=== PATIENT | female | born 1935 | race Caucasian/White ===

== ENCOUNTER 2023-06-30 08:06 | Emergency (ER) | payer MEDICARE, SELFPAY ==
[2023-06-30 08:12] VITALS: BP 112/80; PULSE 80; RESP 16; TEMP 37.3; O2SAT 96; BMI 31.2
--- NOTE | 2023-06-30 08:35 | PC.NURSE ---
pt c/o diarrhea since yesterday. took 1 immodium yesterday which seemed to help, but has not taken any today. Daughter at bedside answering all of the questions, despite pt being able to talk. Pt denies any associated abd pain, nausea/vomiting or feeling dizzy. Pt denies fevers as well.
[2023-06-30] MEDS: LOPERAMIDE HCL 1 MG/7.5 ML LIQUID PO (09:05)
--- NOTE | 2023-06-30 09:16 | PC.NURSE ---
another RN in attempting to get IV via Ultrasound. an IV was established this way but pt states take it out, it hurts too much . IV removed. Informed Dr. Daniels. Dr in to discuss with patient importance of IV and IVF. Pt agreeable. Attempting another one.
[2023-06-30 09:23] LABS: Basophils Percent Auto 0.3 % (0.2-2.0); Eosinophils Absolute Auto 0.1 10^3/uL (0.0-0.7); Eosinophils Percent Auto 1.7 % (0.9-7.0); Hemoglobin 12.9 g/dL (12.0-16.0); Immature Granulocytes Abs Auto 0.02 10^3/uL (0.00-0.03); Immature Granulocytes Pct Auto 0.3 % (0.0-0.5); Lymphocytes Absolute Auto 1.3 10^3/uL (1.2-3.8); Lymphocytes Percent Auto 18.9 % (20.5-60.0); Mean Corpuscular HGB Conc 32.3 g/dL (29.9-35.2); Mean Corpuscular Hemoglobin 30.6 pg (26.7-34.0); Mean Platelet Volume 11.4 fL (9.5-13.5); Monocytes Absolute Auto 0.5 10^3/uL (0.3-0.8); Monocytes Percent Auto 6.9 % (1.7-12.0); Neutrophils Absolute Auto 4.8 10^3/uL (1.4-6.5); Neutrophils Percent Auto 71.9 % (43.0-75.0); Platelet Count 88 10^3/uL (150-450); Red Blood Count 4.21 10^6/uL (4.20-5.40); Red Cell Distribution Width 12.7 % (11.0-15.0); White Blood Count 6.6 10^3/uL (4.0-11.0)
[2023-06-30 09:32] LABS: Anion Gap 12.3; BUN Creatinine Ratio 21.1; Calcium 9.2 mg/dL (8.5-10.1); Carbon Dioxide 28.9 mmol/L (21.0-32.0); Chloride 105 mmol/L (98-107); Estimated GFR (African America >60 (>=60); Estimated GFR (Non-African Ame 59 (>=60); Glucose 102 mg/dL (74-106); Potassium 4.2 mmol/L (3.5-5.1); Sodium 142 mmol/L (136-145)
[2023-06-30] MEDS: 0.9 % SODIUM CHLORIDE 1,000 ML 999 ML IV (10:02)
--- NOTE | 2023-06-30 11:28 | ED_ITS ---
HPI - General Adult General Chief complaint: Nausea/Vomiting/Diarrhea Stated complaint: DIARRHEA Time Seen by Provider: 06/30/23 08:34 Source: patient and family Mode of arrival: Wheelchair Limitations: no limitations History of Present Illness HPI narrative: this patient's here from home with numerous episodes of diarrhea. It's copious and watery. She's not been on any antibiotics. She's not had a fever. She's not seen blood. She's not had any vomiting. She has not taken any by mouth fluids despite not being nauseated. She was took one dose of an antidiarrheal. She has no complaints today and has minimal abdominal discomfort. He has no chest pain or shortness of breath. Related Data Home Medications Medication Instructions Recorded Confirmed aspirin 81 mg tablet,delayed 81 mg PO DAILY 06/30/23 06/30/23 release (Adult Aspirin Regimen) linaclotide 72 mcg capsule 72 mcg PO DAILY 06/30/23 06/30/23 (Linzess) lisinopril 10 mg tablet 10 mg PO DAILY 06/30/23 06/30/23 omeprazole 40 mg capsule,delayed 40 mg PO DAILY 06/30/23 06/30/23 release ropinirole 1 mg tablet 1 mg PO DAILY 06/30/23 06/30/23 simvastatin 20 mg tablet 20 mg PO DAILY 06/30/23 06/30/23 Allergies Allergy/AdvReac Type Severity Reaction Status Date / Time No Known Drug Allergies Allergy Verified 06/30/23 08:18 [facility] Social History Smoking status: Never smoker Exam Narrative Exam Narrative: awake alert no apparent distress vital signs are stable she's not tachycardic. Examination abdomen discloses good bowel sounds with no guarding rebound rigidity or peritoneal findings. Respiratory her lungs are clear is no respiratory distress. Heart sounds are regular. Extremities show no edema or evidence of phlebitis or cellulitis. Constitutional Vital Signs, click to edit/add: Last Vital Signs Temp 99.2 F 06/30/23 08:12 Pulse 80 06/30/23 08:12 Resp 16 06/30/23 08:12 BP 112/80 06/30/23 08:12 Pulse Ox 96 06/30/23 08:12 O2 Del Method Room Air 06/30/23 08:12 Course Vital Signs Vital signs: Vital Signs Temperature 99.2 F 06/30/23 08:12 Pulse Rate 80 06/30/23 08:12 Respiratory Rate 16 06/30/23 08:12 Blood Pressure 112/80 06/30/23 08:12 Pulse Oximetry 96 06/30/23 08:12 Oxygen Delivery Method Room Air 06/30/23 08:12 Temperature 99.2 F 06/30/23 08:12 Pulse Rate 80 06/30/23 08:12 Respiratory Rate 16 06/30/23 08:12 Blood Pressure 112/80 06/30/23 08:12 Pulse Oximetry 96 06/30/23 08:12 Oxygen Delivery Method Room Air 06/30/23 08:12 Medical Decision Making MDM Narrative Medical decision making narrative: based on her history patient will be given some IV fluids and one dose of Imodium. Her white blood cell count is normal as is her hemoglobin and hematocrit. Her been running creatinines are normal eyes are her electrolytes. despite numerous attempts for stool analysis here she was unable to provide a substantial amount despite being here for over several hours. We'll send her home with still basin cup. I do not believe she needs empiric anabiotic therapy at this time. Lab Data Labs: Lab Results 06/30/23 Range/Units 09:16 WBC 6.6 (4.0-11.0) 10^3/uL RBC 4.21 (4.20-5.40) 10^6/uL Hgb 12.9 (12.0-16.0) g/dL Hct 40.0 (36.0-48.0) % MCV 95.0 (81.0-99.0) fL MCH 30.6 (26.7-34.0) pg MCHC 32.3 (29.9-35.2) g/dL RDW 12.7 (11.0-15.0) % Plt Count 88 L (150-450) 10^3/uL MPV 11.4 (9.5-13.5) fL Neut % (Auto) 71.9 (43.0-75.0) % Lymph % (Auto) 18.9 L (20.5-60.0) % Piute % (Auto) 6.9 (1.7-12.0) % Eos % (Auto) 1.7 (0.9-7.0) % Baso % (Auto) 0.3 (0.2-2.0) % Neut # (Auto) 4.8 (1.4-6.5) 10^3/uL Lymph # (Auto) 1.3 (1.2-3.8) 10^3/uL Piute # (Auto) 0.5 (0.3-0.8) 10^3/uL Eos # (Auto) 0.1 (0.0-0.7) 10^3/uL Baso # (Auto) 0.0 (0.0-0.1) 10^3/uL Abs Immat Gran (auto) 0.02 (0.00-0.03) 10^3/uL Imm/Tot Granulo (auto) 0.3 (0.0-0.5) % Sodium 142 (136-145) mmol/L Potassium 4.2 (3.5-5.1) mmol/L Chloride 105 (98-107) mmol/L Carbon Dioxide 28.9 (21.0-32.0) mmol/L Anion Gap 12.3 BUN 19.0 H (7.0-18.0) mg/dL Creatinine 0.90 (0.55-1.02) mg/dL Est GFR ( Amer) >60 (>=60) Est GFR (Non-Af Amer) 59 L (>=60) BUN/Creatinine Ratio 21.1 Glucose 102 (74-106) mg/dL Calcium 9.2 (8.5-10.1) mg/dL Discharge Plan Discharge Chief Complaint: Nausea/Vomiting/Diarrhea Clinical Impression: Diarrhea Patient Disposition: Home, Self-Care Time of Disposition Decision: 11:30 Prescriptions / Home Meds: No Action Linzess 72 mcg capsule 72 mcg PO DAILY lisinopril 10 mg tablet 10 mg PO DAILY omeprazole 40 mg capsule,delayed release(DR/EC) 40 mg PO DAILY ropinirole 1 mg tablet 1 mg PO DAILY simvastatin 20 mg tablet 20 mg PO DAILY aspirin [Adult Aspirin Regimen] 81 mg tablet,delayed release (DR/EC) 81 mg PO DAILY Additional Instructions: drink additional fluids. Return stool specimen here for analysis may use Imodium [id number] Stand Alone Forms: Portal Instructions Referrals: Krunal Alberto MD [Primary Care Provider] - 1 week
== END 2023-06-30 11:56 | disposition home or self-care (01) ==
PROVIDERS: Emergency Provider Emergency Medicine Emergency Medical Services; PCP Family Medicine
DX: R19.7 Diarrhea, unspecified (principal); Z79.82 Long term (current) use of aspirin; Z79.899 Other long term (current) drug therapy
CPT/HCPCS: 36415; 80048; 85025; 87507; 99284

== ENCOUNTER 2023-07-08 08:53 | Outpatient (REF) | payer MEDICARE, SELFPAY ==
[2023-07-08 09:09] LABS: Adenovirus F 40/41 NOT DETECTED (NOT DETECTE); Astrovirus NOT DETECTED (NOT DETECTE); Campylobacter NOT DETECTED (NOT DETECTE); Cryptosporidium NOT DETECTED (NOT DETECTE); Cyclospora cayetanensis NOT DETECTED (NOT DETECTE); Entamoeba histolytica NOT DETECTED (NOT DETECTE); Enteroaggregative E.coli NOT DETECTED (NOT DETECTE); Enteropathogenic E.coli NOT DETECTED (NOT DETECTE); Enterotoxigenic E. coli NOT DETECTED (NOT DETECTE); Giardia lamblia NOT DETECTED (NOT DETECTE); Norovirus GI/GII NOT DETECTED (NOT DETECTE); Plesiomonas shigelloides NOT DETECTED (NOT DETECTE); Rotavirus A NOT DETECTED (NOT DETECTE); Salmonella NOT DETECTED (NOT DETECTE); Sapovirus NOT DETECTED (NOT DETECTE); Shiga-like toxin-producing E.C NOT DETECTED (NOT DETECTE); Shigella/Enteroinvasive E.coli NOT DETECTED (NOT DETECTE); Vibrio NOT DETECTED (NOT DETECTE); Vibrio cholerae NOT DETECTED (NOT DETECTE); Yersinia enterocolitica NOT DETECTED (NOT DETECTE)
== END 2023-07-08 08:54 | disposition home or self-care (01) ==
LOC: LAB 08:53
PROVIDERS: PCP Family Medicine; Visit Provider Emergency Medicine Emergency Medical Services
DX: R19.7 Diarrhea, unspecified (principal)
CPT/HCPCS: 87507

== ENCOUNTER 2023-08-10 01:20 | Observation (INO) | payer MEDICARE, SELFPAY ==
[2023-08-10 01:22] VITALS: BP 170/88; PULSE 82; RESP 20; TEMP 36.7; O2SAT 99; BMI 28.4
--- NOTE | 2023-08-10 01:32 | PC.NURSE ---
pt brought in by ems because patient states that yesterday she was quilting and when she stood up she had a dull aching pain starting from left hip down to left calf. patient states that she thinks left leg is more swollen than right. patients left leg doesn't appear red or swollen on time of arrival. patient denies hx of blood clots. pt denies fall or injury. not on blood thinners. pulses palpable. patient states leg is painful to touch at times.
--- NOTE | 2023-08-10 01:35 | XR_ITS ---
The [address] [address] Patient Name: NORY BERG MRN: [id number] date: 1935 Sex: F Assigned Patient Location: ER Current Patient Location: ER Accession/Order Number: [id number] Exam Date: 08/10/2023 01:55 Report Date: 08/10/2023 03:02 At the request of: MAXIM GONZALEZ Procedure: XR lumbar spine 2-3V EXAM: XR lumbar spine 2-3V HISTORY: atraumatic pain COMPARISON: CT abdomen pelvis 08/16/2020 TECHNIQUE: 3 views lumbar spine x-rays frontal and lateral FINDINGS: No vertebral body height loss, discrete acute fracture line, or traumatic subluxation. Multilevel intervertebral disc degeneration height loss greatest at L4-L5 and and L3-L4. Multilevel lower lumbar facet arthropathy. XR/XR lumbar spine 2-3V IMPRESSION: Multilevel intervertebral disc degeneration height loss greatest at L4-L5 and L3-L4. Multilevel lower lumbar facet arthropathy. Correlate clinically. If there is lumbar radiculopathy, then MRI can better evaluate for any nerve impingement as indicated. Electronically authenticated by: EDU JOSHI Date: 08/10/2023 03:02
--- NOTE | 2023-08-10 01:35 | XR_ITS ---
The [place] [id number] Patient Name: NORY BERG MRN: [id number] date: 1935 Sex: F Assigned Patient Location: ER Current Patient Location: ER Accession/Order Number: [id number] Exam Date: 08/10/2023 01:55 Report Date: 08/10/2023 03:16 At the request of: MAXIM GONZALEZ Procedure: XR hip LT min 2V EXAM: XR hip LT min 2V HISTORY: atraumatic pain COMPARISON: CT abdomen pelvis 08/16/2020, left hip pelvic x-ray 09/19/2019 TECHNIQUE: 3 views left hip x-rays FINDINGS: Apparent foreshortening of the left femoral neck. 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 Enthesophyte at the left femoral greater trochanter. XR/XR hip LT min 2V IMPRESSION: Apparent foreshortening of the left femoral neck probably secondary to positioning artifact. Electronically authenticated by: EDU JOSHI Date: 08/10/2023 03:16
--- NOTE | 2023-08-10 01:36 | ED.EXTPRO1 ---
HPI - Extremity Problem General Chief complaint: Extremity Problem, Nontraumatic Stated complaint: L SIDE PAIN Time Seen by Provider: 08/10/23 01:30 Source: patient Mode of arrival: ambulance Limitations: no limitations History of Present Illness HPI Narrative: 88-year-old female presents for left leg pain. It started on August 08. She was seated and she went to stand up and had sudden onset of her left leg with pain. She did not fall or twist. Her back hurts as well. She has no history of deep vein thrombosis. No chest pain or shortness of breath. It's better when she lays still. Related Data Home Medications Medication Instructions Recorded Confirmed aspirin 81 mg tablet,delayed 81 mg PO DAILY 06/30/23 06/30/23 release (Adult Aspirin Regimen) linaclotide 72 mcg capsule 72 mcg PO DAILY 06/30/23 06/30/23 (Linzess) lisinopril 10 mg tablet 10 mg PO DAILY 06/30/23 06/30/23 omeprazole 40 mg capsule,delayed 40 mg PO DAILY 06/30/23 06/30/23 release ropinirole 1 mg tablet 1 mg PO DAILY 06/30/23 06/30/23 simvastatin 20 mg tablet 20 mg PO DAILY 06/30/23 06/30/23 Allergies Allergy/AdvReac Type Severity Reaction Status Date / Time No Known Drug Allergies Allergy Verified 06/30/23 08:18 Review of Systems ROS Narrative A ten point review of systems is negative except as noted above. PFSH PFSH Social History Smoking status: Never smoker Exam Narrative Exam Narrative: Nurses note and vital signs reviewed and patient is not hypoxic. General: The patient appears well and in no apparent distress. Patient is resting comfortably on cart. Skin: Warm, dry, no pallor noted. There is no rash noted. Head: Normocephalic, atraumatic Eye: Normal conjunctiva, no drainage Ears, Nose, Mouth, and Throat: oral mucosa is moist. Nares patent. Cardiovascular: Regular Rate and Rhythm Respiratory: Patient is in no distress, no accessory muscle use, lungs are clear to auscultation, no wheezing, rales or rhonchi Back: non-tender GI: soft and nontender Musculoskeletal: the left leg is not swollen. There is no erythema or bruising. No calf swelling or masses. No ankle edema. Neurological: A&O, normal speech Psychiatric: Cooperative Constitutional Vital Signs, click to edit/add: Last Vital Signs Temp 98.1 F 08/10/23 01:22 Pulse 82 08/10/23 01:22 Resp 20 08/10/23 01:22 BP 170/88 H 08/10/23 01:22 Pulse Ox 99 08/10/23 01:22 O2 Del Method Room Air 08/10/23 01:22 Course Vital Signs Vital signs: Vital Signs Temperature 98.1 F 08/10/23 01:22 Pulse Rate 82 08/10/23 01:22 Respiratory Rate 20 08/10/23 01:22 Blood Pressure 170/88 H 08/10/23 01:22 Pulse Oximetry 99 08/10/23 01:22 Oxygen Delivery Method Room Air 08/10/23 01:22 Temperature 98.1 F 08/10/23 01:22 Pulse Rate 82 08/10/23 01:22 Respiratory Rate 20 08/10/23 01:22 Blood Pressure 170/88 H 08/10/23 01:22 Pulse Oximetry 99 08/10/23 01:22 Oxygen Delivery Method Room Air 08/10/23 01:22 MDM - Extremity (Nontraumatic) MDM Narrative Medical decision making narrative: X-rays of her lumbar spine and hip and the CAT scan of her hip per radiologist showed no acute findings. Left knee and left ankle x-rays are ordered and pending. She is unable to ambulate and will be admitted for possible physical therapy evaluation and further care. Treatment diagnosis and follow-up were discussed with the patient. Lab Data Labs: Lab Results 08/10/23 Range/Units 01:48 D-Dimer <0.19 (<=0.59) mg/L FEU Discharge Plan Discharge Chief Complaint: Extremity Problem, Nontraumatic Clinical Impression: 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, Left leg pain Patient Disposition: Admitted as Observation Time of Disposition Decision: 03:28 Condition: Good
--- NOTE | 2023-08-10 02:19 | CT_ITS ---
The [address] [address] Patient Name: NORY BERG MRN: [id number] date: 1935 Sex: F Assigned Patient Location: ER Current Patient Location: ER Accession/Order Number: [id number] Exam Date: 08/10/2023 02:40 Report Date: 08/10/2023 03:13 At the request of: MAXIM GONZALEZ Procedure: CT hip LT wo con EXAM: CT hip LT wo con HISTORY: atraumatic pain COMPARISON: CT abdomen pelvis 08/16/2020 TECHNIQUE: Multiple axial views CT left hip without IV contrast. Coronal sagittal reformats. FINDINGS: No discrete acute fracture line, dislocation, or focal osseous erosion. No aggressive cortical destruction. No large hip joint effusion or hematoma. Moderate arthritic changes of the left hip joint with joint space loss and subchondral geodes. Enthesophyte at the left femoral greater trochanter. CT/CT hip LT wo con IMPRESSION: No CT evidence for acute left hip bony injury. 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 Correlate clinically. If there is persistent clinical concern for any left hip internal derangement or soft tissue abnormality, then MRI left hip without contrast can better evaluate as indicated. Electronically authenticated by: EDU JOSHI Date: 08/10/2023 03:13
[2023-08-10 02:21] LABS: D Dimer <0.19 mg/L FEU (<=0.59)
--- NOTE | 2023-08-10 03:30 | PC.NURSE ---
This nurse took over pt care for Heydi CARRASCO Pt is currently resting in bed with daughter at bedside This nurse enters with Dr. Pena to discuss admission or discharge Pt states she wants to stay because she cannot get around at home in this condition Pt denies needs or questions at this time
--- NOTE | 2023-08-10 03:33 | XR_ITS ---
The [place] [id number] Patient Name: NORY BERG MRN: [id number] date: 1935 Sex: F Assigned Patient Location: ER Current Patient Location: ER Accession/Order Number: [id number] Exam Date: 08/10/2023 03:40 Report Date: 08/10/2023 04:09 At the request of: MAXIM GONZALEZ Procedure: XR ankle LT min 3V EXAM: XR ankle LT min 3V, XR knee LT 3V HISTORY: atraumatic pain COMPARISON: None. TECHNIQUE: 3 views of the left knee and 3 views of the left ankle were obtained. FINDINGS: Left knee: No acute fracture or dislocation is seen. There are mild degenerative changes of the left knee. There is a small quadriceps patellar enthesophyte. There is no significant left knee joint effusion. Left ankle: No acute fracture or dislocation is seen. The ankle mortise is congruent. There is no significant left ankle joint effusion. There are tiny Achilles and small plantar calcaneal enthesophytes. XR/XR ankle LT min 3V IMPRESSION: 1. 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 2. No acute osseous abnormality of the left ankle is seen. Electronically authenticated by: Afsaneh MOORE Date: 08/10/2023 04:09
--- NOTE | 2023-08-10 03:33 | XR_ITS ---
The [place] [id number] Patient Name: NORY BERG MRN: [id number] date: 1935 Sex: F Assigned Patient Location: ER Current Patient Location: ER Accession/Order Number: [id number] Exam Date: 08/10/2023 03:40 Report Date: 08/10/2023 04:09 At the request of: MAXIM GONZALEZ Procedure: XR knee LT 3V EXAM: XR ankle LT min 3V, XR knee LT 3V HISTORY: atraumatic pain COMPARISON: None. TECHNIQUE: 3 views of the left knee and 3 views of the left ankle were obtained. FINDINGS: Left knee: No acute fracture or dislocation is seen. There are mild degenerative changes of the left knee. There is a small quadriceps patellar enthesophyte. There is no significant left knee joint effusion. Left ankle: No acute fracture or dislocation is seen. The ankle mortise is congruent. There is no significant left ankle joint effusion. There are tiny Achilles and small plantar calcaneal enthesophytes. XR/XR knee LT 3V IMPRESSION: 1. 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 2. No acute osseous abnormality of the left ankle is seen. Electronically authenticated by: Afsaneh MOORE Date: 08/10/2023 04:09
[2023-08-10 03:45] VITALS: BP 156/88; PULSE 61; RESP 18; O2SAT 97
[2023-08-10 04:32] VITALS: BP 132/78; PULSE 82; RESP 18; TEMP 36.8; O2SAT 95; BMI 30.3
[2023-08-10 05:05] VITALS: BP 120/62; PULSE 62; RESP 20; TEMP 36.9; O2SAT 97
--- NOTE | 2023-08-10 05:40 | W.PM.TELEPN ---
Progress Note: Subjective Subjective Interval history: Chief Complaint: Severe pain in the left lower extremity (hip area) History of Present Illness: This is a very pleasant 88 years old female, independent prior to coming to the hospital who presented to emergency room for evaluation of above complaints. Patient stating that she has been in his usual state of health when suddenly developed pain in his left hip area. She denies any falls. No trauma. No fevers or chills. Evaluation in the emergency room including detailed imaging studies with CT of the area did not reveal any significant pathology. Patient unable to ambulate. Going to be staying in the hospital for evaluation by physical therapy and optimization of the pain control Exam Narrative Exam Narrative: ROS: 1.General: no fever, chills, not in distress 2.HEENT: no CHANG, no blurry vision, no swallow problems, no nasal congestion, no sore throat 3.Pulmonary: no cough, SOB, wheezes 4.CVS: no CP, no palpitations, no QUINONES, no SOB, no intermittent claudication 5.GI: no nausea, vomiting or diarrhea, no abdominal pain, no constipation, no hematemesis or hematochezia 6.: no renal colic, no hematuria, urinary frequency or urgency 7.Extremities: no edema 8.Neurological: no dizziness, vertigo, double or blurry vision, no no focal weakness, no paresthesia, no swallow or speech problems 9.Musculosceletal: See above 10.Dermatological: no skin rashes, no lesions, no pruritus 11.Hematological: no bleeding, no hx/o clots 12.Endocrinological: no heat/cold intolerance, no hx/o diabetes 13.Psychiatric: no suicidal or homicidal thoughts Physical Exam: Not in distress, pleasant, lucid, cooperative, Head - atraumatic, eyes - pupils equal, round, reactive to light, extra ocular movement intact, MMM Neck - supple, thyroid not enlarged, LN not palpated Lungs - clear to auscultation, no dullness on percussion CVS - heart sounds S1, S2, no additional murmurs gallop, regular rate and rhythm Gastrointestinal?abdomen is soft, non-tender, non-distended, no organomegaly, positive bowel sounds Extremities no clubbing, cyanosis or edema Neurological?cranial nerve II?XII grossly intact, no meningeal signs, no cerebellar signs, no sensory deficit Musculoskeletal - 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 The reason unclear. Imaging studies failed to reveal any significant abnormalities. No fractures. No pain at rest Continue with pain medications as needed Follow-up with physical therapist for further recommendations Patient might need placement at longterm facility if unable to ambulate on her own Verify home medications Plan As the provider for the telehealth service, I attest that I introduced myself to the patient, provided my credentials, disclosed by location and determined that based on a review of the patient's chart and discussion with members of the patient's treatment team, telemedicine via real-time, 2 way, and interactive audio and video platform is an appropriate and effective means of providing the service. ?The patient and I mutually agree this visit is appropriate for telemedicine. ?[place] ?The encounter took approximately 35 minutes. ?The nurse was present during the entire time and I was able to move the stethoscope in appropriate directions. ?The patient was evaluated at the Hospital ? Portions of this note may be dictated using [employer] voice recognition software. Variances in spelling and vocabulary are possible and unintentional. Not all errors may be caught and/or corrected. Please notify the author if any discrepancies are noted and/or if the meaning of any statement is unclear.? ? Patient verbally consented for treatment via video visit with patient currently located at the [facility] and provider located in [place]. Telemedicine Attestation Telemedicine Attestation I conducted this encounter from [[place]] via secure live, [id number] video conference with the patient, located at [facility] with [intractable left lower extremity pain]. Prior to the interview, the risks and benefits of telemedicine were discussed with the patient and verbal consent was obtained.
[2023-08-10 05:49] LABS: Anion Gap 16.8; BUN Creatinine Ratio 23.8; Basophils Percent Auto 0.3 % (0.2-2.0); Calcium 9.2 mg/dL (8.5-10.1); Carbon Dioxide 25.1 mmol/L (21.0-32.0); Chloride 104 mmol/L (98-107); Eosinophils Absolute Auto 0.1 10^3/uL (0.0-0.7); Eosinophils Percent Auto 1.2 % (0.9-7.0); Estimated GFR (African America >60 (>=60); Estimated GFR (Non-African Ame >60 (>=60); Glucose 103 mg/dL (74-106); Hematocrit 42.7 % (36.0-48.0); Hemoglobin 13.6 g/dL (12.0-16.0); Immature Granulocytes Abs Auto 0.01 10^3/uL (0.00-0.03); Immature Granulocytes Pct Auto 0.1 % (0.0-0.5); Lymphocytes Absolute Auto 3.2 10^3/uL (1.2-3.8); Mean Corpuscular HGB Conc 31.9 g/dL (29.9-35.2); Mean Corpuscular Hemoglobin 30.4 pg (26.7-34.0); Mean Corpuscular Volume 95.5 fL (81.0-99.0); Mean Platelet Volume 11.4 fL (9.5-13.5); Monocytes Absolute Auto 0.8 10^3/uL (0.3-0.8); Monocytes Percent Auto 10.6 % (1.7-12.0); Neutrophils Absolute Auto 3.6 10^3/uL (1.4-6.5); Neutrophils Percent Auto 46.8 % (43.0-75.0); Platelet Count 192 10^3/uL (150-450); Potassium 3.9 mmol/L (3.5-5.1); Red Blood Count 4.47 10^6/uL (4.20-5.40); Red Cell Distribution Width 12.6 % (11.0-15.0); Sodium 142 mmol/L (136-145); White Blood Count 7.7 10^3/uL (4.0-11.0)
[2023-08-10 07:49] LABS: Bilirubin Urine NEGATIVE (NEGATIVE); Blood Urine NEGATIVE (NEGATIVE); Clarity Urine CLEAR (CLEAR); Color Urine LT. YELLOW (YELLOW); Glucose Urine UA NEGATIVE (NEGATIVE); Ketones Urine NEGATIVE (NEGATIVE); Leukocyte Esterase Urine NEGATIVE (NEGATIVE); Nitrite Urine NEGATIVE (NEGATIVE); Protein Urine NEGATIVE (NEG/TRACE); Urobilinogen Urine 0.2 EU/dL (0.2-1.0)
[2023-08-10 07:58] LABS: Bacteria Urine TRACE #/HPF (NONE SEEN); Mucus Urine NONE SEEN (NONE SEEN); RBC Urine 0-2 #/HPF (0-2); WBC Urine NONE SEEN #/HPF (NONE SEEN)
[2023-08-10 07:59] LABS: Cast Seen? NONE SEEN #/LPF (NONE SEEN); Crystals Seen? None Seen #/HPF (None Seen); Squamous Epithelial Cell Urine RARE #/LPF (NONE/RARE)
--- NOTE | 2023-08-10 08:13 | P.HP_ITS ---
H&P: HPI History of Present Illness Chief complaint: L SIDE PAIN LT LEG PAIN Narrative: Patient presented to the emergency room intractable left hip pain. Unable to ambulate secondary to the pain. Evaluation in the ER with x-rays of hip knee ankle and hip x-ray CT scan showed no fracture. Patient mated for pain control. She does feel improved this morning with less been given so far. 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, unspecified (ICD-10) Heel spur ?M77.30 - Calcaneal spur, unspecified foot (ICD-10) Surgical History (Updated 08/10/23 @ 04:38 by Warren Banegas) H/O: hysterectomy ?Z90.710 - Acquired absence of both cervix and uterus (ICD-10) Family History (Updated 08/10/23 @ 04:41 by Warren Banegas) Sister Family history of CHF (congestive heart failure) Family history of diabetes mellitus Mother Family history of cancer Daughter Family history of stroke Social History (Updated 08/10/23 @ 04:47 by Warren Banegas) Within the past year, how often did you have a drink containing alcohol: never Within the past year, how often did you have six or more drinks on one occasion: never Score interpretation: A score less than 3 is consistent with normal alcohol consumption. 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 Little interest or pleasure in doing things: not at all Feeling down, depressed, or hopeless: not at all Feel stressed/tense/nervous/anxious/difficulty sleeping: not at all Life stressors: recent of family or friend Life stressor details: sister just Due to disability, difficulty making decisions: No Do you think of yourself as: straight/heterosexual Gender Identity: female Meds Home Medications and Allergies Home Medications Medication Instructions Recorded Confirmed Type aspirin 81 mg tablet,delayed 81 mg PO DAILY 06/30/23 06/30/23 History release (Adult Aspirin Regimen) linaclotide 72 mcg capsule 72 mcg PO DAILY 06/30/23 06/30/23 History (Linzess) lisinopril 10 mg tablet 10 mg PO DAILY 06/30/23 06/30/23 History omeprazole 40 mg capsule,delayed 40 mg PO DAILY 06/30/23 06/30/23 History release ropinirole 1 mg tablet 1 mg PO DAILY 06/30/23 06/30/23 History simvastatin 20 mg tablet 20 mg PO DAILY 06/30/23 06/30/23 History prednisone 20 mg tablet 20 mg PO TID #15 tabs 08/10/23 Rx Allergies Allergy/AdvReac Type Severity Reaction Status Date / Time No Known Drug Allergies Allergy Verified 08/10/23 04:58 Exam Constitutional Vital Signs, click to edit/add: Last Vital Signs Temp 98.4 F 08/10/23 05:05 Pulse 62 08/10/23 05:05 Resp 20 08/10/23 05:05 BP 120/62 08/10/23 05:05 Pulse Ox 97 08/10/23 05:05 O2 Del Method Room Air 08/10/23 05:05 Documenting provider has reviewed patient's vital signs: yes Common normals: no apparent distress Chest Common normals: inspection of chest normal Respiratory Common normals: normal respiratory effort and no retractions Cardio Common normals: regular rate, regular rhythm and no murmurs GI Common normals: Normal to inspection, nondistended, normoactive bowel sounds present Results Labs Labs: Short CBC 08/10/23 Range/Units 01:48 WBC 7.7 (4.0-11.0) 10^3/uL Hgb 13.6 (12.0-16.0) g/dL Hct 42.7 (36.0-48.0) % Plt Count 192 (150-450) 10^3/uL BMP 08/10/23 01:48 Sodium 142 Potassium 3.9 Chloride 104 Carbon Dioxide 25.1 BUN 20.0 H Creatinine 0.84 Glucose 103 Calcium 9.2 Urine 08/10/23 Range/Units 06:23 Urine Color Lt. yellow (YELLOW) Urine Clarity Clear (CLEAR) Urine pH 8.0 (5.0-9.0) Ur Specific [place] 1.010 (1.005-1.025) Urine Protein Negative (NEG/TRACE) mg/dL Urine Glucose (UA) Negative (NEGATIVE) mg/dL Assessment and Plan Assessment and Plan (1) Left leg pain: Plan Intractable left hip pain-improved this morning so far, have physical therapy work with patient. Add Solu-Medrol 1 dose of Toradol, if improved later this morning after PT evaluation possible discharge to home. Medications see list, follow-up with me in the office within the next week. Hypertension by history-stable currently. Continue with home medications GERD-continue with home medications Restless leg syndrome-continue with home medications Hypercholesterolemia-continue home medications Pain is overall improved we will maintain observation status, depending on outcome of physical therapy evaluation
[2023-08-10 08:39] VITALS: BP 124/82
[2023-08-10] MEDS: ROPINIROLE HCL 1 MG TABLET PO (08:39)
[2023-08-10] MEDS: LISINOPRIL 10 MG TABLET PO (08:39)
[2023-08-10] MEDS: OMEPRAZOLE 40 MG CAPSULE.DR PO (08:39)
[2023-08-10] MEDS: METHYLPREDNISOLONE SOD SUCC PF 125 MG/2 ML VIAL IVP (08:42)
[2023-08-10] MEDS: ASPIRIN 81 MG TABLET.DR PO (08:43)
[2023-08-10] MEDS: KETOROLAC TROMETHAMINE 30 MG/ML VIAL 15 MG IVP (08:43)
--- NOTE | 2023-08-10 12:05 | SWNOTE1 ---
SW met with pt to discuss dc needs. Pt's daughter was in room as well. Pt worked with physical therapy and they did recommend potentially home health or outpt. Pt would like to do home health and have therapy come in the home versus outpt, as long as insurance covers it. Pt does live at home in an apartment that is connected to her daughter's home. Pt is likely going to be discharged home today. ARTURO provided pt and daughter with list from medicare.gov with star ratings for home health companies. Pt's daughter suggested [facility] . SW called [facility] , there admissions person is not going to be in until 2:00. ARTURO sent referral to [facility].
--- NOTE | 2023-08-10 12:12 | SWNOTE1 ---
SW also reviewed the [facility] form with pt and daughter, they voiced understanding. No questions at this time. Pt signed form, original given to pt and copy placed in chart.
--- NOTE | 2023-08-10 12:26 | SWNOTE1 ---
[facility] does not have the staffing. SW sent referral to [address]
--- NOTE | 2023-08-10 12:28 | SWNOTE1 ---
SW received call from nursing and pt's daughter is on way back to pick her up. SW will call pt/daughter with the company that is able to accept. Pt does have 2 walkers at home that she can use.
--- NOTE | 2023-08-10 14:41 | SWNOTE1 ---
[facility] was able to accept. ARTURO sent over final orders. ARTURO called and left message for pt and her daughter with the name of the company that has accepted.
--- NOTE | 2023-08-11 15:43 | CM.DCFOLLOWU ---
1st attempt No answer
--- NOTE | 2023-08-12 14:42 | CM.DCFOLLOWU ---
Person spoke with: Patient How are you feeling? Much better How is your pain? No pain Did you understand your discharge instructions? Yes Do you have any questions about your discharge instructions? No Were you given any prescriptions at discharge? Yes Were you able to get your prescriptions filled? Yes Do you understand how to take your medications as ordered? Yes Do you have any questions about your follow up appointment and do you plan to keep your follow up appointment? No and yes I will be there. Is there anything else that you would like to discuss? No Questions/Comments/Concerns/Other:
== END 2023-08-10 12:45 | disposition home health service (06) ==
LOC: ER 04:10 → MS 04:26
PROVIDERS: Internal Medicine; Admitting Provider Family Medicine; Emergency Provider Emergency Medicine; PCP Family Medicine; Visit Provider Family Medicine
DX: M25.552 Pain in left hip (principal); I10 Essential (primary) hypertension; K21.9 Gastro-esophageal reflux disease without esophagitis; G25.81 Restless legs syndrome; E78.00 Pure hypercholesterolemia, unspecified; Z90.710 Acquired absence of both cervix and uterus; Z79.82 Long term (current) use of aspirin; Z79.899 Other long term (current) drug therapy; R26.2 Difficulty in walking, not elsewhere classified
CPT/HCPCS: 36415; 72100; 73502; 73562; 73610; 73700; 80048; 81001; 85025; 85378; 87086; 96374; 96375; 97161; 97530; 99285; G0378; J2930; Q3014

== ENCOUNTER 2023-11-25 11:00 | Outpatient (OUT) | payer MEDICARE, SELFPAY ==
[2023-11-25 12:55] LABS: INR 1.03; Partial Thromboplastin Time 29.1 sec (22.3-36.2); Prothrombin Time 10.9 sec (9.0-11.6)
[2023-11-25 14:13] LABS: Basophils Percent Auto 0.3 % (0.2-2.0); Eosinophils Absolute Auto 0.2 10^3/uL (0.0-0.7); Hemoglobin 13.3 g/dL (12.0-16.0); Immature Granulocytes Abs Auto 0.01 10^3/uL (0.00-0.03); Immature Granulocytes Pct Auto 0.1 % (0.0-0.5); Lymphocytes Absolute Auto 3.7 10^3/uL (1.2-3.8); Lymphocytes Percent Auto 42.7 % (20.5-60.0); Mean Corpuscular HGB Conc 32.4 g/dL (29.9-35.2); Mean Corpuscular Hemoglobin 31.1 pg (26.7-34.0); Mean Platelet Volume 11.3 fL (9.5-13.5); Monocytes Absolute Auto 0.9 10^3/uL (0.3-0.8); Monocytes Percent Auto 10.3 % (1.7-12.0); Neutrophils Absolute Auto 3.9 10^3/uL (1.4-6.5); Neutrophils Percent Auto 44.6 % (43.0-75.0); Platelet Count 198 10^3/uL (150-450); Red Blood Count 4.27 10^6/uL (4.20-5.40); Red Cell Distribution Width 12.3 % (11.0-15.0); White Blood Count 8.7 10^3/uL (4.0-11.0)
== END 2023-11-25 11:01 | disposition home or self-care (01) ==
LOC: LAB 11:01
PROVIDERS: PCP Family Medicine; Visit Provider Family Medicine
DX: K92.1 Melena (principal); I10 Essential (primary) hypertension
CPT/HCPCS: 36415; 85025; 85610; 85730

== ENCOUNTER 2024-04-06 10:12 | Outpatient (OUT) | payer MEDICARE, SELFPAY ==
--- NOTE | 2024-04-06 10:22 | US_ITS ---
[place] [id number] Patient Name: NORY BERG MRN: [id number] date: 1935 Sex: F Assigned Patient Location: US Current Patient Location: US Accession/Order Number: [id number] Exam Date: 04/06/2024 10:23 Report Date: 04/06/2024 12:15 At the request of: ANGÉLICA SIMMS Procedure: US venous doppler LE LT EXAM: US venous doppler LE LT HISTORY: Left Leg Pain M79.605, Bilateral Peripheral Artery Disease COMPARISON: None. TECHNIQUE: Grayscale, color and Doppler FINDINGS: Region: Left leg Thrombus: None Flow: Normal Augmentation: Normal Compressibility: Normal US/US venous doppler LE LT IMPRESSION: No deep or superficial vein thrombus in the left leg Electronically authenticated by: ABRAHAM LAI Date: 04/06/2024 12:15
--- NOTE | 2024-04-06 10:22 | US_ITS ---
[place] [id number] Patient Name: NORY BERG MRN: [id number] date: 1935 Sex: F Assigned Patient Location: Current Patient Location: US Accession/Order Number: [id number] Exam Date: 04/06/2024 10:23 Report Date: 04/06/2024 12:16 At the request of: ANGÉLICA SIMMS Procedure: US arterial duplex LE BI EXAMINATION: US arterial duplex LE BI HISTORY: Left Leg Pain, Bilateral Peripheral Artery Disease COMPARISON: No relevant comparison available. TECHNIQUE: Color duplex Doppler ultrasound evaluation analysis was performed in the usual manner. FINDINGS: RIGHT LOWER EXTREMITY ARTERIAL Minimal atherosclerotic plaque. Triphasic waveforms External Iliac PSV: 123.2 cm/s External Iliac EDV: 0.0 cm/s Common Femoral PSV: 116.7 cm/s Common Femoral EDV: 0.0 cm/s Superficial Femoral Proximal PSV: 95.7 cm/s Proximal EDV: 0.0 cm/s Mid PSV: 68.2 cm/s Mid EDV: 0.0 cm/s Distal PSV: 58.5 cm/s Distal EDV: 0.0 cm/s Popliteal Proximal PSV: 51.9 cm/s Popliteal Proximal EDV: 0.0 cm/s Posterior Tibial Proximal PSV: 81.9 cm/s Proximal EDV: 0.0 cm/s Mid PSV: 58.5 cm/s Mid EDV: 0.0 cm/s Distal PSV: 73.9 cm/s Distal EDV: 1.9 cm/s Anterior Tibial Proximal PSV: 41.7 cm/s Proximal EDV: 0.0 cm/s Mid PSV: 58.6 cm/s Mid EDV: 0.0 cm/s Distal PSV: 52.1 cm/s Distal EDV: 0.0 cm/s LEFT LOWER EXTREMITY ARTERIAL Minimal atherosclerotic plaque. Triphasic waveforms External Iliac PSV: 119.9 cm/s External Iliac EDV: 0.0 cm/s Common Femoral PSV: 118.8 cm/s Common Femoral EDV: 0.0 cm/s Superficial Femoral Proximal PSV: 87.1 cm/s Proximal EDV: 0.0 cm/s Mid PSV: 77.3 cm/s Mid EDV: 0.0 cm/s Distal PSV: 45.8 cm/s Distal EDV: 0.0 cm/s Popliteal Proximal PSV: Popliteal Proximal EDV: Posterior Tibial Proximal PSV: 92.5 cm/s Proximal EDV: 0.0 cm/s Mid PSV: 80.5 cm/s Mid EDV: 3.6 cm/s Distal PSV: 57.3 cm/s Distal EDV: Anterior Tibial Proximal PSV: 60.1 cm/s Proximal EDV: 0.0 cm/s Mid PSV: 52.1 cm/s Mid EDV: 0.0 cm/s Distal PSV: 53.7 cm/s Distal EDV: 0.0 cm/s US/US arterial duplex LE BI IMPRESSION: No flow significant stenosis, aneurysm or occlusion Electronically authenticated by: ABRAHAM LAI Date: 04/06/2024 12:16
== END 2024-04-06 10:13 | disposition home or self-care (01) ==
LOC: US 10:14
PROVIDERS: PCP Family Medicine; Visit Provider Family Medicine
DX: M79.605 Pain in left leg (principal); I73.9 Peripheral vascular disease, unspecified
CPT/HCPCS: 93925; 93971

== ENCOUNTER 2024-06-23 12:30 | Outpatient (OUT) | payer MEDICARE, SELFPAY ==
--- NOTE | 2024-06-23 12:31 | VEIN_ITS ---
The [address] [address] Patient Name: NORY BERG MRN: [id number] date: 1935 Sex: F Assigned Patient Location: Current Patient Location: Accession/Order Number: [id number] Exam Date: 06/23/2024 12:31 Report Date: 06/23/2024 17:34 At the request of: JAS KUMAR Procedure: VC SEGMENTAL PRESSURES EXAM: VC SEGMENTAL PRESSURES HISTORY: I73.9 Leg pain COMPARISON: None. TECHNIQUE: Resting ABIs and segmental limb pressures FINDINGS: Right resting LEONARD 1.25. Left resting LEONARD 1.08. No gradients were noted. Toe brachial indices are normal. VEIN/VC SEGMENTAL PRESSURES IMPRESSION: Normal resting ABIs. Electronically authenticated by: Devaughn LUKE Date: 06/23/2024 17:34
--- OUTSIDE RECORDS SUMMARY | 2024-06-23 12:52 | XMS_ITS | CCD ---
Author Organization [facility] Care Team Providers Care Mail Officer Name Role Phone DEMI ., DR LINDSAY Primary Care Unavailable HOY ., DR LINDSAY Admitting Unavailable HOY ., DR LINDSAY Attending Unavailable HOY ., DR LINDSAY Primary Care Unavailable REINECK, DR SHANIQUE Weber Attending Unavailabl e REINECK, DR SHANIQUE Weber Consulting Unavailabl e REINECK, DR SHANIQUE Weber Admitting Unavailabl e ZIEBJORGE, DR IVY Morse Consulting Unavailable ROGELIO ., MONTY Attending Unavailable ROGELIO ., MONTY Consulting Unavailable ROGELIO ., MONTY Admitting Unavailable HOY ., DR LINDSAY Primary Care Unavailable ABRAHAM ARNETT Consulting Unavailable HOY ., DR LINDSAY Primary Care Unavailable HOY ., DR LINDSAY Admitting Unavailable HOY ., DR LINDSAY Attending Unavailable HOY ., DR LINDSAY Consulting Unavailable HOY ., DR LINDSAY Admitting Unavailable HOY ., DR LINDSAY Attending Unavailable HOY ., DR LINDSAY Consulting Unavailable HOY ., DR LINDSAY Primary Care Unavailable JAS KUMAR Attending Unavailable JAS KUMAR Attending Unavailable Allergies Allergy Classification Reported Allergen(s) Allergy Type Date of Onset Reaction(s) Facility (1 source) Chocolate Drug allergy (disorder) [facility] Repository (1 source) piperazine Drug Allergy [facility] Repository Problems Active Problems Problem Classification Problem Date Documented Da te Episodic/Chronic Cancer of uterus (1 source) Personal history of malignant neoplasm of other parts of uterus; 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: [PERS HX MAL NEOPLSM OTH PART UTRUS] Onset: 03-11-2023 Episodic Congestive heart failure; nonhypertensive (1 source) Unspecified diastolic (congestive) heart failure; 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: [UNSPECIFIED DIASTOLIC HEART FAILURE] Onset: 10-04-2022 Chronic Disorders of lipid metabolism (2 sources) Pure hypercholesterolemia , unspecified; 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: [Hyperlipidemia, unspecified] Onset: 10-04-2022 Chronic Esophageal disorders (1 source) Gastro-esophageal reflux disease without esophagitis; 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: [GERD WITHOUT ESOPHAGITIS] Onset: 03-11-2023 Chronic Essential hypertension (1 source) Essential (primary) hypertension; 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: [ESSENTIAL PRIMARY HYPERTENSION] Onset: 03-11-2023 Chronic Hypertension with complications and secondary hypertension (1 source) Hypertensive heart disease with heart failure; 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: [HTN HEART DISEASE W/HEART FAIL] Onset: 10-04-2022 Chronic Nonspecific chest pain (5 sources) Chest pain, unspecified; 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: [CHEST PAIN UNSPECIFIED] Onset: 10-04-2022 Episodic Nutritional deficiencies (1 source) Vitamin D deficiency, unspecified; 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: [VITAMIN D DEFICIENCY UNSPECIFIED] Onset: 10-04-2022 Chronic Osteoarthritis (1 source) Unspecified osteoarthritis, unspecified site; 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: [UNSPECIFIED OSTEOARTHRITIS UNS SITE] Onset: 03-11-2023 Chronic Other 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 (1 source) 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; 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: [RESIDENTIAL CURRENT USE OF ASPIRIN] Onset: 03-11-2023 Episodic Other aftercare (1 source) Other fci (current) drug therapy; 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: [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] Onset: 03-11-2023 Episodic Other hereditary and degenerative nervous system conditions (1 source) Extrapyramidal and movement disorder, unspecified; 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: [EXTRAPYRAMIDAL MOVEMNT DISORDER UNS] Onset: 10-04-2022 Chronic Other non-epithelial cancer of skin (1 source) Personal history of other malignant neoplasm of skin; 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: [PERSONAL HX OTH MALIG NEOPLASM SKIN] Onset: 03-11-2023 Episodic Residual codes; unclassified (1 source) Acquired absence of both cervix and uterus; 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: [ACQUIRED ABSENCE BOTH CERVIX AND UTERUS] Onset: 03-11-2023 Episodic Unclassified (2 sources) CONTACT W/AND (SUSP) EXPOS COVID-19; 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: [CONTACT W/AND (SUSP) EXPOS COVID-19] Onset: 06-26-2022 Unclassified (1 source) COUGH, UNSPECIFIED; 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: [COUGH, UNSPECIFIED] Onset: 06-26-2022 Viral infection (1 source) COVID-19; 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: [COVID-19] Onset: 06-26-2022 Past or Other Problems Problem Classification Problem Date Documented Da te Episodic/Chronic Deficiency and other anemia (1 source) Anemia, unspecified; 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: [ANEMIA UNSPECIFIED] Onset: 10-04-2022 Episodic Diabetes mellitus without complication (1 source) Other abnormal glucose; 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: [OTHER ABNORMAL GLUCOSE] Onset: 10-04-2022 Episodic Other circulatory disease (1 source) Other specified symptoms and signs involving the circulatory and respiratory systems; 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: [OTH SPEC SX SIGNS INVLV CIRC RS] Onset: 06-26-2022 Episodic Other gastrointestinal disorders (4 sources) Constipation, unspecified; 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: [CONSTIPATION UNSPECIFIED] Onset: 09-29-2022 Episodic Unclassified (1 source) CONTACT W/AND (SUSP) EXPOS COVID-19; 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: [CONTACT W/AND (SUSP) EXPOS COVID-19] Onset: 06-25-2022 Results Test Name Value Interpretation Reference Range Facility CBC AUTO DIFFon 03-10-2023 BASO # 0.0 103/ul Normal 0.0-0.1 [facility] Comment on above: Performed By: #### A 1C #### [facility] Laboratory [address] [address] [address] Salinas Tsang Basophils/100 WBC (Bld) 0.3 % Normal 0.2-2.0 [facility] Comment on above: Performed By: #### A 1C #### [facility] [address] [address] [address] Salians Tsang EO # 0.1 103/ul Normal 0.0-0.7 [facility] Comment on above: Performed By: #### A 1C #### [facility] Laboratory [address] [address] [address] Salinas Tsang Eosinophils/100 WBC (Bld) 1.7 % Normal 0.9-7.0 [facility] Comment on above: Performed By: #### A 1C #### [facility] Laboratory [address] [address] [address] Salinas Tsang Erythrocyte distribution width (RBC) [Ratio] 12.4 % Normal 11.0-15.0 [facility] Comment on above: Performed By: #### A 1C #### [facility] Laboratory [address] [place] [address] Dr. Salinas Tsang Hematocrit (Bld) [Volume fraction] 40.3 % Normal 36.0-48.0 [facility] Comment on above: Performed By: #### A 1C #### [facility] Laboratory [address] [place] [address] Dr. Salinas Tsang Hemoglobin (Bld) [Mass/Vol] 13.3 g/dL Normal 12.0-16.0 [facility] Comment on above: Performed By: #### A 1C #### [facility] Laboratory [address] [place] [address] Dr. Salinas Tsang IG # 0.01 10e3/ul Normal 0.00-0.03 [facility] Comment on above: Performed By: #### A 1C #### [facility] Laboratory [address] [place] [address] Dr. Salinas Tsang IG % 0.1 % Normal 0.0-0.5 [facility] Comment on above: Performed By: #### A 1C #### [facility] Laboratory [address] [place] [address] Dr. Salinas Tsang LYMPH # 1.9 103/ul Normal 1.2-3.8 [facility] Comment on above: Performed By: #### A 1C #### [facility] Laboratory [address] [place] [address] Dr. Salinas Tsang Lymphocytes/100 WBC (Bld) 27.4 % Normal 20.5-60.0 [facility] Comment on above: Performed By: #### A 1C #### [facility] [address] [place] [address] Dr. Salinas Tsang MANUAL DIFF REQ NO Normal [facility] Comment on above: Performed By: #### A 1C #### [facility] [address] [place] [address] Dr. Salinas Tsang MCH (RBC) [Entitic mass] 31.2 pg Normal 26.7-34.0 [facility] Comment on above: Performed By: #### A 1C #### [facility] [address] [place] [address] Dr. Salinas Tsang MCHC (RBC) [Mass/Vol] 33.0 g/dL Normal 29.9-35.2 [facility] Comment on above: Performed By: #### A 1C #### [facility] Laboratory [address] [place] [address] Dr. Salinas Tsang MCV (RBC) [Entitic vol] 94.6 fL Normal 81.0-99.0 [facility] Comment on above: Performed By: #### A 1C #### [facility] Laboratory [address] [place] [address] Dr. Salinas Tsang MONO # 0.8 103/ul Normal 0.3-0.8 [facility] Comment on above: Performed By: #### A 1C #### [facility] Laboratory [address] [place] [address] Dr. Salinas Tsang Monocytes/100 WBC (Bld) 12.1 % Critically high 1.7-12.0 [facility] Comment on above: Performed By: #### A 1C #### [facility] Laboratory [address] [place] [address] Dr. Salinas Tsang NEUT # 4.0 103/ul Normal 1.4-6.5 [facility] Comment on above: Performed By: #### A 1C #### [facility] Laboratory [address] [place] [address] Dr. Salinas Tsang Neutrophils/100 WBC (Bld) 58.4 % Normal 43.0-75.0 [facility] Comment on above: Performed By: #### A 1C #### [facility] Laboratory [address] [place] [address] Dr. Salinas Tsang Platelet mean volume (Bld) [Entitic vol] 9.8 fL Normal 9.5-13.5 [facility] Comment on above: Performed By: #### A 1C #### [facility] Laboratory [address] [place] [address] Dr. Salinas Tsang PLT 205 103/ul Normal 150-450 [facility] Comment on above: Performed By: #### A 1C #### [facility] [address] [place] [address] Dr. Salinas Tsang RBC 4.26 106/ul Normal 4.20-5.40 [facility] Comment on above: Performed By: #### A 1C #### [facility] [address] [place] [address] Dr. Salinas Tsang WBC 6.9 103/ul Normal 4.0-11.0 [facility] Comment on above: Performed By: #### A 1C #### [facility] [address] [place] [address] Dr. Salinas Tsang PROF 14(COMP METB)on 023 Albumin [Mass/Vol] 3.2 g/dL Critically low 3.4-5.0 e [facility] Comment on above: Performed By: #### C HELENA HSTROPN #### [facility] Laboratory [address] [place] [address] Dr. Salinas Tsang Albumin/Globulin [Mass ratio] 0.9 {ratio} Normal [facility] Comment on above: Performed By: #### C HELENA HSTROPN #### [facility] [address] [place] [address] Dr. Salinas Tsang ALP [Catalytic activity/Vol] 75 U/L Normal 46-116 [facility] Comment on above: Performed By: #### C HELENA HSTROPN #### [facility] [address] [place] [address] Dr. Salinas Tsang ALT [Catalytic activity/Vol] 19 U/L Normal 14-59 [facility] Comment on above: Performed By: #### C HELENA HSTROPN #### [facility] [address] [place] [address] Dr. Salinas Tsang Anion gap [Moles/Vol] 12.2 mmol/L Normal [facility] Comment on above: Performed By: #### C HELENA, HSTROPN #### [facility] [address] [place] [address] Dr. Salinas Tsang AST [Catalytic activity/Vol] 23 U/L Normal 15-37 [facility] Comment on above: Performed By: #### C HELENA, HSTROPN #### [facility] [address] [address] [address] Salinas Tsang Bilirubin [Mass/Vol] 0.2 mg/dL Normal 0.2-1.0 [facility] Comment on above: Performed By: #### C MP, HSTROPN #### [facility] [address] [place] [address] Dr. Salinas Tsang Calcium [Mass/Vol] 9.2 mg/dL Normal 8.5-10.1 [facility] Comment on above: Performed By: #### C MP, HSTROPN #### [facility] [address] [place] [address] Dr. Salinas Tsang Chloride [Moles/Vol] 106 mmol/L Normal 98-107 [facility] Comment on above: Performed By: #### C MP, HSTROPN #### [facility] [address] [place] [address] Dr. Salinas Tsang CO2 [Moles/Vol] 27.8 mmol/L Normal 21.0-32.0 [facility] Comment on above: Performed By: #### C MP, HSTROPN #### [facility] [address] [place] [address] Dr. Salinas Tsang Creatinine [Mass/Vol] 0.71 mg/dL Normal 0.55-1.02 [facility] Comment on above: Performed By: #### C MP, HSTROPN #### [facility] [address] [place] [address] Dr. Salinas Tsang EGFR-AF SLOVAK >60 Normal >=60 [facility] Comment on above: Performed By: #### C MP, HSTROPN #### [facility] [address] [place] [address] Dr. Salinas Tsang EGFR-NON AF SLOVAK >60 Normal >=60 [facility] Comment on above: Performed By: #### C MP, HSTROPN #### [facility] [address] [place] [address] Dr. Salinas Tsang Globulin (S) [Mass/Vol] 3.5 g/dL Normal [facility] Comment on above: Performed By: #### C MP, HSTROPN #### [facility] [address] [address] [address] Salinas Tsang Glucose [Mass/Vol] 92 mg/dL Normal 74-106 [facility] Comment on above: Performed By: #### C MP, HSTROPN #### [facility] [address] [place] [address] Dr. Salinas Tsang Potassium [Moles/Vol] 4.0 mmol/L Normal 3.5-5.1 [facility] Comment on above: Performed By: #### C MP, HSTROPN #### [facility] [address] [place] [address] Dr. Salinas Tasng Protein [Mass/Vol] 6.7 g/dL Normal 6.4-8.2 [facility] Comment on above: Performed By: #### C MP, HSTROPN #### [facility] [address] [place] [address] Dr. Salinas Tsang Sodium [Moles/Vol] 142 mmol/L Normal 136-145 [facility] Comment on above: Performed By: #### C MP, HSTROPN #### [facility] [address] [place] [address] Dr. Salinas Tsang Urea nitrogen [Mass/Vol] 17.0 mg/dL Normal 7.0-18.0 [facility] Comment on above: Performed By: #### C MP, HSTROPN #### [facility] [address] [place] [address] Dr. Salinas Tsang Urea nitrogen/Creatinine [Mass ratio] 23.9 mg/mg Normal [facility] Comment on above: Performed By: #### C MP, HSTROPN #### [facility] [address] [place] [address] Dr. Salinas Tsang PROTIMEon 03-10-2023 INR Coag (PPP) [Relative time] 0.99 {INR} Normal [facility] Comment on above: Performed By: #### P TT, PT #### [facility] [address] [place] [address] Dr. Salinas Tsang INR GUIDELINES SEE BELOW Normal [facility] Comment on above: Result Comment: KARIN RED INR: 2.0 - 3.0 CONDITIONS NOT LISTED BELOW 2.5 - 3.5 FOR PROSTHETIC HEART VALVE REPLACEMENT 2.5 - 3.5 RECURRENT THROMBOSIS Performed By: #### P TT, PT #### [facility] [address] [place] [address] Dr. Salinas Tsang PT Coag (PPP) [Time] 10.5 s Normal 9.0-11.6 [facility] Comment on above: Performed By: #### P TT, PT #### [facility] [address] [place] [address] Dr. Salinas Tsang PTTon 03-10-2023 aPTT Coag (Bld) [Time] 23.1 s Normal 22.3-36.2 [facility] Comment on above: Performed By: #### A 1C #### [facility] [address] [place] [address] Dr. Salinas Tsang TROPONIN, HIGH SENSITIVITYon 03-10-2023 HSTROP 7.0 pg/mL Normal 4.0-51.3 [facility] Comment on above: Result Comment: CUT- OFF POINTS HAVE BEEN ESTABLISHED BASED ON THE FOURTH UNIVERSAL DEFINITIONS OF MYOCARDIAL INFARCTION. THE UPPER REFERENCE LIMIT (URL) OF TROPONIN, DEFINED THE 99TH PERCENTILE OF cTnI DISTRIBUTION IN A REFERENCE POPULATION, HAS BEEN CONFIRMED THE DECISION THRESHOLD FOR [place] DIAGNOSIS. Performed By: #### H STROPN #### [facility] [address] [place] [address] Dr. Salinas Tsang HSTROP 6.5 pg/mL Normal 4.0-51.3 [facility] Comment on above: Result Comment: CUT- OFF POINTS HAVE BEEN ESTABLISHED BASED ON THE FOURTH UNIVERSAL DEFINITIONS OF MYOCARDIAL INFARCTION. THE UPPER REFERENCE LIMIT (URL) OF TROPONIN, DEFINED THE 99TH PERCENTILE OF cTnI DISTRIBUTION IN A REFERENCE POPULATION, HAS BEEN CONFIRMED THE DECISION THRESHOLD FOR [place] DIAGNOSIS. Performed By: #### C MP, HSTROPN #### [facility] [address] [place] [address] Dr. Salinas Tsang XR CHEST 1 Von 03-10-2023 XR CHEST 1 V EXAMINATION: XR CHEST 1 V HISTORY: CHEST PAIN, UNSPECIFIED; acute lower left anterior rib pain COMPARISON: XR abdomen with PA chest 08/30/2022 FINDINGS: LUNGS: No significant pulmonary parenchymal abnormalities. VASCULATURE: No increased pulmonary vasculature. PLEURA: No pneumothorax, effusion, or pleural thickening. CARDIAC: No cardiomegaly or cardiac silhouette abnormality. MEDIASTINUM: No visible mass or adenopathy. BONES: No fracture or visible bone lesion. OTHER: Negative. IMPRESSION: 1. Normal chest. Electronically authenticated by: IVY PASCUAL Date: 2023-03-10 09:59 Normal [facility] INSULINon 09-30-2022 Insulin 22.0 uIU/mL Normal 2.6-24.9 [facility] Comment on above: Performed By: #### I NSULIN #### [facility] Laboratory [address] [place] [address] Dr. Salinas Tsang BNPon 09-29-2022 Natriuretic peptide B (Bld) [Mass/Vol] 96.0 pg/mL Normal <=1,800.0 [facility] Comment on above: Performed By: #### A 1C #### [facility] Laboratory [address] [place] [address] Dr. Salinas Tsang CBC AUTO DIFFon 09-29-2022 BASO # 0.0 103/ul Normal 0.0-0.1 [facility] Comment on above: Performed By: #### C BC #### [facility] Laboratory [address] [place] [address] Dr. Salinas Tsang Basophils/100 WBC (Bld) 0.1 % Critically low 0.2-2.0 [facility] Comment on above: Performed By: #### C BC #### [facility] Laboratory [address] [place] [address] Dr. Salinas Tsang EO # 0.2 103/ul Normal 0.0-0.7 [facility] Comment on above: Performed By: #### C BC #### [facility] Laboratory [address] [place] [address] Dr. Salinas Tsang Eosinophils/100 WBC (Bld) 2.1 % Normal 0.9-7.0 [facility] Comment on above: Performed By: #### C BC #### [facility] [address] [place] [address] Dr. Salinas Tsang Erythrocyte distribution width (RBC) [Ratio] 13.1 % Normal 11.0-15.0 [facility] Comment on above: Performed By: #### C BC #### [facility] [address] [place] [address] Dr. Salinas Tsang Hematocrit (Bld) [Volume fraction] 43.6 % Normal 36.0-48.0 [facility] Comment on above: Performed By: #### C BC #### [facility] [address] [place] [address] Dr. Salinas Tsang Hemoglobin (Bld) [Mass/Vol] 14.2 g/dL Normal 12.0-16.0 [facility] Comment on above: Performed By: #### C BC #### [facility] [address] [place] [address] Dr. Salinas Tsang IG # 0.02 10e3/ul Normal 0.00-0.03 [facility] Comment on above: Performed By: #### C BC #### [facility] [address] [place] [address] Dr. Salinas Tsang IG % 0.3 % Normal 0.0-0.5 [facility] Comment on above: Performed By: #### C BC #### [facility] [address] [place] [address] Dr. Salinas Tsang LYMPH # 2.6 103/ul Normal 1.2-3.8 [facility] Comment on above: Performed By: #### C BC #### [facility] [address] [place] [address] Dr. Salinas Tsang Lymphocytes/100 WBC (Bld) 36.8 % Normal 20.5-60.0 [facility] Comment on above: Performed By: #### C BC #### [facility] [address] [place] [address] Dr. Salinas Tsang MANUAL DIFF REQ NO Normal [facility] Comment on above: Performed By: #### C BC #### [facility] [address] [place] [address] Dr. Salinas Tsang MCH (RBC) [Entitic mass] 30.4 pg Normal 26.7-34.0 [facility] Comment on above: Performed By: #### C BC #### [facility] [address] [place] [address] Dr. Salinas Tsang MCHC (RBC) [Mass/Vol] 32.6 g/dL Normal 29.9-35.2 [facility] Comment on above: Performed By: #### C BC #### [facility] [address] [place] [address] Dr. Salinas Tsang MCV (RBC) [Entitic vol] 93.4 fL Normal 81.0-99.0 [facility] Comment on above: Performed By: #### C BC #### [facility] [address] [place] [address] Dr. Salinas Tsang MONO # 0.6 103/ul Normal 0.3-0.8 [facility] Comment on above: Performed By: #### C BC #### [facility] [address] [place] [address] Dr. Salinas Tsang Monocytes/100 WBC (Bld) 8.8 % Normal 1.7-12.0 [facility] Comment on above: Performed By: #### C BC #### [facility] [address] [place] [address] Dr. Salinas Tsang NEUT # 3.7 103/ul Normal 1.4-6.5 [facility] Comment on above: Performed By: #### C BC #### [facility] [address] [place] [address] Dr. Salinas Tsang Neutrophils/100 WBC (Bld) 51.9 % Normal 43.0-75.0 [facility] Comment on above: Performed By: #### C BC #### [facility] [address] [place] [address] Dr. Salinas Tsang Platelet mean volume (Bld) [Entitic vol] 9.5 fL Normal 9.5-13.5 [facility] Comment on above: Performed By: #### C BC #### [facility] [address] [address] [address] Salinas Tsang PLT 194 103/ul Normal 150-450 [facility] Comment on above: Performed By: #### C BC #### [facility] [address] [address] [address] Salinas Tsang RBC 4.67 106/ul Normal 4.20-5.40 [facility] Comment on above: Performed By: #### C BC #### [facility] [address] [address] [address] Salinas Tsang WBC 7.1 103/ul Normal 4.0-11.0 [facility] Comment on above: Performed By: #### C BC #### [facility] [address] [place] [address] Dr. Salinas Tsnag FREE THYROXINE INDEX T7on FTI 2.28 Normal 1.30-4.50 [facility] Comment on above: Performed By: #### A 1C #### [facility] [address] [place] [address] Dr. Salinas Tsang T3U 34.0 % Normal 30.0-39.0 [facility] Comment on above: Performed By: #### A 1C #### [facility] [address] [place] [address] Dr. Salinas Tsang T4 [Mass/Vol] 6.70 ug/dL Normal 4.80-13.90 [facility] Comment on above: Performed By: #### A 1C #### [facility] [address] [place] [address] Dr. Salinas Tsang GLYCOHEMOGLOBIN A1Con 2021 ADA RECOMMENDATION SEE BELOW Normal [facility] Comment on above: Result Comment: ADA RECOMMENDED LIMIT 4.0 - 6.0 ADA THERAPEUTIC TARGET < 7.0 ACTION SUGGESTED > 7.0 Performed By: #### A 1C #### [facility] [address] [place] [address] Dr. Salinas Tsang Glucose [Mass/Vol] 105 mg/dL Normal [facility] Comment on above: Performed By: #### A 1C #### [facility] [address] [address] [address] Salinas Tsang HbA1c (Bld) [Mass fraction] 5.3 % Normal 4.5-6.2 [facility] Comment on above: Performed By: #### A 1C #### [facility] [address] [address] [address] Salinas Tsang IRONon 09-29-2022 Iron [Mass/Vol] 103.0 ug/dL Normal 50.0-170.0 [facility] Comment on above: Performed By: #### A 1C #### [facility] [address] [address] [address] Salinas Tsang LIPID PROFILEon 09-29-2022 CHOL-HDL RATIO NORM SEE BELOW Normal [facility] Comment on above: Result Comment: 3.3 - 4.4 LOW RISK 4.4 - 7.1 AVERAGE RISK 7.1 - 11.0 MODERATE RISK >11.0 HIGH RISK Performed By: #### A 1C #### [facility] [address] [address] [address] Salinas Tsang Cholesterol [Mass/Vol] 143 mg/dL Normal <=200 [facility] Comment on above: Performed By: #### A 1C #### [facility] [address] [address] [address] Salinas Tsang Cholesterol in HDL [Mass/Vol] 39 mg/dL Critically low 40-60 [facility] Comment on above: Performed By: #### A 1C #### [facility] [address] [address] [address] Salinas Tsang Cholesterol in LDL [Mass/Vol] 75.4 mg/dL Normal [facility] Comment on above: Performed By: #### A 1C #### [facility] [address] [address] [address] Salinas Tsang Cholesterol.total/Ch olesterol in HDL [Mass ratio] 3.7 {ratio} Normal [facility] Comment on above: Performed By: #### A 1C #### [facility] [address] [address] [address] Salinas Tsang HDL NORMAL > or = 60 mg/dl - LOW CARDIOVASCULAR RISK <40 mg/dl - HIGH CARDIOVASCULAR RISK Normal [facility] Comment on above: Performed By: #### A 1C #### [facility] [address] [place] [address] Dr. Salinas Tsang LDL CALC NORMAL SEE BELOW Normal [facility] Comment on above: Result Comment: <100 mg/dl OPTIMAL 100 - 129 mg/dl NEAR OR ABOVE OPTIMAL 130 - 159 mg/dl BORDERLINE HIGH 160 - 189 mg/dl HIGH >190 mg/dl VERY HIGH Performed By: #### A 1C #### [facility] [address] [place] [address] Dr. Salinas Tsang Triglyceride [Mass/Vol] 143 mg/dL Normal <=150 [facility] Comment on above: Performed By: #### A 1C #### [facility] [address] [place] [address] Dr. Salinas Tsang VLDL CALC 28.6 mg/dL Normal [facility] Comment on above: Performed By: #### A 1C #### [facility] [address] [place] [address] Dr. Salinas Tsang PROF 14(COMP METB)on 022 Albumin [Mass/Vol] 3.5 g/dL Normal 3.4-5.0 [facility] Comment on above: Performed By: #### A 1C #### [facility] [address] [place] [address] Dr. Salinas Tsang Albumin/Globulin [Mass ratio] 1.0 {ratio} Normal [facility] Comment on above: Performed By: #### A 1C #### [facility] [address] [place] [address] Dr. Salinas Tsang ALP [Catalytic activity/Vol] 64 U/L Normal 46-116 [facility] Comment on above: Performed By: #### A 1C #### [facility] [address] [place] [address] Dr. Salinas Tsang ALT [Catalytic activity/Vol] 21 U/L Normal 14-59 [facility] Comment on above: Performed By: #### A 1C #### [facility] [address] [place] [address] Dr. Salinas Tsang Anion gap [Moles/Vol] 11.3 mmol/L Normal [facility] Comment on above: Performed By: #### A 1C #### [facility] [address] [place] [address] Dr. Salinas Tsang AST [Catalytic activity/Vol] 22 U/L Normal 15-37 [facility] Comment on above: Performed By: #### A 1C #### [facility] [address] [address] [address] Salinas Tsang Bilirubin [Mass/Vol] 0.4 mg/dL Normal 0.2-1.0 [facility] Comment on above: Performed By: #### A 1C #### [facility] [address] [place] [address] Dr. Salinas Tsang Calcium [Mass/Vol] 9.0 mg/dL Normal 8.5-10.1 [facility] Comment on above: Performed By: #### A 1C #### [facility] [address] [place] [address] Dr. Salinas Tsang Chloride [Moles/Vol] 106 mmol/L Normal 98-107 [facility] Comment on above: Performed By: #### A 1C #### [facility] [address] [place] [address] Dr. Salinas Tsang CO2 [Moles/Vol] 29.6 mmol/L Normal 21.0-32.0 [facility] Comment on above: Performed By: #### A 1C #### [facility] [address] [place] [address] Dr. Salinas Tsang Creatinine [Mass/Vol] 0.70 mg/dL Normal 0.55-1.02 [facility] Comment on above: Performed By: #### A 1C #### [facility] [address] [place] [address] Dr. Salinas Tsang EGFR-AF SLOVAK >60 Normal >=60 [facility] Comment on above: Performed By: #### A 1C #### [facility] [address] [place] [address] Dr. Salinas Tsang EGFR-NON AF [place]OVAK >60 Normal >=60 [facility] Comment on above: Performed By: #### A 1C #### [facility] [address] [address] [address] Salinas Tsang Globulin (S) [Mass/Vol] 3.4 g/dL Normal [facility] Comment on above: Performed By: #### A 1C #### [facility] [address] [address] [address] Salinas Tsang Glucose [Mass/Vol] 98 mg/dL Normal 74-106 [facility] Comment on above: Performed By: #### A 1C #### [facility] [address] [address] [address] Salinas Tsang Potassium [Moles/Vol] 3.9 mmol/L Normal 3.5-5.1 [facility] Comment on above: Performed By: #### A 1C #### [facility] [address] [place] [address] Dr. Salinas Tsang Protein [Mass/Vol] 6.9 g/dL Normal 6.4-8.2 [facility] Comment on above: Performed By: #### A 1C #### [facility] [address] [address] [address] Salinas Tsang Sodium [Moles/Vol] 143 mmol/L Normal 136-145 [facility] Comment on above: Performed By: #### A 1C #### [facility] [address] [place] [address] Dr. Salinas Tsang Urea nitrogen [Mass/Vol] 16.0 mg/dL Normal 7.0-18.0 [facility] Comment on above: Performed By: #### A 1C #### [facility] [address] [place] [address] Dr. Salinas Tsang Urea nitrogen/Creatinine [Mass ratio] 22.9 mg/mg Normal [facility] Comment on above: Performed By: #### A 1C #### [facility] [address] [place] [address] Dr. Salinas Tsang TSHon 09-29-2022 TSH 1.484 uIU/mL Normal 0.358-3.740 [facility] Comment on above: Performed By: #### A 1C #### [facility] [address] [place] [address] Dr. Salinas Tsang VITAMIN B12on 09-29-2022 Cobalamin (Vitamin B12) [Mass/Vol] 488.0 pg/mL Normal 193.0-986.0 [facility] Comment on above: Performed By: #### A 1C #### [facility] [address] [place] [address] Dr. Salinas Tsang VITAMIN D 25 OHon 09-29-2022 VIT D 25-OH 86.8 ng/mL Normal [facility] Comment on above: Performed By: #### A 1C #### [facility] [address] [place] [address] Dr. Salinas Tsang VIT D RANGES SEE BELOW Normal [facility] Comment on above: Result Comment: <20 ng/mL Vit D deficient 20 - <30 ng/mL Vit D insufficient 30 - 100 ng/mL Vit D sufficient >100 ng/mL Potential Toxicity Performed By: #### A 1C #### [facility] [address] [place] [address] Dr. Salinas Tsang XR ABD FLAT UP_PA Dorinda 08-30 XR ABD FLAT UP_PA CH EXAM: XR ABD FLAT UP_PA CH HISTORY: CONSTIPATION, UNSPECIFIED COMPARISON: None. TECHNIQUE: PA chest and 3 views of the abdomen FINDINGS: IMPRESSION: The lung parenchyma is free of consolidation or infiltrate. No pneumothorax or pleural effusion. The cardiac, mediastinal and hilar contours are normal. Bowel gas pattern is nonobstructed. Stool within the rectum and colon. No free intraperitoneal air or visualized intra-abdominal calcification. No visualized acute osseous abnormalities. Surgical clips within the deep pelvis. Electronically authenticated by: ABRAHAM ARNETT Date: 2022-08-30 17:04 Normal [facility] Covid-19 PCR (CVDTBH)on 05-28 SARS-CoV-2 (COVID-19) RNA FRANKO+probe Ql (Unsp spec) Detected Critically abnormal NOT DETECTED [facility] Comment on above: Result Comment: This test is not yet approved or cleared by the [place] FDA. When there are no FDA-approved or cleared tests available, and other criteria are met, FDA can make tests available under an emergency access mechanism called an Emergency Use Authorization (EUA). The EUA for this test is supported by the [employer] [place] of Health and Human Service's (HHS's) declaration that circumstances exist to justify the emergency use of in vitro diagnostics for the detection and/or diagnosis of the virus that causes COVID-19. This EUA will remain in effect (meaning this test can be used) for the duration of the COVID-19 declaration justifying emergency of IVDs, unless it is terminated or revoked by FDA (after which the test may no longer be used). Performed By: #### C [facility] #### [facility] [address] [place] [address] Dr. Salinas Tsang Encounters Encounter Date Encounter Type Care Provider Facility Start: 06-09-2024 End: 06-09-2024 ambulatory JAS KUMAR Not Available Start: 03-03-2024 End: 03-03-2024 ambulatory JAS KUMAR Not Available Start: 03-10-2023 End: 03-10-[address] ANGÉLICA SIMMS . Facility:[facility] Start: 09-29-2022 End: 09-30-[address] ANGÉLICA SIMMS . Facility[facility] Start: 08-30-2022 End: 08-30-2022 ambulatory MONTY MERCADO . Facility:[facility] Start: 08-05-[address] ANGÉLICA SIMMS . Facili ty:[facility] Start: 06-25-2022 End: 06-25-[address] ANGÉLICA SIMMS . Facility:[facility] Payers Date Payer Category Payer Medicare [id number] 1957 Self-pay 1935 Unknown [id number] 2.16.84 [id number] 1935 Unknown [id number] 2.16.84 [id number] 1935 Unknown [id number] 2.16.84 [id number] 1935 Unknown [id number] 2.16.84 [id number] 1935 Unknown [id number] 2.16.84 [id number] 1935 Unknown [id number] 2.16.84 [id number] 1935 Unknown [id number] 2.16.84 [id number] Summary Purpose Family History No Family History Records FoundNo Family History Records Found Advance Directives No Advanced Directives Records FoundNo Advanced Directives Records Found Additional Source Comments INFORMATION SOURCE (unrecogn ized section and content) DATE CREATED AUTHOR 03/11/2023 [facility] DATE CREATED AUTHOR 'S [facility] [place] [facility] 06/11/2024 [facility] FOR RECORDS PERTAINING TO PATIENTS WHO ARE OR HAVE BEEN ENROLLED IN A CHEMICAL DEPENDENCY/SUBSTANCEABUSE PROGRAM, SOME INFORMATION MAY BE OMITTED. This clinical summary was aggregated from multiple sources. Caution should be exercised in using it in the provision of clinical care. This summary normalizes information from multiple sources, and as a consequence, information in this document may materially change the coding, format and clinical context of patient data. In addition, data may be omitted in some cases. CLINICAL DECISIONS SHOULD BE BASED ON THE PRIMARY CLINICAL RECORDS. [employer] provides no warranty or guarantee of the accuracy or completeness of information in this document.
== END 2024-06-23 12:31 | disposition home or self-care (01) ==
LOC: VC 12:30
DX: I73.9 Peripheral vascular disease, unspecified (principal)
CPT/HCPCS: 93923

== ENCOUNTER 2024-09-06 08:21 | Outpatient (OUT) | payer MEDICARE, SELFPAY ==
--- NOTE | 2024-09-06 | ECG_ITS ---
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
[2024-09-06 09:08] LABS: Basophils Percent Auto 0.3 % (0.2-2.0); Eosinophils Absolute Auto 0.1 10^3/uL (0.0-0.7); Hematocrit 43.5 % (36.0-48.0); Hemoglobin 14.1 g/dL (12.0-16.0); Immature Granulocytes Abs Auto 0.02 10^3/uL (0.00-0.03); Immature Granulocytes Pct Auto 0.3 % (0.0-0.5); Lymphocytes Absolute Auto 2.6 10^3/uL (1.2-3.8); Lymphocytes Percent Auto 36.1 % (20.5-60.0); Mean Corpuscular HGB Conc 32.4 g/dL (29.9-35.2); Mean Corpuscular Hemoglobin 31.4 pg (26.7-34.0); Mean Corpuscular Volume 96.9 fL (81.0-99.0); Mean Platelet Volume 10.2 fL (9.5-13.5); Monocytes Absolute Auto 0.7 10^3/uL (0.3-0.8); Monocytes Percent Auto 9.9 % (1.7-12.0); Neutrophils Absolute Auto 3.7 10^3/uL (1.4-6.5); Neutrophils Percent Auto 51.4 % (43.0-75.0); Platelet Count 188 10^3/uL (150-450); Red Blood Count 4.49 10^6/uL (4.20-5.40); Red Cell Distribution Width 12.1 % (11.0-15.0); White Blood Count 7.2 10^3/uL (4.0-11.0)
[2024-09-06 09:48] LABS: Anion Gap 14.6; BUN Creatinine Ratio 16.5; Calcium 9.3 mg/dL (8.5-10.1); Carbon Dioxide 28.5 mmol/L (21.0-32.0); Chloride 107 mmol/L (98-107); Estimated GFR (African America >60 (>=60 mL/min/1.73m^2); Estimated GFR (Non-African Ame >60 (>=60 mL/min/1.73m^2); Glucose 107 mg/dL (74-106); Potassium 4.1 mmol/L (3.5-5.1); Sodium 146 mmol/L (136-145)
== END 2024-09-06 08:22 | disposition home or self-care (01) ==
DX: Z01.810 Encounter for preprocedural cardiovascular examination (principal); Z01.812 Encounter for preprocedural laboratory examination; Z01.818 Encounter for other preprocedural examination
CPT/HCPCS: 36415; 80048; 85025; 93005

== ENCOUNTER 2024-09-15 03:19 | Emergency (ER) | payer MEDICARE, SELFPAY ==
[2024-09-15 03:32] VITALS: BP 110/70; PULSE 85; TEMP 36.8; O2SAT 97; BMI 31.2
--- NOTE | 2024-09-15 03:48 | ED_ITS ---
HPI - Nausea/Vomiting/Diarrhea General Chief complaint: Nausea/Vomiting/Diarrhea Stated complaint: diarrhea Time Seen by Provider: 09/15/24 03:26 Source: patient Mode of arrival: Wheelchair Limitations: no limitations History of Present Illness HPI Narrative: 89-year-old female presents for diarrhea. She has had it for a week and is having it 3-4 times a day. No blood and no vomiting or nausea. No fever. She has intermittent cramps in her abdomen. No recent hospitalizations or antibiotic use. Related Data Home Medications ?Medication ?Instructions ?Recorded ?Confirmed aspirin 81 mg tablet,delayed 81 mg PO DAILY 06/30/23 06/30/23 release (Adult Aspirin Regimen) linaclotide 72 mcg capsule 72 mcg PO DAILY 06/30/23 06/30/23 (Linzess) lisinopril 10 mg tablet 10 mg PO DAILY 06/30/23 06/30/23 omeprazole 40 mg capsule,delayed 40 mg PO DAILY 06/30/23 06/30/23 release ropinirole 1 mg tablet 1 mg PO DAILY 06/30/23 06/30/23 simvastatin 20 mg tablet 20 mg PO DAILY 06/30/23 06/30/23 Previous Rx's ?Medication ?Instructions ?Recorded prednisone 20 mg tablet 20 mg PO TID #15 tabs 08/10/23 Allergies Allergy/AdvReac Type Severity Reaction Status Date / Time No Known Drug Allergies Allergy Verified 09/15/24 03:32 Review of Systems ROS Narrative A ten point review of systems is negative except as noted above. 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 ?R26.2 - Difficulty in walking, not elsewhere classified (ICD-10) Surgical History (Updated 08/10/23 @ 04:38 by Warren Banegas) H/O: hysterectomy ?Z90.710 - Acquired absence of both cervix and uterus (ICD-10) Family History (Updated 08/10/23 @ 04:41 by Warren Banegas) Sister Family history of CHF (congestive heart failure) Family history of diabetes mellitus Mother Family history of cancer Daughter Family history of stroke Social History (Updated 08/10/23 @ 04:47 by Warren Banegas) Within the past year, how often did you have a drink containing alcohol: never Within the past year, how often did you have six or more drinks on one occasion: never Score interpretation: A score less than 3 is consistent with normal alcohol consumption. 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 Little interest or pleasure in doing things: not at all Feeling down, depressed, or hopeless: not at all Feel stressed/tense/nervous/anxious/difficulty sleeping: not at all Life stressors: recent of family or friend Life stressor details: sister just Due to disability, difficulty making decisions: No Do you think of yourself as: straight/heterosexual Gender Identity: female Exam Narrative Exam Narrative: Nurses note and vital signs reviewed and patient is not hypoxic. General: The patient appears well and in no apparent distress. Patient is resting comfortably on cart. Skin: Warm, dry, no pallor noted. There is no rash noted. Head: Normocephalic, atraumatic Eye: Normal conjunctiva, no drainage Ears, Nose, Mouth, and Throat: oral mucosa is moist. Nares patent. Cardiovascular: Regular Rate and Rhythm Respiratory: Patient is in no distress, no accessory muscle use, lungs are clear to auscultation, no wheezing, rales or rhonchi Back: non-tender GI: Soft and nondistended. Minimal diffuse tenderness on palpation. Musculoskeletal: The patient has no evidence of calf tenderness, no pitting edema, symmetrical pulses noted bilaterally Neurological: A&O, normal speech Psychiatric: Cooperative Constitutional Vital Signs, click to edit/add: Last Vital Signs Temp 98.2 F 09/15/24 03:32 Pulse 85 09/15/24 03:32 Resp 19 09/15/24 03:32 BP 110/70 09/15/24 03:32 Pulse Ox 97 09/15/24 03:32 O2 Del Method Room Air 09/15/24 03:32 Course Vital Signs Vital signs: Vital Signs Temperature 98.2 F 09/15/24 03:32 Pulse Rate 85 09/15/24 03:32 Respiratory Rate 19 09/15/24 03:32 Blood Pressure 110/70 09/15/24 03:32 Pulse Oximetry 97 09/15/24 03:32 Oxygen Delivery Method Room Air 09/15/24 03:32 Temperature 98.2 F 09/15/24 03:32 Pulse Rate 85 09/15/24 03:32 Respiratory Rate 19 09/15/24 03:32 Blood Pressure 110/70 09/15/24 03:32 Pulse Oximetry 97 09/15/24 03:32 Oxygen Delivery Method Room Air 09/15/24 03:32 MDM - Nausea/Vomiting/Diarrhea MDM Narrative Medical decision making narrative: Blood work is essentially normal. She was unable to produce a stool specimen here. She was given an order and a collection cup and she will return it to our lab when she has diarrhea. She is not dehydrated. There is no indication for a dmission to the hospital. Treatment diagnosis and follow-up were discussed with the patient. Differential Diagnosis Differential diagnosis: Likely traveler's diarrhea, food poisoning, gastroenteritis, clostridium difficile infection and dehydration Lab Data Attestation: I reviewed the patient's lab results. Labs: Lab Results 09/15/24 09/15/24 Range/Units 04:17 04:42 WBC 9.3 (4.0-11.0) 10^3/uL RBC 4.54 (4.20-5.40) 10^6/uL Hgb 14.4 (12.0-16.0) g/dL Hct 44.0 (36.0-48.0) % MCV 96.9 (81.0-99.0) fL MCH 31.7 (26.7-34.0) pg MCHC 32.7 (29.9-35.2) g/dL RDW 12.6 (11.0-15.0) % Plt Count 181 (150-450) 10^3/uL MPV 10.4 (9.5-13.5) fL Neut % (Auto) 54.7 (43.0-75.0) % Lymph % (Auto) 32.1 (20.5-60.0) % Canadian % (Auto) 11.6 (1.7-12.0) % Eos % (Auto) 1.0 (0.9-7.0) % Baso % (Auto) 0.3 (0.2-2.0) % Neut # (Auto) 5.1 (1.4-6.5) 10^3/uL Lymph # (Auto) 3.0 (1.2-3.8) 10^3/uL Canadian # (Auto) 1.1 H (0.3-0.8) 10^3/uL Eos # (Auto) 0.1 (0.0-0.7) 10^3/uL Baso # (Auto) 0.0 (0.0-0.1) 10^3/uL Abs Immat Gran (auto) 0.03 (0.00-0.03) 10^3/uL Imm/Tot Granulo (auto) 0.3 (0.0-0.5) % Sodium 144 (136-145) mmol/L Potassium 3.7 (3.5-5.1) mmol/L Chloride 107 (98-107) mmol/L Carbon Dioxide 26.2 (21.0-32.0) mmol/L Anion Gap 14.5 BUN 14.0 (7.0-18.0) mg/dL Creatinine 0.85 (0.55-1.02) mg/dL Est GFR ( Amer) >60 (>=60 mL/min/1.73m^2) Est GFR (Non-Af Amer) >60 (>=60 mL/min/1.73m^2) BUN/Creatinine Ratio 16.5 Glucose 110 H (74-106) mg/dL Calcium 9.1 (8.5-10.1) mg/dL Discharge Plan Discharge Chief Complaint: Nausea/Vomiting/Diarrhea Clinical Impression: Diarrhea Patient Disposition: Home, Self-Care Time of Disposition Decision: 05:47 Condition: Good Mode of Transportation: Private Vehicle Prescriptions / Home Meds: No Action Linzess 72 mcg capsule 72 mcg PO DAILY lisinopril 10 mg tablet 10 mg PO DAILY omeprazole 40 mg capsule,delayed release(DR/EC) 40 mg PO DAILY ropinirole 1 mg tablet 1 mg PO DAILY simvastatin 20 mg tablet 20 mg PO DAILY aspirin [Adult Aspirin Regimen] 81 mg tablet,delayed release (DR/EC) 81 mg PO DAILY prednisone 20 mg tablet 20 mg PO TID Qty: 15 0RF Print Language: Venezuelan Instructions: Acute Diarrhea (ED) Referrals: JAS KUMAR [Primary Care Provider] - 1 week
--- OUTSIDE RECORDS SUMMARY | 2024-09-15 04:12 | XMS_ITS | CCD ---
Author Organization [facility] Team Providers Care Antique Finisher Name Role Phone DEMI ., DR LINDSAY Primary Care Unavailable HOY ., DR LINDSAY Admitting Unavailable HOY ., DR LINDSAY Attending Unavailable HOY ., DR LINDSAY Primary Care Unavailable JABIER, DR SHANIQUE Weber Attending Unavailabl e REINECK, DR SHANIQUE Weber Consulting Unavailabl e JABIER, DR SHANIQUE Weber Admitting Unavailabl e ANKUR, DR IVY Morse Consulting Unavailable ROGELIO ., [...] HOY ., DR LINDSAY Primary Care Unavailable Angélica Simms MD Primary Care Provider [phone] JOAO CHEEMA Attending Unavailable JOAO CHEEMA Attending Unavailable JOAO CHEEMA Attending Unavailable JOAO CHEEMA Attending Unavailable JOAO CHEEMA Attending Unavailable JOAO CHEEMA Attending Unavailable JOAO CHEEMA Referring Unavailable Allergies Allergy Classification Reported Allergen(s) Allergy Type Date of Onset Reaction(s) Facility (1 source) Chocolate Drug allergy (disorder) [facility] (1 source) piperazine Drug Allergy [facility] Medications Current Medications Medication Drug Class(es) Dates Sig (Normalized) Sig (Original) aspirin 81 mg delayed release oral tablet (2 sources) Platelet Aggregation Inhibitor, Nonsteroidal Anti-inflammatory Drug take 1 tablet by mouth once daily aspirin 81 MG EC tablet Take 81 mg by mouth Daily Active calcium carbonate 1500 mg oral tablet (2 sources) take 1 tablet by mouth in the morning calcium carbonate (Super Calcium) 1500 (600 Ca) MG tablet Take 1,500 mg by mouth in the morning and 1,500 mg in the evening. Take with meals. Active omeprazole 40 mg delayed release oral capsule (2 sources) Proton Pump Inhibitor Start: 01-22-2024 omeprazole (PriLOSEC) [address] capsule 01/22/2024 Active simvastatin 20 mg oral tablet (2 sources) HMG-CoA Reductase Inhibitor Start: 01-22-2024 simvastatin (Zocor) 20 MG tablet 01/22/2024 Active Problems Active Problems Problem Classification Problem Date Documented Da te Episodic/Chronic Acquired foot deformities (1 source) Hallux valgus (acquired), left foot; 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: [Hallux valgus (acquired)] 08-25-2024 Chronic Cancer of uterus (1 source) Personal history [...] HEART DISEASE W/HEART FAIL] Onset: 10-04-2022 Chronic Mycoses (1 source) Pain in toe; 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: [Tinea unguium] 08-25-2024 Episodic Nonspecific chest pain (5 sources) Chest pain, unspecified; 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: [CHEST PAIN UNSPECIFIED] Onset: 10-04-2022 Episodic Nutritional deficiencies (1 source) Vitamin D deficiency, unspecified; 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: [VITAMIN D DEFICIENCY UNSPECIFIED] Onset: 10-04-2022 Chronic Osteoarthritis (1 source) Unspecified osteoarthritis, unspecified site; 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: [UNSPECIFIED OSTEOARTHRITIS UNS SITE] Onset: 03-11-2023 Chronic Other acquired deformities (1 source) Contracture of joint of left ankle; 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: [Contracture, left ankle] 08-25-2024 Chronic Other aftercare (1 source) halfway (current) use of aspirin; 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: [TAX PROCESSOR CURRENT USE OF ASPIRIN] Onset: 03-11-2023 Episodic Other aftercare (1 source) Other nursing home (current) drug therapy; 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: [OTH TAX PROCESSOR CURRENT DRUG THERAPY] Onset: 03-11-2023 Episodic Other [...] 03-10-2023 BASO # 0.0 103/ul Normal 0.0-0.1 [facility] Comment on above: Performed By: #### A 1C #### [facility] [address] [place] [address] Dr. Salinas Tsang Basophils/100 WBC (Bld) 0.3 % Normal 0.2-2.0 [facility] Comment on above: Performed By: #### A 1C #### [facility] [address] [place] [address] Dr. Salinas Tsang EO # 0.1 103/ul Normal 0.0-0.7 [facility] Comment on above: Performed By: #### A 1C #### [facility] [address] [place] [address] Dr. Salinas Tsang Eosinophils/100 WBC (Bld) 1.7 % Normal 0.9-7.0 [facility] Comment on above: Performed By: #### A 1C #### [facility] [address] [place] [address] Dr. Salinas Tsang Erythrocyte distribution width (RBC) [Ratio] 12.4 % Normal 11.0-15.0 [facility] Comment on above: Performed By: #### A 1C #### [facility] [address] [place] [address] Dr. Salinas Tsang Hematocrit (Bld) [Volume fraction] 40.3 % Normal 36.0-48.0 [facility] Comment on above: Performed By: #### A 1C #### [facility] [address] [place] [address] Dr. Salinas Tsang Hemoglobin (Bld) [Mass/Vol] 13.3 g/dL Normal 12.0-16.0 [facility] Comment on above: Performed By: #### A 1C #### [facility] [address] [place] [address] Dr. Salinas Tsang IG # 0.01 10e3/ul Normal 0.00-0.03 [facility] Comment on above: Performed By: #### A 1C #### [facility] [address] [place] [address] Dr. Salinas Tsang IG % 0.1 % Normal 0.0-0.5 [facility] Comment on above: Performed By: #### A 1C #### [facility] [address] [place] [address] Dr. Salinas Tsang LYMPH # 1.9 103/ul Normal 1.2-3.8 [facility] Comment on above: Performed By: #### A 1C #### [facility] [address] [place] [address] Dr. Salinas Tsang Lymphocytes/100 WBC (Bld) 27.4 % Normal 20.5-60.0 [facility] Comment on above: Performed By: #### A 1C #### [facility] [address] [place] [address] Dr. Salinas Tsang MANUAL DIFF REQ NO Normal [facility] Comment on above: Performed By: #### A 1C #### [facility] [address] [place] [address] Dr. Salinas Tsang MCH (RBC) [Entitic mass] 31.2 pg Normal 26.7-34.0 [facility] Comment on above: Performed By: #### A 1C #### [facility] [address] [place] [address] Dr. Salinas Tsang MCHC (RBC) [Mass/Vol] 33.0 g/dL Normal 29.9-35.2 [facility] Comment on above: Performed By: #### A 1C #### [facility] [address] [place] [address] Dr. Salinas Tsang MCV (RBC) [Entitic vol] 94.6 fL Normal 81.0-99.0 [facility] Comment on above: Performed By: #### A 1C #### [facility] [address] [place] [address] Dr. Salinas Tsang MONO # 0.8 103/ul Normal 0.3-0.8 [facility] Comment on above: Performed By: #### A 1C #### [facility] [address] [address] [address] Salinas Tsang Monocytes/100 WBC (Bld) 12.1 % Critically high 1.7-12.0 [facility] Comment on above: Performed By: #### A 1C #### [facility] [address] [place] [address] Dr. Salinas Tsang NEUT # 4.0 103/ul Normal 1.4-6.5 [facility] Comment on above: Performed By: #### A 1C #### [facility] [address] [place] [address] Dr. Salinas Tsang Neutrophils/100 WBC (Bld) 58.4 % Normal 43.0-75.0 [facility] Comment on above: Performed By: #### A 1C #### [facility] [address] [place] [address] Dr. Salinas Tsang Platelet mean volume (Bld) [Entitic vol] 9.8 fL Normal 9.5-13.5 [facility] Comment on above: Performed By: #### A 1C #### [facility] [address] [place] [address] Dr. Salinas Tsang PLT 205 103/ul Normal 150-450 [facility] Comment on above: Performed By: #### A 1C #### [facility] [address] [place] [address] Dr. Salinas Tsang RBC 4.26 106/ul Normal 4.20-5.40 [facility] Comment on above: Performed By: #### A 1C #### [facility] [address] [place] [address] Dr. Salinas Tsang WBC 6.9 103/ul Normal 4.0-11.0 [facility] Comment on above: Performed By: #### A 1C #### [facility] [address] [place] [address] Dr. Salinas Tsang PROF 14(COMP METB)on 023 Albumin [Mass/Vol] 3.2 g/dL Critically low 3.4-5.0 [facility] Comment on above: Performed By: #### C MP, HSTROPN #### [facility] [address] [address] [address] Salinas Tsang Albumin/Globulin [Mass ratio] 0.9 {ratio} Normal [facility] Comment on above: Performed By: #### C MP, HSTROPN #### [facility] [address] [address] [address] Salinas Tsang ALP [Catalytic activity/Vol] 75 U/L Normal 46-116 [facility] Comment on above: Performed By: #### C MP, HSTROPN #### [facility] [address] [place] [address] Dr. Salinas Tsang ALT [Catalytic activity/Vol] 19 U/L Normal 14-59 [facility] Comment on above: Performed By: #### C MP, HSTROPN #### [facility] [address] [place] [address] Dr. Salinas Tsang Anion gap [Moles/Vol] 12.2 mmol/L Normal [facility] Comment on above: Performed By: #### C MP, HSTROPN #### [facility] [address] [place] [address] Dr. Salinas Tsang AST [Catalytic activity/Vol] 23 U/L Normal 15-37 [facility] Comment on above: Performed By: #### C MP, HSTROPN #### [facility] [address] [place] [address] Dr. Salinas Tsang Bilirubin [Mass/Vol] 0.2 mg/dL Normal 0.2-1.0 [facility] Comment on above: Performed By: #### C MP, HSTROPN #### [facility] [address] [place] [address] Dr. Salinas Tsang Calcium [Mass/Vol] 9.2 mg/dL Normal 8.5-10.1 [facility] Comment on above: Performed By: #### C MP, HSTROPN #### [facility] [address] [place] [address] Dr. Salinas Tsang Chloride [Moles/Vol] 106 mmol/L Normal 98-107 [facility] Comment on above: Performed By: #### C MP, HSTROPN #### [facility] [address] [address] [address] Salinas Tsang CO2 [Moles/Vol] 27.8 mmol/L Normal 21.0-32.0 [facility] Comment on above: Performed By: #### C HELENA, HSTROPN #### [facility] [address] [address] [address] Salinas Tsang Creatinine [Mass/Vol] 0.71 mg/dL Normal 0.55-1.02 [facility] Comment on above: Performed By: #### C HELENA, HSTROPN #### [facility] [address] [place] [address] Dr. Salinas Tsang EGFR-AF GUAMANIAN >60 Normal >=60 [facility] Comment on above: Performed By: #### C HELENA, HSTROPN #### [facility] [address] [place] [address] Dr. Salinas Tsang EGFR-NON AF GUAMANIAN >60 Normal >=60 [facility] Comment on above: Performed By: #### C HELENA, HSTROPN #### [facility] [address] [place] [address] Dr. Salinas Tsang Globulin (S) [Mass/Vol] 3.5 g/dL Normal [facility] Comment on above: Performed By: #### C HELENA, HSTROPN #### [facility] [address] [address] [address] Salinas Tsang Glucose [Mass/Vol] 92 mg/dL Normal 74-106 [facility] Comment on above: Performed By: #### C HELENA, HSTROPN #### [facility] [address] [address] [address] Salinas Tsang Potassium [Moles/Vol] 4.0 mmol/L Normal 3.5-5.1 [facility] Comment on above: Performed By: #### C HELENA, HSTROPN #### [facility] [address] [place] [address] Dr. Salinas Tsang Protein [Mass/Vol] 6.7 g/dL Normal 6.4-8.[address] [facility] Comment on above: Performed By: #### C MP, HSTROPN #### [facility] [address] [place] [address] Dr. Salinas Tsang Sodium [Moles/Vol] 142 mmol/L Normal 136-[address] [facility] Comment on above: Performed By: #### C MP, HSTROPN #### [facility] [address] [place] [address] Dr. Salinas Tsang Urea nitrogen [Mass/Vol] 17.0 mg/dL Normal 7.0-18.0 [facility] Comment on above: Performed By: #### C MP, HSTROPN #### [facility] [address] [place] [address] Dr. Salinas Tsang Urea nitrogen/Creatinine [Mass ratio] 23.9 mg/mg Normal [facility] Comment on above: Performed By: #### C MP, HSTROPN #### [facility] [address] [place] [address] Dr. Salinas Tsang PROTIMEon 03-10-2023 INR Coag (PPP) [Relative time] 0.99 {INR} Normal [facility] Comment on above: Performed By: #### P TT, PT #### [facility] [address] [place] [address] Dr. Salinas Tsang INR GUIDELINES SEE BELOW Normal [facility] Comment on above: Result Comment: KARIN RED INR: 2.0 - 3.0 CONDITIONS NOT LISTED BELOW 2.5 - 3.5 FOR PROSTHETIC HEART VALVE REPLACEMENT 2.5 - 3.5 RECURRENT THROMBOSIS Performed By: #### P TT, PT #### [facility] [address] [place] [address] Dr. Salinas Tsang PT Coag (PPP) [Time] 10.5 s Normal 9.0-11.6 [facility] Comment on above: Performed By: #### P TT, PT #### [facility] [address] [place] [address] Dr. Salinas Tsang PTTon 03-10-2023 aPTT Coag (Bld) [Time] 23.1 s Normal 22.3-36.2 [facility] Comment on above: Performed By: #### A 1C #### [facility] [address] [address] [address] Salinas Tsang TROPONIN, HIGH SENSITIVITYon 03-10-2023 HSTROP 7.0 pg/mL Normal 4.0-51.3 [facility] Comment on above: Result Comment: CUT- OFF POINTS HAVE BEEN ESTABLISHED BASED ON THE FOURTH UNIVERSAL DEFINITIONS OF MYOCARDIAL INFARCTION. THE UPPER REFERENCE LIMIT (URL) OF TROPONIN, DEFINED THE 99TH PERCENTILE OF cTnI DISTRIBUTION IN A REFERENCE POPULATION, HAS BEEN CONFIRMED THE DECISION THRESHOLD FOR MA DIAGNOSIS. Performed By: #### H STROPN #### [facility] [address] [address] [address] Salinas Tsang HSTROP 6.5 pg/mL Normal 4.0-51.3 [facility] Comment on above: Result Comment: CUT- OFF POINTS HAVE BEEN ESTABLISHED BASED ON THE FOURTH UNIVERSAL DEFINITIONS OF MYOCARDIAL INFARCTION. THE UPPER REFERENCE LIMIT (URL) OF TROPONIN, DEFINED THE 99TH PERCENTILE OF cTnI DISTRIBUTION IN A REFERENCE POPULATION, HAS BEEN CONFIRMED THE DECISION THRESHOLD FOR MA DIAGNOSIS. Performed By: #### C MP, HSTROPN #### [facility] [address] [address] [address] Salinas Tsnag XR CHEST 1 Von 03-10-2023 XR CHEST [...] IVY PASCUAL Date: 2023-03-10 09:59 Normal [facility] INSULINon 09-30-2022 Insulin 22.0 uIU/mL Normal 2.6-24.9 [facility] Comment on above: Performed By: #### I NSULIN #### [facility] [address] [place] [address] Dr. Salinas Tsang BNPon 09-29-2022 Natriuretic peptide B (Bld) [Mass/Vol] 96.0 pg/mL Normal <=1,800.0 [facility] Comment on above: Performed By: #### A 1C #### [facility] [address] [place] [address] Dr. Salinas Tsang CBC AUTO DIFFon 09-29-2022 BASO # 0.0 103/ul Normal 0.0-0.1 [facility] Comment on above: Performed By: #### C BC #### [facility] [address] [place] [address] Dr. Salinas Tsang Basophils/100 WBC (Bld) 0.1 % Critically low 0.2-2.0 [facility] Comment on above: Performed By: #### C BC #### [facility] [address] [place] [address] Dr. Salinas Tsang EO # 0.2 103/ul Normal 0.0-0.7 [facility] Comment on above: Performed By: #### C BC #### [facility] [address] [place] [address] Dr. Salinas Tsang Eosinophils/100 WBC (Bld) 2.1 % Normal 0.9-7.0 [facility] Comment on above: Performed By: #### C BC #### [facility] [address] [place] [address] Dr. Salinas Tsang Erythrocyte distribution width (RBC) [Ratio] 13.1 % Normal 11.0-15.0 [facility] Comment on above: Performed By: #### C BC #### [facility] [address] [place] [address] Dr. Salinas Tsang Hematocrit (Bld) [Volume fraction] 43.6 % Normal 36.0-48.0 [facility] Comment on above: Performed By: #### C BC #### [facility] [address] [place] [address] Dr. Salinas Tsang Hemoglobin (Bld) [Mass/Vol] 14.2 g/dL Normal 12.0-16.0 [facility] Comment on above: Performed By: #### C BC #### [facility] [address] [place] [address] Dr. Salinas Tsang IG # 0.02 10e3/ul Normal 0.00-0.03 [facility] Comment on above: Performed By: #### C BC #### [facility] [address] [place] [address] Dr. Salinas Tsang IG % 0.3 % Normal 0.0-0.5 [facility] Comment on above: Performed By: #### C BC #### [facility] [address] [place] [address] Dr. Salinas Tsang LYMPH # 2.6 103/ul Normal 1.2-3.8 [facility] Comment on above: Performed By: #### C BC #### [facility] [address] [place] [address] Dr. Salinas Tsang Lymphocytes/100 WBC (Bld) 36.8 % Normal 20.5-60.0 [facility] Comment on above: Performed By: #### C BC #### [facility] [address] [place] [address] Dr. Salinas Tsang MANUAL DIFF REQ NO Normal [facility] Comment on above: Performed By: #### C BC #### [facility] [address] [place] [address] Dr. Salinas Tsang MCH (RBC) [Entitic mass] 30.4 pg Normal 26.7-34.0 [facility] Comment on above: Performed By: #### C BC #### [facility] [address] [place] [address] Dr. Salinas Tsang MCHC (RBC) [Mass/Vol] 32.6 g/dL Normal 29.9-35.2 [facility] Comment on above: Performed By: #### C BC #### [facility] [address] [place] [address] Dr. Salinas Tsang MCV (RBC) [Entitic vol] 93.4 fL Normal 81.0-99.0 [facility] Comment on above: Performed By: #### C BC #### [facility] [address] [place] [address] Dr. Salinas Tsang MONO # 0.6 103/ul Normal 0.3-0.8 [facility] Comment on above: Performed By: #### C BC #### [facility] [address] [place] [address] Dr. Salinas Tsang Monocytes/100 WBC (Bld) 8.8 % Normal 1.7-12.0 [facility] Comment on above: Performed By: #### C BC #### [facility] [address] [place] [address] Dr. Salinas Tsang NEUT # 3.7 103/ul Normal 1.4-6.5 [facility] Comment on above: Performed By: #### C BC #### [facility] [address] [place] [address] Dr. Salinas Tsang Neutrophils/100 WBC (Bld) 51.9 % Normal 43.0-75.0 [facility] Comment on above: Performed By: #### C BC #### [facility] [address] [place] [address] Dr. Salinas Tsang Platelet mean volume (Bld) [Entitic vol] 9.5 fL Normal 9.5-13.5 [facility] Comment on above: Performed By: #### C BC #### [facility] [address] [place] [address] Dr. Salinas Tsang PLT 194 103/ul Normal 150-450 [facility] Comment on above: Performed By: #### C BC #### [facility] [address] [place] [address] Dr. Salinas Tsang RBC 4.67 106/ul Normal 4.20-5.40 [facility] Comment on above: Performed By: #### C BC #### [facility] [address] [place] [address] Dr. Salinas Tsang WBC 7.1 103/ul Normal 4.0-11.0 [facility] Comment on above: Performed By: #### C BC #### [facility] [address] [address] [address] Salinas Tsang FREE THYROXINE INDEX T7on FTI 2.28 Normal 1.30-4.50 [facility] Comment on above: Performed By: #### A 1C #### [facility] [address] [address] [address] Salinas Tsang T3U 34.0 % Normal 30.0-39.0 [facility] Comment on above: Performed By: #### A 1C #### [facility] [address] [place] [address] Dr. Salinas Tsang T4 [Mass/Vol] 6.70 ug/dL Normal 4.80-13.90 [facility] Comment on above: Performed By: #### A 1C #### [facility] [address] [place] [address] Dr. Salinas Tsang GLYCOHEMOGLOBIN A1Con 2021 ADA RECOMMENDATION SEE BELOW Normal [facility] Comment on above: Result Comment: ADA RECOMMENDED LIMIT 4.0 - 6.0 ADA THERAPEUTIC TARGET < 7.0 ACTION SUGGESTED > 7.0 Performed By: #### A 1C #### [facility] [address] [place] [address] Dr. Salinas Tsang Glucose [Mass/Vol] 105 mg/dL Normal [facility] Comment on above: Performed By: #### A 1C #### [facility] [address] [place] [address] Dr. Salinas Tsang HbA1c (Bld) [Mass fraction] 5.3 % Normal 4.5-6.2 [facility] Comment on above: Performed By: #### A 1C #### [facility] [address] [place] [address] Dr. Salinas Tsang IRONon 09-29-2022 Iron [Mass/Vol] 103.0 ug/dL Normal 50.0-170.0 [facility] Comment on above: Performed By: #### A 1C #### [facility] [address] [place] [address] Dr. Salinas Tsang LIPID PROFILEon 09-29-2022 CHOL-HDL RATIO NORM SEE BELOW Normal [facility] Comment on above: Result Comment: 3.3 - 4.4 LOW RISK 4.4 - 7.1 AVERAGE RISK 7.1 - 11.0 MODERATE RISK >11.0 HIGH RISK Performed By: #### A 1C #### [facility] [facility] [address] [address] [address] Salinas Tsang Cholesterol [Mass/Vol] 143 mg/dL Normal <=200 [facility] Comment on above: Performed By: #### A 1C #### [facility] [address] [address] [address] Salinas Tsang Cholesterol in HDL [Mass/Vol] 39 mg/dL Critically low 40-60 [facility] Comment on above: Performed By: #### A 1C #### [facility] [address] [address] [address] Salinas Tsang Cholesterol in LDL [Mass/Vol] 75.4 mg/dL Normal [facility] Comment on above: Performed By: #### A 1C #### [facility] [address] [address] [address] Salinas Tsang Cholesterol.total/Ch olesterol in HDL [Mass ratio] 3.7 {ratio} Normal [facility] Comment on above: Performed By: #### A 1C #### [facility] [address] [address] [address] Salinas Tsang HDL NORMAL > or = 60 mg/dl - LOW CARDIOVASCULAR RISK <40 mg/dl - HIGH CARDIOVASCULAR RISK Normal [facility] Comment on above: Performed By: #### A 1C #### [facility] [address] [address] [address] Salinas Tsang LDL CALC NORMAL SEE BELOW Normal [facility] Comment on above: Result Comment: <100 mg/dl OPTIMAL 100 - 129 mg/dl NEAR OR ABOVE OPTIMAL 130 - 159 mg/dl BORDERLINE HIGH 160 - 189 mg/dl HIGH >190 mg/dl VERY HIGH Performed By: #### A 1C #### [facility] [address] [address] [address] Salinas Tsang Triglyceride [Mass/Vol] 143 mg/dL Normal <=150 [facility] Comment on above: Performed By: #### A 1C #### [facility] [address] [place] [address] Dr. Salinas Tsang VLDL CALC 28.6 mg/dL Normal [facility] Comment on above: Performed By: #### A 1C #### [facility] [address] [place] [address] Dr. Salinas Tsang PROF 14(COMP METB)on 022 Albumin [Mass/Vol] 3.5 g/dL Normal 3.4-5.0 [facility] Comment on above: Performed By: #### A 1C #### [facility] [address] [place] [address] Dr. Salinas Tsang Albumin/Globulin [Mass ratio] 1.0 {ratio} Normal [facility] Comment on above: Performed By: #### A 1C #### [facility] [address] [place] [address] Dr. Salinas Tsang ALP [Catalytic activity/Vol] 64 U/L Normal 46-116 [facility] Comment on above: Performed By: #### A 1C #### [facility] [address] [place] [address] Dr. Salinas Tsang ALT [Catalytic activity/Vol] 21 U/L Normal 14-59 [facility] Comment on above: Performed By: #### A 1C #### [facility] [address] [place] [address] Dr. Salinas Tsang Anion gap [Moles/Vol] 11.3 mmol/L Normal [facility] Comment on above: Performed By: #### A 1C #### [facility] [address] [place] [address] Dr. Salinas Tsang AST [Catalytic activity/Vol] 22 U/L Normal 15-37 [facility] Comment on above: Performed By: #### A 1C #### [facility] [address] [place] [address] Dr. Salinas Tsang Bilirubin [Mass/Vol] 0.4 mg/dL Normal 0.2-1.0 [facility] Comment on above: Performed By: #### A 1C #### [facility] [address] [address] [address] Salinas Tsang Calcium [Mass/Vol] 9.0 mg/dL Normal 8.5-10.[address] [facility] Comment on above: Performed By: #### A 1C #### [facility] [address] [address] [address] Salinas Tsang Chloride [Moles/Vol] 106 mmol/L Normal 98-107 [facility] Comment on above: Performed By: #### A 1C #### [facility] [address] [address] [address] Salinas Tsang CO2 [Moles/Vol] 29.6 mmol/L Normal 21.0-32.0 [facility] Comment on above: Performed By: #### A 1C #### [facility] [address] [place] [address] Dr. Salinas Tsang Creatinine [Mass/Vol] 0.70 mg/dL Normal 0.55-1.02 [facility] Comment on above: Performed By: #### A 1C #### [facility] [address] [address] [address] Salinas Tsang EGFR-AF GUAMANIAN >60 Normal >=60 [facility] Comment on above: Performed By: #### A 1C #### [facility] [address] [place] [address] Dr. Salinas Tsang EGFR-NON AF GUAMANIAN >60 Normal >=60 [facility] Comment on above: Performed By: #### A 1C #### [facility] [address] [place] [address] Dr. Salinas Tsang Globulin (S) [Mass/Vol] 3.4 g/dL Normal [facility] Comment on above: Performed By: #### A 1C #### [facility] [address] [place] [address] Dr. Salinas Tsang Glucose [Mass/Vol] 98 mg/dL Normal 74-[address] [facility] Comment on above: Performed By: #### A 1C #### [facility] [address] [place] [address] Dr. Salinas Tsang Potassium [Moles/Vol] 3.9 mmol/L Normal 3.5-5.1 [facility] Comment on above: Performed By: #### A 1C #### [facility] [address] [place] [address] Dr. Salinas Tsang Protein [Mass/Vol] 6.9 g/dL Normal 6.4-8.2 [facility] Comment on above: Performed By: #### A 1C #### [facility] [address] [place] [address] Dr. Salinas Tsang Sodium [Moles/Vol] 143 mmol/L Normal 136-[address] [facility] Comment on above: Performed By: #### A 1C #### [facility] [address] [place] [address] Dr. Salinas Tsang Urea nitrogen [Mass/Vol] 16.0 mg/dL Normal 7.0-18.0 [facility] Comment on above: Performed By: #### A 1C #### [facility] [address] [place] [address] Dr. Salinas Tsang Urea nitrogen/Creatinine [Mass ratio] 22.9 mg/mg Normal [facility] Comment on above: Performed By: #### A 1C #### [facility] [address] [place] [address] Dr. Salinas Tsang TSHon 09-29-2022 TSH 1.484 uIU/mL Normal 0.358-3.740 [facility] Comment on above: Performed By: #### A 1C #### [facility] [address] [place] [address] Dr. Salinas Tsang VITAMIN B12on 09-29-2022 Cobalamin (Vitamin B12) [Mass/Vol] 488.0 pg/mL Normal 193.0-986.0 [facility] Comment on above: Performed By: #### A 1C #### [facility] [address] [place] [address] Dr. Salinas Tsang VITAMIN D 25 OHon 09-29-2022 VIT D 25-OH 86.8 ng/mL Normal [facility] Comment on above: Performed By: #### A 1C #### [facility] [address] [place] [address] Dr. Salinas Tsang VIT D RANGES SEE BELOW Normal [facility] Comment on above: Result Comment: <20 ng/mL Vit D deficient 20 - <30 ng/mL Vit D insufficient 30 - 100 ng/mL Vit D sufficient >100 ng/mL Potential Toxicity Performed By: #### A 1C #### [facility] [address] [address] [address] Salinas Tsang XR ABD FLAT UP_PA [...] ABRAHAM ARNETT Date: 2022-08-30 17:04 Normal [facility] Covid-19 PCR (CVDTBH)on 05-28 SARS-CoV-2 (COVID-19) RNA FRANKO+probe Ql (Unsp spec) Detected Critically abnormal NOT DETECTED [facility] Comment on above: Result Comment: This test is not yet approved or cleared by the [place] FDA. When there are no FDA-approved or cleared tests available, and other criteria are met, FDA can make tests available under an emergency access mechanism called an Emergency Use Authorization (EUA). The EUA for this test is supported by the [place] of Health and Human Service's (HHS's) declaration [...] longer be used). Performed By: #### C VDTBH #### [facility] [address] [address] [address] Salinas Tsang Vital Signs Date Time Vital Sign Value Performing Clinician Faci lity 08-25-2024 10:57-0400 Body height 152.4 cm Joao Cheema DPM Work Phone: [facility] 08-25-2024 10:57-0400 Body mass index (BMI) [Ratio] 28.32 kg/m2 Joao Cheema DPM Work Phone: [facility] 08-25-2024 10:57-0400 Body weight 65.77 kg Joao Cheema DPM Work Phone: [facility] 08-25-2024 10:57-0400 Diastolic blood pressure 80 mm[Hg] Joao Cheema DPM Work Phone: [facility] 08-25-2024 10:57-0400 Heart rate 81 /min Joao Cheema DPM Work Phone: [facility] 08-25-2024 10:57-0400 Systolic blood pressure 126 mm[Hg] Joao Cheema DPM Work Phone: [facility] Healthcare Encounters Encounter Date Encounter Type Care Provider Facility Start: 08-25-2024 End: 08-25-2024 Bamboo flowsheet Joao Cheema DPM Work Phone: [facility] Start: 08-25-2024 End: 08-25-2024 Bamboo flowsheet Joao Cheema DPM Work Phone: [facility] Start: 08-25-2024 End: 08-25-2024 ambulatory JOAO CHEEMA Not Available Start: 08-25-2024 End: 08-25-2024 Office outpatient visit 15 minutes Joao Cheema DPM Work Phone: [facility] Comment on above: Pain due to onychomy cosis of toenails of both feet (Primary Dx); Hav (hallux abducto valgus), left; Contracture of left ankle Start: 08-25-2024 End: 08-25-2024 ambulatory JOAO CHEEMA Not Available Start: 07-21-2024 End: 07-21-2024 ambulatory JOAO CHEEMA Not Available Start: 07-14-2024 End: 07-14-2024 ambulatory JOAO CHEEMA Not Available Start: 06-30-2024 End: 06-30-2024 ambulatory JOAO CHEEMA Not Available Start: 06-09-2024 End: 06-09-2024 ambulatory JOAO CHEEMA Not Available Start: 03-03-2024 End: 03-03-2024 ambulatory JOAO CHEEMA Not Available Start: 03-10-2023 End: 03-10-[address] ANGÉLICA SIMMS . Facility:[facility] Start: 09-29-2022 End: 09-30-[address] ANGÉLICA ISMMS . Facility:[facility] Start: 08-30-2022 End: 08-30-2022 ambulatory MONTY MERCADO . Facility:[facility] Start: 08-05-[address] ANGÉLICA SIMMS . Facili ty:[facility] Start: 06-25-2022 End: 06-25-[address] ANGÉLICA SIMMS . Facility: Plan of Treatment Date Care Activity Detail Author Start: 11-03-2024 End: 11-03-2024 Patient encounter procedure 11/03/2024 10:50 AM EST Procedure Visit [facility] [address] [facility] [address] [place] [id number] Joao Cheema, DPM [address] [address] [facility] Start: 08-25-2024 End: 08-25-2024 Professional / ancillary services management 08/25/2024 12:30 PM EDT Ancillary Procedure [facility] [address] [facility] [address] [place] [address] Arrived [facility] Comment on above: Arrived Start: 08-25-2024 End: 08-25-2024 Patient encounter procedure 08/25/2024 11:00 AM EDT Procedure Visit [facility] [address] [facility] [address] [place] [address] Joao Cheema, DPWilliam [address] [address] Hav (hallux abducto valgus), right (Primary Dx); Pain due to onychomycosis of toenails of both feet [facility] Comment on above: Hav (hallux abducto valgus), right (Primary Dx); Pain due to onychomycosis of toenails of both feet XR Foot - left 3 Views XR foot 3 + views left Imaging Routine Hav (hallux abducto valgus), left 08/25/2024 12:25 PM EDT [facility] Work Phone: Payers Date Payer Category Payer Medicaid [employer] MEDICARE A DVANTAGE [id number] 1957 Medicare [id number] 1957 Self-pay 1935 Unknown [id number] 1935 Unknown [id number] 1937 Unknown [id number] 1937 Unknown [id number] 1937 Unknown [id number] 1937 Unknown [id number] 1937 Unknown [id number] [id number] 1937 Unknown [id number] 1937 Unknown [id number] [id number] 1937 Unknown [id number] [id number] 1937 Unknown [id number] 1937 Unknown [id number] Social History Date Type Detail Facility Start: 03-03-2024 Tobacco smoking stat [facility] Never smoked tobacco [facility] Start: 03-03-2024 Tobacco use and exposure Smokeless tobacco non-user [facility] Start: 07-21-2024 End: 08-25-2024 Alcoholic beverage intake Defer [facility] Start: 07-21-2024 End: 08-25-2024 History of Social function [facility] Start: 07-21-2024 End: 08-25-2024 Tobacco use panel [facility] Start: 1935 Sex assigned at Not on file [facility] NEGATED: Highlighted rowStart: NINF History of tobacco use Passive smoker [facility] History of Present illness Narrative 08-25-2024 Joao Cheema DPM - 08/25/2024 10:50 AM EDT Note Date & Type Note Facility 08-25-2024 History of Presen t illness Narrative Patient: Nory Berg : 1935 PCP: Angélica Simms MD SUBJECTIVE Patient presents today with a CC of elongated, thick nails. Pt states nails have been elongated and thick for many years and cause pain with ambulation in shoegear. Pt has tried previous treatment with minimal relief. Pt presents today for nail care and treatment. Patient had recent LEONARD PVRs with notable healing potential to postop sites Patient also has complaints of bilateral HAV deformitys that are painful nature and has tried wider shoes with minimal improvement. Patient has main complaint of left HAV deformity would like to have surgical intervention in near future and presents today with daughter Allergies: No Known Allergies Past Medical History: Past Medical History: Diagnosis Date History of hysterectomy Hypertension (CMS/HCC) Skin cancer (melanoma) (CMS/HCC) Medications: Current Outpatient Medications: aspirin 81 MG EC tablet, Take 81 mg by mouth Daily, Disp: , Rfl: calcium carbonate (Super Calcium) 1500 (600 Ca) MG tablet, Take 1,500 mg by mouth in the morning and 1,500 mg in the evening. Take with meals., Disp: , Rfl: omeprazole (PriLOSEC) [address] capsule, , Disp: , Rfl: simvastatin (Zocor) 20 MG tablet, , Disp: , Rfl: Social History: Social History Socioeconomic History Marital status: Spouse name: Not on file Number of children: Not on file Years of education: Not on file Highest education level: Not on file Occupational History Not on file Tobacco Use Smoking status: Never Passive exposure: Never Smokeless tobacco: Never Vaping Use Vaping status: Never Used Substance and Sexual Activity Alcohol use: Defer Drug use: Defer Sexual activity: Defer Other Topics Concern Not on file Social History Narrative Not on file Social Drivers of Health Financial Resource Strain: Not on file Food Insecurity: Not on file Transportation Needs: Not on file Physical Activity: Not on file Stress: Not on file Social Connections: Not on file Intimate Partner Violence: Unknown (12/17/2023) [facility] from [facility] [place] Safety & Environment Fear of Current or Ex-Partner: Not on file Emotionally Abused: Not on file Physically Abused: Not on file Sexually Abused: Not on file Physically or Sexually Abused: Not on file Housing Stability: Not on file ROS: General: denies fever, chills, fatigue, malaise GI: denies loose or watery stool on antibiotic OBJECTIVE LE EXAM: DERM: Elongated thick yellow crumbly nails digits 1 through 10. Negative hair growth b/l feet. Plus one pitting edema to bilateral ankles Left and right medial 1st metatarsal dorsal medial eminence rubor VASC: Non palpable pedal pulses bilaterally NEURO: Gross sensation intact to bilateral feet ORTHO: minimal pain on palpation to bilateral great digits HAV deformities bilaterally that are reducible. Notable positive palpation left dorsal medial eminence of the 1st metatarsal LEONARD/PVR [facility] relates normal findings per report Verbal order today for x-rays be taken by staff. AP/Oblique/Lateral 3 view radiographs today of the left foot demonstrated the following: Notable left IM angle of the HAV deformity of 12 degrees with elongated proximal phalanx of left hallux ASSESSMENT 1. Hav (hallux abducto valgus), right 2. Pain due to onychomycosis of toenails of both feet PLAN Discussed proper foot care with patient today. Debride nails in length and thickness digits 1 through 10 Reviewed x-rays today with patient Discussed conservative and surgical treatment options for patient today including postoperative time frame and surgical procedure in detail. Patient may continue with conservative treatments including [id number] anti-inflammatories and other treatments suggested today. Patient may want to be scheduled for surgical intervention in the near future. Patient of the left [place] bunionectomy with PCP of Dr. Pizano with [place] for postoperative pain and most likely cam walker postop Joao Cheema DPM documented in this encounter [facility] Healthcare Evaluation note Note Date & Type Note Facility Evaluation note Diagnosis Pain due to onychomycosis of toenails of both feet- Primary Hav (hallux abducto valgus), left Contracture of left ankle documented in this encounter [facility] Healthcare Summary Purpose Family History No Family History Records FoundNo Family History Records Found Advance Directives No Advanced Directives Records FoundNo Advanced Directives Records Found Additional Source Comments INFORMATION SOURCE (unrecogn ized section and content) DATE CREATED AUTHOR 03/11/2023 [facility] DATE CREATED AUTHOR 'S ORGANIZ ATION 08/27/2024 [facility] EPIC Care Teams (unrecognized sec tion and content) Antique Finisher Relationship Specialty Start Date End Date Angélica Simms MD [address] [place] [phone] PCP - General Family Medicine 03/03/24 Antique Finisher Relationship Specialty Start Date End Date Angélica Simms MD [address] [place] [phone] PCP - General Family Medicine 03/03/24 Reason for Visit (unrecogniz ed section and content) Reason Comments Toenail Care Non Dm Nails FOR RECORDS PERTAINING TO PATIENTS WHO ARE [...] BE BASED ON THE PRIMARY CLINICAL RECORDS. [employer] [facility]. provides no warranty or guarantee of the accuracy or completeness of information in this document.
[2024-09-15 04:25] LABS: Basophils Percent Auto 0.3 % (0.2-2.0); Eosinophils Absolute Auto 0.1 10^3/uL (0.0-0.7); Hemoglobin 14.4 g/dL (12.0-16.0); Immature Granulocytes Abs Auto 0.03 10^3/uL (0.00-0.03); Immature Granulocytes Pct Auto 0.3 % (0.0-0.5); Lymphocytes Percent Auto 32.1 % (20.5-60.0); Mean Corpuscular HGB Conc 32.7 g/dL (29.9-35.2); Mean Corpuscular Hemoglobin 31.7 pg (26.7-34.0); Mean Corpuscular Volume 96.9 fL (81.0-99.0); Mean Platelet Volume 10.4 fL (9.5-13.5); Monocytes Absolute Auto 1.1 10^3/uL (0.3-0.8); Monocytes Percent Auto 11.6 % (1.7-12.0); Neutrophils Absolute Auto 5.1 10^3/uL (1.4-6.5); Neutrophils Percent Auto 54.7 % (43.0-75.0); Platelet Count 181 10^3/uL (150-450); Red Blood Count 4.54 10^6/uL (4.20-5.40); Red Cell Distribution Width 12.6 % (11.0-15.0); White Blood Count 9.3 10^3/uL (4.0-11.0)
[2024-09-15] MEDS: 0.9 % SODIUM CHLORIDE 500 ML IV (04:51)
[2024-09-15 05:01] LABS: Anion Gap 14.5; BUN Creatinine Ratio 16.5; Calcium 9.1 mg/dL (8.5-10.1); Carbon Dioxide 26.2 mmol/L (21.0-32.0); Chloride 107 mmol/L (98-107); Estimated GFR (African America >60 (>=60 mL/min/1.73m^2); Estimated GFR (Non-African Ame >60 (>=60 mL/min/1.73m^2); Glucose 110 mg/dL (74-106); Potassium 3.7 mmol/L (3.5-5.1); Sodium 144 mmol/L (136-145)
[2024-09-15 06:03] VITALS: BP 128/79; PULSE 62; TEMP 36.8; O2SAT 97
--- NOTE | 2024-09-15 06:04 | PC.NURSE ---
i gave this patient items to collect a stool sample and instructed her to return it and bring her Rx and take to lab dept. I gave verbal and paper discharge along with 1Rx(stool) to this patient, and patient voices yes to understanding these. at time of discharge this patient voices no concerns and shows no signs of distress
== END 2024-09-15 06:06 | disposition home or self-care (01) ==
PROVIDERS: Emergency Provider Emergency Medicine
DX: R19.7 Diarrhea, unspecified (principal); Z90.710 Acquired absence of both cervix and uterus; Z63.4 Disappearance and death of family member
CPT/HCPCS: 36415; 80048; 85025; 87045; 87046; 87427; 87493; 99283

== ENCOUNTER 2024-09-17 03:26 | Emergency (ER) | payer MEDICARE, SELFPAY ==
[2024-09-17 03:32] VITALS: TEMP 37; O2SAT 98; BMI 31.2
--- OUTSIDE RECORDS SUMMARY | 2024-09-17 03:34 | XMS_ITS | CCD ---
Author Organization [facility] Inform ion [facility] Care Team Providers Care Senior Managing Director Name Role Phone DEMI ., DR LINDSAY Primary Care Unavailable HOY ., DR LINDSAY Admitting Unavailable HOY ., DR LINDSAY Attending Unavailable HOY ., DR LINDSAY Primary Care Unavailable JABIER, DR SHANIQUE Weber Attending Unavailabl e REINECK, DR SHANIQUE Weber Consulting Unavailabl e JABIER, DR SHANIQUE Wbeer Admitting Unavailabl e ANKUR, DR IVY Morse [...] Unavailable Angélica Simms MD Primary Care Provider [phone] JOAO CHEEMA Attending Unavailable JOAO CHEEMA Attending Unavailable JOAO CHEEMA Attending Unavailable JOAO CHEEMA Attending Unavailable JOAO CHEEMA Attending Unavailable JOAO CHEEMA Attending Unavailable JOAO CHEEMA Referring Unavailable Allergies Allergy Classification Reported Allergen(s) Allergy Type Date of Onset Reaction(s) Facility (1 source) Chocolate Drug allergy (disorder) [facility] (1 source) piperazine Drug Allergy [facility] Medications Current Medications Medication Drug Class(es) [...] ankle] 08-25-2024 Chronic Other aftercare (1 source) jail (current) use of aspirin; 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: [DIRECTOR OF ACADEMIC CURRENT USE OF ASPIRIN] Onset: 03-11-2023 Episodic Other aftercare (1 source) [facility] (current[facility] drug therapy; 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: [OTH DIRECTOR OF ACADEMIC CURRENT DRUG THERAPY] Onset: 03-11-2023 Episodic Other [...] 03-10-2023 BASO # 0.0 103/ul Normal 0.0-0.1 [facility] Comment on above: Performed By: #### A 1C #### [facility] [address] [place] [address] Dr. Salinas Tsang Basophils/100 WBC (Bld) 0.3 % Normal 0.2-2.0 [facility] Comment on above: Performed By: #### A 1C #### [facility] [address] [place] [address] Dr. Salinas Tsang EO # 0.1 103/ul Normal 0.0-0.7 [facility] Comment on above: Performed By: #### A 1C #### [facility] [address] [place] [address] Dr. Salinas Tsang Eosinophils/100 WBC (Bld) 1.7 % Normal 0.9-7.0 [facility] Comment on above: Performed By: #### A 1C #### [facility] [address] [place] [address] Dr. Salinas Tsang Erythrocyte distribution width (RBC) [Ratio] 12.4 % Normal 11.0-15.0 [facility] Comment on above: Performed By: #### A 1C #### [facility] [address] [place] [address] Dr. Salinas Tsang Hematocrit (Bld) [Volume fraction] 40.3 % Normal 36.0-48.0 [facility] Comment on above: Performed By: #### A 1C #### [facility] [address] [place] [address] Dr. Salinas Tsang Hemoglobin (Bld) [Mass/Vol] 13.3 g/dL Normal 12.0-16.0 [facility] Comment on above: Performed By: #### A 1C #### [facility] [address] [place] [address] Dr. Salinas Tsang IG # 0.01 10e3/ul Normal 0.00-0.03 [facility] Comment on above: Performed By: #### A 1C #### [facility] [address] [place] [address] Dr. Salinas Tsang IG % 0.1 % Normal 0.0-0.5 [facility] Comment on above: Performed By: #### A 1C #### [facility] [address] [place] [address] Dr. Salinas Tsang LYMPH # 1.9 103/ul Normal 1.2-3.8 [facility] Comment on above: Performed By: #### A 1C #### [facility] [address] [place] [address] Dr. Salinas Tsang Lymphocytes/100 WBC (Bld) 27.4 % Normal 20.5-60.0 [facility] Comment on above: Performed By: #### A 1C #### [facility] [address] [place] [address] Dr. Salinas Tsang MANUAL DIFF REQ NO Normal [facility] Comment on above: Performed By: #### A 1C #### [facility] [address] [place] [address] Dr. Salinas Tsang MCH (RBC) [Entitic mass] 31.2 pg Normal 26.7-34.0 [facility] Comment on above: Performed By: #### A 1C #### [facility] [address] [place] [address] Dr. Salnias Tsang MCHC (RBC) [Mass/Vol] 33.0 g/dL Normal 29.9-35.2 [facility] Comment on above: Performed By: #### A 1C #### [facility] [address] [place] [address] Dr. Salinas Tsang MCV (RBC) [Entitic vol] 94.6 fL Normal 81.0-99.0 [facility] Comment on above: Performed By: #### A 1C #### [facility] [address] [place] [address] Dr. Salinas Tsang MONO # 0.8 103/ul Normal 0.3-0.8 [facility] Comment on above: Performed By: #### A 1C #### [facility] [address] [address] [address] Salinas Tsang Monocytes/100 WBC (Bld) 12.1 % Critically high 1.7-12.0 [facility] Comment on above: Performed By: #### A 1C #### [facility] [address] [place] [address] Dr. Salinas Tsang NEUT # 4.0 103/ul Normal 1.4-6.5 [facility] Comment on above: Performed By: #### A 1C #### [facility] [address] [place] [address] Dr. Salinas Tsang Neutrophils/100 WBC (Bld) 58.4 % Normal 43.0-75.0 [facility] Comment on above: Performed By: #### A 1C #### [facility] [address] [place] [address] Dr. Salinas Tsang Platelet mean volume (Bld) [Entitic vol] 9.8 fL Normal 9.5-13.5 [facility] Comment on above: Performed By: #### A 1C #### [facility] [address] [place] [address] Dr. Salinas Tsang PLT 205 103/ul Normal 150-450 [facility] Comment on above: Performed By: #### A 1C #### [facility] [address] [place] [address] Dr. Salinas Tsang RBC 4.26 106/ul Normal 4.20-5.40 [facility] Comment on above: Performed By: #### A 1C #### [facility] [address] [place] [address] Dr. Salinas Tsang WBC 6.9 103/ul Normal 4.0-11.0 [facility] Comment on above: Performed By: #### A 1C #### [facility] [address] [place] [address] Dr. Salinas Tsang PROF 14(COMP METB)on 023 Albumin [Mass/Vol] 3.2 g/dL Critically low 3.4-5.0 [facility] Comment on above: Performed By: #### C MP, HSTROPN #### [facility] [address] [address] [address] Salinas Tsang Albumin/Globulin [Mass ratio] 0.9 {ratio} Normal [facility] Comment on above: Performed By: #### C MP, HSTROPN #### [facility] [address] [address] [address] Salinas Tsang ALP [Catalytic activity/Vol] 75 U/L Normal 46-116 [facility] Comment on above: Performed By: #### C MP, HSTROPN #### [facility] [address] [place] [address] Dr. Salinas Tsang ALT [Catalytic activity/Vol] 19 U/L Normal 14-59 [facility] Comment on above: Performed By: #### C MP, HSTROPN #### [facility] [address] [place] [address] Dr. Salinas Tsang Anion gap [Moles/Vol] 12.2 mmol/L Normal [facility] Comment on above: Performed By: #### C MP, HSTROPN #### [facility] [address] [place] [address] Dr. Salinas Tsang AST [Catalytic activity/Vol] 23 U/L Normal 15-37 [facility] Comment on above: Performed By: #### C MP, HSTROPN #### [facility] [address] [place] [address] Dr. Salinas Tsang Bilirubin [Mass/Vol] 0.2 mg/dL Normal 0.2-1.0 [facility] Comment on above: Performed By: #### C MP, HSTROPN #### [facility] [address] [place] [address] Dr. Salinas Tsang Calcium [Mass/Vol] 9.2 mg/dL Normal 8.5-10.1 [facility] Comment on above: Performed By: #### C MP, HSTROPN #### [facility] [address] [place] [address] Dr. Salinas Tsang Chloride [Moles/Vol] 106 mmol/L Normal 98-107 [facility] Comment on above: Performed By: #### C MP, HSTROPN #### [facility] [address] [address] [address] Salinas Tsang CO2 [Moles/Vol] 27.8 mmol/L Normal 21.0-32.0 [facility] Comment on above: Performed By: #### C HELENA, HSTROPN #### [facility] [address] [address] [address] Salinas Tsang Creatinine [Mass/Vol] 0.71 mg/dL Normal 0.55-1.02 [facility] Comment on above: Performed By: #### C HELENA, HSTROPN #### [facility] [address] [place] [address] Dr. Salinas Tsang EGFR-AF CHINESE >60 Normal >=60 [facility] Comment on above: Performed By: #### C HELENA, HSTROPN #### [facility] [address] [place] [address] Dr. Salinas Tsang EGFR-NON AF CHINESE >60 Normal >=60 [facility] Comment on above: Performed By: #### C HELENA, HSTROPN #### [facility] [address] [place] [address] Dr. Salinas Tsang Globulin (S) [Mass/Vol] 3.5 g/dL Normal [facility] Comment on above: Performed By: #### C HELENA, HSTROPN #### [facility] [address] [address] [address] Salinas Tsang Glucose [Mass/Vol] 92 mg/dL Normal 74-106 [facility] Comment on above: Performed By: #### C HELENA, HSTROPN #### [facility] [address] [address] [address] Salinas Tsang Potassium [Moles/Vol] 4.0 mmol/L Normal 3.5-5.1 [facility] Comment on above: Performed By: #### C HELENA, HSTROPN #### [facility] [address] [place] [address] Dr. Salinas Tsang Protein [Mass/Vol] 6.7 g/dL Normal 6.4-8.2 [facility] Comment on above: Performed By: #### C MP, HSTROPN #### [facility] [address] [place] [address] Dr. Salinas Tsang Sodium [Moles/Vol] 142 mmol/L Normal 136-145 [facility] Comment on above: Performed By: #### C MP, HSTROPN #### [facility] [address] [place] [address] Dr. Salinas Tsang Urea nitrogen [Mass/Vol] 17.0 mg/dL Normal 7.0-18.0 [facility] Comment on above: Performed By: #### C MP, HSTROPN #### [facility] [address] [place] [address] Dr. Salinas Tsang Urea nitrogen/Creatinine [Mass ratio] 23.9 mg/mg Normal [facility] Comment on above: Performed By: #### C MP, HSTROPN #### [facility] [address] [place] [address] Dr. Salinas Tsang PROTIMEon 03-10-2023 INR Coag (PPP) [Relative time] 0.99 {INR} Normal [facility] Comment on above: Performed By: #### P TT, PT #### [facility] [address] [place] [address] Dr. Salinas Tsang INR GUIDELINES SEE BELOW Normal [facility] Comment on above: Result Comment: KARIN RED INR: 2.0 - 3.0 CONDITIONS NOT LISTED BELOW 2.5 - 3.5 FOR PROSTHETIC HEART VALVE REPLACEMENT 2.5 - 3.5 RECURRENT THROMBOSIS Performed By: #### P TT, PT #### [facility] [address] [place] [address] Dr. Salinas Tsang PT Coag (PPP) [Time] 10.5 s Normal 9.0-11.6 [facility] Comment on above: Performed By: #### P TT, PT #### [facility] [address] [place] [address] Dr. Salinas Tsang PTTon 03-10-2023 aPTT Coag (Bld) [Time] 23.1 s Normal 22.3-36.2 [facility] Comment on above: Performed By: #### A 1C #### [facility] [address] [address] [address] Salinas Tsang TROPONIN, HIGH SENSITIVITYon 03-10-2023 HSTROP 7.0 pg/mL Normal 4.0-51.3 [facility] Comment on above: Result Comment: CUT- OFF POINTS HAVE BEEN ESTABLISHED BASED ON THE FOURTH UNIVERSAL DEFINITIONS OF MYOCARDIAL INFARCTION. THE UPPER REFERENCE LIMIT (URL) OF TROPONIN, DEFINED THE 99TH PERCENTILE OF cTnI DISTRIBUTION IN A REFERENCE POPULATION, HAS BEEN CONFIRMED THE DECISION THRESHOLD FOR NH DIAGNOSIS. Performed By: #### H STROPN #### [facility] [address] [address] [address] Salinas Tsang HSTROP 6.5 pg/mL Normal 4.0-51.3 [facility] Comment on above: Result Comment: CUT- OFF POINTS HAVE BEEN ESTABLISHED BASED ON THE FOURTH UNIVERSAL DEFINITIONS OF MYOCARDIAL INFARCTION. THE UPPER REFERENCE LIMIT (URL) OF TROPONIN, DEFINED THE 99TH PERCENTILE OF cTnI DISTRIBUTION IN A REFERENCE POPULATION, HAS BEEN CONFIRMED THE DECISION THRESHOLD FOR NH DIAGNOSIS. Performed By: #### C MP, HSTROPN #### [facility] [address] [address] [address] Salinas Tsang XR CHEST 1 Von [...] IMPRESSION: 1. Normal chest. Electronically authenticated by: IYV PASCUAL Date: 2023-03-10 09:59 Normal [facility] INSULINon 09-30-2022 Insulin 22.0 uIU/mL Normal 2.6-24.9 [facility] Comment on above: Performed By: #### I NSULIN #### [facility] [address] [place] [address] Dr. Salinas Tsang BNPon 09-29-2022 Natriuretic peptide B (Bld) [Mass/Vol] 96.0 pg/mL Normal <=1,800.0 [facility] Comment on above: Performed By: #### A 1C #### [facility] [address] [place] [address] Dr. Salinas Tsang CBC AUTO DIFFon 09-29-2022 BASO # 0.0 103/ul Normal 0.0-0.1 [facility] Comment on above: Performed By: #### C BC #### [facility] [address] [place] [address] Dr. Salinas Tsang Basophils/100 WBC (Bld) 0.1 % Critically low 0.2-2.0 [facility] Comment on above: Performed By: #### C BC #### [facility] [address] [place] [address] Dr. Salinas Tsang EO # 0.2 103/ul Normal 0.0-0.7 [facility] Comment on above: Performed By: #### C BC #### [facility] [address] [place] [address] Dr. Salinas Tsang Eosinophils/100 WBC (Bld) 2.1 % Normal 0.9-7.0 [facility] Comment on above: Performed By: #### C BC #### [facility] [address] [place] [address] Dr. Salinas Tsang Erythrocyte distribution width (RBC) [Ratio] 13.1 % Normal 11.0-15.0 [facility] Comment on above: Performed By: #### C BC #### [facility] [address] [place] [address] Dr. Salinas Tsang Hematocrit (Bld) [Volume fraction] 43.6 % Normal 36.0-48.0 [facility] Comment on above: Performed By: #### C BC #### [facility] [address] [place] [address] Dr. Salinas Tsang Hemoglobin (Bld) [Mass/Vol] 14.2 g/dL Normal 12.0-16.0 [facility] Comment on above: Performed By: #### C BC #### [facility] [address] [place] [address] Dr. Salinas Tsang IG # 0.02 10e3/ul Normal 0.00-0.03 [facility] Comment on above: Performed By: #### C BC #### [facility] [address] [place] [address] Dr. Salinas Tsang IG % 0.3 % Normal 0.0-0.5 [facility] Comment on above: Performed By: #### C BC #### [facility] [address] [place] [address] Dr. Salinas Tsang LYMPH # 2.6 103/ul Normal 1.2-3.8 [facility] Comment on above: Performed By: #### C BC #### [facility] [address] [place] [address] Dr. Salinas Tsang Lymphocytes/100 WBC (Bld) 36.8 % Normal 20.5-60.0 [facility] Comment on above: Performed By: #### C BC #### [facility] [address] [place] [address] Dr. Salinas Tsang MANUAL DIFF REQ NO Normal [facility] Comment on above: Performed By: #### C BC #### [facility] [address] [place] [address] Dr. Salinas Tsang MCH (RBC) [Entitic mass] 30.4 pg Normal 26.7-34.0 [facility] Comment on above: Performed By: #### C BC #### [facility] [address] [place] [address] Dr. Salinas Tsang MCHC (RBC) [Mass/Vol] 32.6 g/dL Normal 29.9-35.2 [facility] Comment on above: Performed By: #### C BC #### [facility] [address] [place] [address] Dr. Salinas Tsang MCV (RBC) [Entitic vol] 93.4 fL Normal 81.0-99.0 [facility] Comment on above: Performed By: #### C BC #### [facility] [address] [place] [address] Dr. Salinas Tsang MONO # 0.6 103/ul Normal 0.3-0.8 [facility] Comment on above: Performed By: #### C BC #### [facility] [address] [place] [address] Dr. Salinas Tsang Monocytes/100 WBC (Bld) 8.8 % Normal 1.7-12.0 [facility] Comment on above: Performed By: #### C BC #### [facility] [address] [place] [address] Dr. Salinas Tsang NEUT # 3.7 103/ul Normal 1.4-6.5 [facility] Comment on above: Performed By: #### C BC #### [facility] [address] [place] [address] Dr. Salinas Tsang Neutrophils/100 WBC (Bld) 51.9 % Normal 43.0-75.0 [facility] Comment on above: Performed By: #### C BC #### [facility] [address] [place] [address] Dr. Salinas Tsang Platelet mean volume (Bld) [Entitic vol] 9.5 fL Normal 9.5-13.5 [facility] Comment on above: Performed By: #### C BC #### [facility] [address] [place] [address] Dr. Salinas Tsang PLT 194 103/ul Normal 150-450 [facility] Comment on above: Performed By: #### C BC #### [facility] [address] [place] [address] Dr. Salinas Tsang RBC 4.67 106/ul Normal 4.20-5.40 [facility] Comment on above: Performed By: #### C BC #### [facility] [address] [place] [address] Dr. Salinas Tsang WBC 7.1 103/ul Normal 4.0-11.0 [facility] Comment on above: Performed By: #### C BC #### [facility] [address] [address] [address] Salinas Tsang FREE THYROXINE INDEX T7on FTI 2.28 Normal 1.30-4.50 [facility] Comment on above: Performed By: #### A 1C #### [facility] [address] [address] [address] Salinas Tsang T3U 34.0 % Normal 30.0-39.0 [facility] Comment on above: Performed By: #### A 1C #### [facility] [address] [place] [address] Dr. Salinas Tsang T4 [Mass/Vol] 6.70 ug/dL Normal 4.80-13.90 [facility] Comment on above: Performed By: #### A 1C #### [facility] [address] [place] [address] Dr. Salinas Tsang GLYCOHEMOGLOBIN A1Con 2021 ADA RECOMMENDATION SEE BELOW Normal [facility] Comment on above: Result Comment: ADA RECOMMENDED LIMIT 4.0 - 6.0 ADA THERAPEUTIC TARGET < 7.0 ACTION SUGGESTED > 7.0 Performed By: #### A 1C #### [facility] [address] [place] [address] Dr. Salinas Tsang Glucose [Mass/Vol] 105 mg/dL Normal [facility] Comment on above: Performed By: #### A 1C #### [facility] [address] [place] [address] Dr. Salinas Tsang HbA1c (Bld) [Mass fraction] 5.3 % Normal 4.5-6.2 [facility] Comment on above: Performed By: #### A 1C #### [facility] [address] [place] [address] Dr. Salinas Tsang IRONon 09-29-2022 Iron [Mass/Vol] 103.0 ug/dL Normal 50.0-170.0 [facility] Comment on above: Performed By: #### A 1C #### [facility] [address] [place] [address] Dr. Salinas Tsang LIPID PROFILEon 09-29-2022 CHOL-HDL RATIO NORM SEE BELOW Normal [facility] Comment on above: Result Comment: 3.3 - 4.4 LOW RISK 4.4 - 7.1 AVERAGE RISK 7.1 - 11.0 MODERATE RISK >11.0 HIGH RISK Performed By: #### A 1C #### [facility] [address] [address] [address] Salinas Tsang Cholesterol [Mass/Vol] 143 mg/dL Normal <=200 [facility] Comment on above: Performed By: #### A 1C #### [facility] [address] [address] [address] Salinas Tsang Cholesterol in HDL [Mass/Vol] 39 mg/dL Critically low 40-60 [facility] Comment on above: Performed By: #### A 1C #### [facility] [address] [address] [address] Salinas Tsang Cholesterol in LDL [Mass/Vol] 75.4 mg/dL Normal [facility] Comment on above: Performed By: #### A 1C #### [facility] [address] [address] [address] Salinas Tsang Cholesterol.total/Ch olesterol in HDL [Mass ratio] 3.7 {ratio} Normal [facility] Comment on above: Performed By: #### A 1C #### [facility] [address] [address] [address] Salinas Tsang HDL NORMAL > or = 60 mg/dl - LOW CARDIOVASCULAR RISK <40 mg/dl - HIGH CARDIOVASCULAR RISK Normal [facility] Comment on above: Performed By: #### A 1C #### [facility] [address] [address] [address] Salinas Tsang LDL CALC NORMAL SEE BELOW Normal [facility] Comment on above: Result Comment: <100 mg/dl OPTIMAL 100 - 129 mg/dl NEAR OR ABOVE OPTIMAL 130 - 159 mg/dl BORDERLINE HIGH 160 - 189 mg/dl HIGH >190 mg/dl VERY HIGH Performed By: #### A 1C #### [facility] [address] [address] [address] Salinas Tsang Triglyceride [Mass/Vol] 143 mg/dL Normal <=150 [facility] Comment on above: Performed By: #### A 1C #### [facility] [address] [place] [address] Dr. Salinas Tsang VLDL CALC 28.6 mg/dL Normal [facility] Comment on above: Performed By: #### A 1C #### [facility] [address] [place] [address] Dr. Salinas Tsang PROF 14(COMP METB)on 022 Albumin [Mass/Vol] 3.5 g/dL Normal 3.4-5.0 [facility] Comment on above: Performed By: #### A 1C #### [facility] [address] [place] [address] Dr. Salinas Tsang Albumin/Globulin [Mass ratio] 1.0 {ratio} Normal [facility] Comment on above: Performed By: #### A 1C #### [facility] [address] [place] [address] Dr. Salinas Tsang ALP [Catalytic activity/Vol] 64 U/L Normal 46-116 [facility] Comment on above: Performed By: #### A 1C #### [facility] [address] [place] [address] Dr. Salinas Tsang ALT [Catalytic activity/Vol] 21 U/L Normal 14-59 [facility] Comment on above: Performed By: #### A 1C #### [facility] [address] [place] [address] Dr. Salinas Tsang Anion gap [Moles/Vol] 11.3 mmol/L Normal [facility] Comment on above: Performed By: #### A 1C #### [facility] [address] [place] [address] Dr. Salinas Tsang AST [Catalytic activity/Vol] 22 U/L Normal 15-37 [facility] Comment on above: Performed By: #### A 1C #### [facility] [address] [place] [address] Dr. Salinas Tsang Bilirubin [Mass/Vol] 0.4 mg/dL Normal 0.2-1.0 [facility] Comment on above: Performed By: #### A 1C #### [facility] [address] [address] [address] Salinas Tsang Calcium [Mass/Vol] 9.0 mg/dL Normal 8.5-10.1 [facility] Comment on above: Performed By: #### A 1C #### [facility] [address] [address] [address] Salinas Tsang Chloride [Moles/Vol] 106 mmol/L Normal 98-107 [facility] Comment on above: Performed By: #### A 1C #### [facility] [address] [address] [address] Salinas Tsang CO2 [Moles/Vol] 29.6 mmol/L Normal 21.0-32.0 [facility] Comment on above: Performed By: #### A 1C #### [facility] [address] [place] [address] Dr. Salinas Tsang Creatinine [Mass/Vol] 0.70 mg/dL Normal 0.55-1.02 [facility] Comment on above: Performed By: #### A 1C #### [facility] [address] [address] [address] Salinas Tsang EGFR-AF CHINESE >60 Normal >=60 [facility] Comment on above: Performed By: #### A 1C #### [facility] [address] [place] [address] Dr. Salinas Tsang EGFR-NON AF CHINESE >60 Normal >=60 [facility] Comment on above: Performed By: #### A 1C #### [facility] [address] [place] [address] Dr. Salinas Tsang Globulin (S) [Mass/Vol] 3.4 g/dL Normal [facility] Comment on above: Performed By: #### A 1C #### [facility] [address] [place] [address] Dr. Salinas Tsang Glucose [Mass/Vol] 98 mg/dL Normal 74-106 [facility] Comment on above: Performed By: #### A 1C #### [facility] [address] [place] [address] Dr. Salinas Tsang Potassium [Moles/Vol] 3.9 mmol/L Normal 3.5-5.1 [facility] Comment on above: Performed By: #### A 1C #### [facility] [address] [place] [address] Dr. Salinas Tsang Protein [Mass/Vol] 6.9 g/dL Normal 6.4-8.2 [facility] Comment on above: Performed By: #### A 1C #### [facility] [address] [place] [address] Dr. Salinas Tsang Sodium [Moles/Vol] 143 mmol/L Normal 136-145 [facility] Comment on above: Performed By: #### A 1C #### [facility] [address] [place] [address] Dr. Salinas Tsang Urea nitrogen [Mass/Vol] 16.0 mg/dL Normal 7.0-18.0 [facility] Comment on above: Performed By: #### A 1C #### [facility] [address] [place] [address] Dr. Salinas Tsang Urea nitrogen/Creatinine [Mass ratio] 22.9 mg/mg Normal [facility] Comment on above: Performed By: #### A 1C #### [facility] [address] [place] [address] Dr. Salinas Tsang TSHon 09-29-2022 TSH 1.484 uIU/mL Normal 0.358-3.740 [facility] Comment on above: Performed By: #### A 1C #### [facility] [address] [place] [address] Dr. Salinas Tsang VITAMIN B12on 09-29-2022 Cobalamin (Vitamin B12) [Mass/Vol] 488.0 pg/mL Normal 193.0-986.0 [facility] Comment on above: Performed By: #### A 1C #### [facility] [address] [place] [address] Dr. Salinas Tsang VITAMIN D 25 OHon 09-29-2022 VIT D 25-OH 86.8 ng/mL Normal [facility] Comment on above: Performed By: #### A 1C #### [facility] [address] [place] [address] Dr. Salinas Tsagn VIT D RANGES SEE BELOW Normal [facility] Comment on above: Result Comment: <20 ng/mL Vit D deficient 20 - <30 ng/mL Vit D insufficient 30 - 100 ng/mL Vit D sufficient >100 ng/mL Potential Toxicity Performed By: #### A 1C #### [facility] [address] [address] [address] Salinas Tsang XR ABD FLAT UP_PA [...] ABRAHAM ARNETT Date: 2022-08-30 17:04 Normal [facility] Covid-19 PCR (CVDTBH)on 05-28 SARS-CoV-2 (COVID-19) RNA FRANKO+probe Ql (Unsp spec) Detected Critically abnormal NOT DETECTED [facility] Comment on above: Result Comment: This test is not yet approved or cleared by the [place] FDA. When there are no FDA-approved or cleared tests available, and other criteria are met, FDA can make tests available under an emergency access mechanism called an Emergency Use Authorization (EUA). The EUA for this test is supported by the [place] of Health and Human Service's (HHS's) declaration [...] used). Performed By: #### C VDTBH #### [facility] [address] [address] [address] Salinas Tsang Vital Signs Date Time Vital Sign Value Performing Clinician Faci lity 08-25-2024 10:57-0400 Body height 152.4 cm Joao Cheema DPM Work Phone: [facility] 08-25-2024 10:57-0400 Body mass index (BMI) [Ratio] 28.32 kg/m2 Joao Cheema DPM Work Phone: [facility] 08-25-2024 10:57-0400 Body weight 65.77 kg Joao Cheema DPM Work Phone: [facility] 08-25-2024 10:57-0400 Diastolic blood pressure 80 mm[Hg] Joao Cheema DPM Work Phone: [facility] 08-25-2024 10:57-0400 Heart rate 81 /min Joao Cheema DPM Work Phone: [facility] 08-25-2024 10:57-0400 Systolic blood pressure 126 mm[Hg] Joao Cheema DPM Work Phone: [facility] Healthcare Encounters Encounter Date Encounter Type Care Provider Facility Start: 08-25-2024 End: 08-25-2024 Bamboo flowsheet Joao Cheema DPM Work Phone: [facility] Start: 08-25-2024 End: 08-25-2024 Bamboo flowsheet Joao Cheema DPM Work Phone: [facility] Start: 08-25-2024 End: 08-25-2024 ambulatory JOAO CHEEMA Not Available Start: 08-25-2024 End: 08-25-2024 Office outpatient visit 15 minutes Joao Cheema DPM Work Phone: [facility] Comment on above: Pain due [...] Visit [facility] [address] [facility] [address] [place] [id number] Joao Cheema, DPM [address] [address] [facility] Start: 08-25-2024 End: 08-25-2024 Professional / ancillary services management 08/25/2024 12:30 PM EDT Ancillary Procedure [facility] [address] [facility] [address] [place] [address] Arrived [facility] Comment on above: Arrived Start: 08-25-2024 End: 08-25-2024 Patient encounter procedure 08/25/2024 11:00 AM EDT Procedure Visit [facility] [address] [facility] [address] [place] [address] Joao Cheema, DPWilliam [address] [address] Hav (hallux abducto valgus), right (Primary Dx); [...] Category Payer Medicaid [employer] MEDICARE A DVANTAGE 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
--- NOTE | 2024-09-17 04:01 | ED.ABDPAIN1 ---
HPI - Abdominal Pain General Chief Complaint: Abdominal Pain Stated Complaint: ABD PAIN Time Seen by Provider: 09/17/24 03:48 Source: patient Mode of arrival: Wheelchair Limitations: no limitations History of Present Illness HPI narrative: patient presents complaining of diarrhea for one week. Denies nausea or vomiting. States diarrhea is watery. Seen here about 3 days ago and was not able to provide a sample. States she had explosive diarrhea again a couple of hours ago and she brought in a sample. She has Linzess listed as one of her medications but states she is not taking Linzess Related Data Home Medications ?Medication ?Instructions ?Recorded ?Confirmed aspirin 81 mg tablet,delayed 81 mg PO DAILY 06/30/23 09/17/24 release (Adult Aspirin Regimen) linaclotide 72 mcg capsule 72 mcg PO DAILY 06/30/23 06/30/23 (Linzess) lisinopril 10 mg tablet 10 mg PO DAILY 06/30/23 09/17/24 omeprazole 40 mg capsule,delayed 40 mg PO DAILY 06/30/23 09/17/24 release ropinirole 1 mg tablet 1 mg PO DAILY 06/30/23 09/17/24 simvastatin 20 mg tablet 20 mg PO DAILY 06/30/23 09/17/24 Allergies Allergy/AdvReac Type Severity Reaction Status Date / Time No Known Drug Allergies Allergy Verified 09/17/24 03:34 Review of Systems ROS Status of ROS 10 or more systems reviewed and unremarkable except as noted in history and below [facility] Medical History (Updated 09/17/24 @ 06:51 by Ravi Hui MD) 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, unspecified (ICD-10) Heel spur ?M77.30 - Calcaneal spur, unspecified foot (ICD-10) Left leg pain ?M79.605 - Pain in left leg (ICD-10) 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 ?R26.2 - Difficulty in walking, not elsewhere classified (ICD-10) Surgical History (Updated 08/10/23 @ 04:38 by Warren Banegas) H/O: hysterectomy ?Z90.710 - Acquired absence of both cervix and uterus (ICD-10) Family History (Updated 08/10/23 @ 04:41 by Warren Banegas) Sister Family history of CHF (congestive heart failure) Family history of diabetes mellitus Mother Family history of cancer Daughter Family history of stroke Social History (Updated 08/10/23 @ 04:47 by Warren Banegas) Within the past year, how often did you have a drink containing alcohol: never Within the past year, how often did you have six or more drinks on one occasion: never Score interpretation: A score less than 3 is consistent with normal alcohol consumption. 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 Little interest or pleasure in doing things: not at all Feeling down, depressed, or hopeless: not at all Feel stressed/tense/nervous/anxious/difficulty sleeping: not at all Life stressors: recent of family or friend Life stressor details: sister just Due to disability, difficulty making decisions: No Do you think of yourself as: straight/heterosexual Gender Identity: female Exam Constitutional Vital Signs, click to edit/add: Last Vital Signs Temp 98.6 F 09/17/24 03:32 Resp 18 09/17/24 03:32 Pulse Ox 98 09/17/24 03:32 O2 Del Method Room Air 09/17/24 03:32 Common normals: no apparent distress, average body habitus, oriented x3, no limitations, healthy appearing, alert and well nourished [facility] Common normals: normocephalic and head/scalp atraumatic Respiratory Common normals: normal respiratory effort, no retractions, no use of accessory muscles and clear to auscultation bilaterally Cardio Common normals: regular rate, regular rhythm, S1 normal heart sound and S2 normal heart sound GI Other: gen. nonspecific mild-mod tenderness. no guarding Extremity Common normals: normal to inspection and full ROM Neuro Common normals: oriented x3, CN's II-XII intact bilaterally, moves all extremities and no focal motor deficits Psych Appearance: grossly normal Course Vital Signs Vital signs: Vital Signs Temperature 98.6 F 09/17/24 03:32 Respiratory Rate 18 09/17/24 03:32 Pulse Oximetry 98 09/17/24 03:32 Oxygen Delivery Method Room Air 09/17/24 03:32 Temperature 98.6 F 09/17/24 03:32 Respiratory Rate 18 09/17/24 03:32 Pulse Oximetry 98 09/17/24 03:32 Oxygen Delivery Method Room Air 09/17/24 03:32 MDM - Abdominal Pain MDM Narrative Medical decision making narrative: patient presents complaining of diarrhea and abdominal pain. She was seen here in the ED 3-4 days ago for same. She returned this AM with stool sample. Abdomen with gen. mild-mod tenderness. No guarding. CT abdomen negative. labs pending at change of shift . Care transferred to oncoming physician to review labs and disposition the patient Imaging Data Abdominal x-ray: Radiologist's impression: ITS Impressions Abdomen/Pelvis CT 09/17/24 04:04 IMPRESSION: 1. No acute or suspicious findings to account for patient's symptoms. Electronically authenticated by: IVY PASCUAL Date: 09/17/2024 05:55 Discharge Plan Discharge Chief Complaint: Abdominal Pain Clinical Impression: Diarrhea, Abdominal pain Patient Disposition: Still a Patient Prescriptions / Home Meds: No Action Linzess 72 mcg capsule 72 mcg PO DAILY lisinopril 10 mg tablet 10 mg PO DAILY omeprazole 40 mg capsule,delayed release(DR/EC) 40 mg PO DAILY ropinirole 1 mg tablet 1 mg PO DAILY simvastatin 20 mg tablet 20 mg PO DAILY aspirin [Adult Aspirin Regimen] 81 mg tablet,delayed release (DR/EC) 81 mg PO DAILY Print Language: Bahamian Referrals: JAS KUMAR [Primary Care Provider] - 1 week
--- NOTE | 2024-09-17 04:04 | CT_ITS ---
[address] [address] Patient Name: NORY BERG MRN: [id number] date: 1935 Sex: F Assigned Patient Location: ER Current Patient Location: ER Accession/Order Number: [id number] Exam Date: 09/17/2024 05:16 Report Date: 09/17/2024 05:55 At the request of: BENNY TURNER Procedure: CT abdomen pelvis w con EXAMINATION: CT abdomen pelvis w con HISTORY: abdominal pain/diarrhea COMPARISON: CT abdomen pelvis 08/16/2020 TECHNIQUE: Axial, Coronal, and Sagittal images were obtained without and/or with IV contrast as indicated by examination type. Dose reduction techniques were achieved by using automated exposure control and/or adjustment of mA and/or kV according to patient size and/or use of iterative reconstruction technique. FINDINGS: LUNG BASES: No visible pulmonary or pleural disease. LIVER: Area of early enhancement within posterior right hepatic lobe compatible with a flash fill hemangioma. No enlargement, atrophy, suspicious density, or significant focal lesion. BILIARY: No dilatation or calcification. PANCREAS: No lesion, fluid collection, or abnormal duct dilatation. SPLEEN: No enlargement or focal lesion. ADRENALS: No mass or enlargement. KIDNEYS: Small benign-appearing cyst bilaterally. No mass, obstruction, or calcification. BOWEL/MESENTERY: No visible mass, obstruction, or bowel wall thickening. AORTA/VASCULAR: No aneurysm or dissection. RETROPERITONEUM: No mass or adenopathy. LYMPH NODES: No adenopathy. URINARY BLADDER: No visible focal wall thickening, lesion, or calculus. PELVIC ORGANS: Hysterectomy. ABDOMINAL WALL: No mass or hernia. BONES: No bony lesion or fracture. OTHER: Negative. CT/CT abdomen pelvis w con IMPRESSION: 1. No acute or suspicious findings to account for patient's symptoms. Electronically authenticated by: IVY PASCUAL Date: 09/17/2024 05:55
--- NOTE | 2024-09-17 05:32 | PC.NURSE ---
Stool specimen to lab. Pt collected this at home this AM and brought this in with home order. Lab states this will be resulted on Thursday09/19/24. Hoof Trimmer informed pt and daughter of result time frame--they verbalized understanding.
--- NOTE | 2024-09-17 06:01 | PC.NURSE ---
After several attempts from staff to draw blood, lab made aware and the buffing wheel former machine will be in to draw her at around 0600.
--- NOTE | 2024-09-17 06:22 | PC.NURSE ---
Corporate Receptionist unable to obtain blood. Another fiber technician will be in to try.
[2024-09-17 07:08] VITALS: BP 118/0; PULSE 90; O2SAT 98
[2024-09-17 07:09] LABS: Basophils Percent Auto 0.4 % (0.2-2.0); Eosinophils Absolute Auto 0.1 10^3/uL (0.0-0.7); Eosinophils Percent Auto 0.8 % (0.9-7.0); Hematocrit 42.7 % (36.0-48.0); Immature Granulocytes Abs Auto 0.05 10^3/uL (0.00-0.03); Immature Granulocytes Pct Auto 0.6 % (0.0-0.5); Lymphocytes Absolute Auto 2.6 10^3/uL (1.2-3.8); Lymphocytes Percent Auto 32.9 % (20.5-60.0); Mean Corpuscular HGB Conc 32.8 g/dL (29.9-35.2); Mean Corpuscular Hemoglobin 31.1 pg (26.7-34.0); Mean Corpuscular Volume 94.9 fL (81.0-99.0); Mean Platelet Volume 9.5 fL (9.5-13.5); Monocytes Absolute Auto 0.9 10^3/uL (0.3-0.8); Monocytes Percent Auto 11.1 % (1.7-12.0); Neutrophils Absolute Auto 4.2 10^3/uL (1.4-6.5); Neutrophils Percent Auto 54.2 % (43.0-75.0); Platelet Count 197 10^3/uL (150-450); Red Cell Distribution Width 12.1 % (11.0-15.0); White Blood Count 7.8 10^3/uL (4.0-11.0)
[2024-09-17 07:20] LABS: BUN Creatinine Ratio 16.2; Calcium 8.9 mg/dL (8.5-10.1); Carbon Dioxide 25.7 mmol/L (21.0-32.0); Chloride 105 mmol/L (98-107); Estimated GFR (African America >60 (>=60 mL/min/1.73m^2); Estimated GFR (Non-African Ame >60 (>=60 mL/min/1.73m^2); Glucose 77 mg/dL (74-106); Potassium 3.7 mmol/L (3.5-5.1); Sodium 142 mmol/L (136-145)
--- NOTE | 2024-09-17 07:44 | ED.ABDPAIN1 ---
HPI - Abdominal Pain General Chief Complaint: Abdominal Pain Stated Complaint: ABD PAIN Time Seen by Provider: 09/17/24 03:48 Source: patient Mode of arrival: Wheelchair Limitations: no limitations History of Present Illness HPI narrative: 89-year-old female presents to the emergency department and was initially seen by Dr. Hui and signed out to me after discussing the case with him thoroughly. Please see his full history and physical exam. Related Data Home Medications ?Medication ?Instructions ?Recorded ?Confirmed aspirin 81 mg tablet,delayed 81 mg PO DAILY 06/30/23 09/17/24 release (Adult Aspirin Regimen) linaclotide 72 mcg capsule 72 mcg PO DAILY 06/30/23 06/30/23 (Linzess) lisinopril 10 mg tablet 10 mg PO DAILY 06/30/23 09/17/24 omeprazole 40 mg capsule,delayed 40 mg PO DAILY 06/30/23 09/17/24 release ropinirole 1 mg tablet 1 mg PO DAILY 06/30/23 09/17/24 simvastatin 20 mg tablet 20 mg PO DAILY 06/30/23 09/17/24 Allergies Allergy/AdvReac Type Severity Reaction Status Date / Time No Known Drug Allergies Allergy Verified 09/17/24 03:34 [facility] Medical History (Updated 09/17/24 @ 06:51 by Ravi Hui MD) 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, unspecified (ICD-10) Heel spur ?M77.30 - Calcaneal spur, unspecified foot (ICD-10) Left leg pain ?M79.605 - Pain in left leg (ICD-10) 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 ?R26.2 - Difficulty in walking, not elsewhere classified (ICD-10) Surgical History (Updated 08/10/23 @ 04:38 by Warren Banegas) H/O: hysterectomy ?Z90.710 - Acquired absence of both cervix and uterus (ICD-10) Family History (Updated 08/10/23 @ 04:41 by Warren Banegas) Sister Family history of CHF (congestive heart failure) Family history of diabetes mellitus Mother Family history of cancer Daughter Family history of stroke Social History (Updated 08/10/23 @ 04:47 by Warren Banegas) Within the past year, how often did you have a drink containing alcohol: never Within the past year, how often did you have six or more drinks on one occasion: never Score interpretation: A score less than 3 is consistent with normal alcohol consumption. 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 Little interest or pleasure in doing things: not at all Feeling down, depressed, or hopeless: not at all Feel stressed/tense/nervous/anxious/difficulty sleeping: not at all Life stressors: recent of family or friend Life stressor details: sister just Due to disability, difficulty making decisions: No Do you think of yourself as: straight/heterosexual Gender Identity: female Exam Constitutional Vital Signs, click to edit/add: Last Vital Signs Temp 98.6 F 09/17/24 03:32 Pulse 90 09/17/24 07:08 Resp 18 09/17/24 07:08 BP 118/0 L 09/17/24 07:08 Pulse Ox 98 09/17/24 07:08 O2 Del Method Room Air 09/17/24 03:32 Course Vital Signs Vital signs: Vital Signs Temperature 98.6 F 09/17/24 03:32 Respiratory Rate 18 09/17/24 03:32 Pulse Oximetry 98 09/17/24 03:32 Oxygen Delivery Method Room Air 09/17/24 03:32 Temperature 98.6 F 09/17/24 03:32 Pulse Rate 90 09/17/24 07:08 Respiratory Rate 18 09/17/24 07:08 Blood Pressure 118/0 L 09/17/24 07:08 Pulse Oximetry 98 09/17/24 07:08 Oxygen Delivery Method Room Air 09/17/24 03:32 MDM - Abdominal Pain MDM Narrative Medical decision making narrative: Blood work is essentially normal and CAT scan is negative. Stool studies are pending and she is able to be discharged home. Treatment diagnosis and follow-up were discussed with the patient. Differential Diagnosis Differential diagnosis: Likely abdominal pain, gastroenteritis and other (Food poisoning, diarrhea) Lab Data Attestation: I reviewed the patient's lab results. Labs: Lab Results 09/17/24 Range/Units 07:05 WBC 7.8 (4.0-11.0) 10^3/uL RBC 4.50 (4.20-5.40) 10^6/uL Hgb 14.0 (12.0-16.0) g/dL Hct 42.7 (36.0-48.0) % MCV 94.9 (81.0-99.0) fL MCH 31.1 (26.7-34.0) pg MCHC 32.8 (29.9-35.2) g/dL RDW 12.1 (11.0-15.0) % Plt Count 197 (150-450) 10^3/uL MPV 9.5 (9.5-13.5) fL Neut % (Auto) 54.2 (43.0-75.0) % Lymph % (Auto) 32.9 (20.5-60.0) % [place] % (Auto) 11.1 (1.7-12.0) % Eos % (Auto) 0.8 L (0.9-7.0) % Baso % (Auto) 0.4 (0.2-2.0) % Neut # (Auto) 4.2 (1.4-6.5) 10^3/uL Lymph # (Auto) 2.6 (1.2-3.8) 10^3/uL [place] # (Auto) 0.9 H (0.3-0.8) 10^3/uL Eos # (Auto) 0.1 (0.0-0.7) 10^3/uL Baso # (Auto) 0.0 (0.0-0.1) 10^3/uL Abs Immat Gran (auto) 0.05 H (0.00-0.03) 10^3/uL Imm/Tot Granulo (auto) 0.6 H (0.0-0.5) % Sodium 142 (136-145) mmol/L Potassium 3.7 (3.5-5.1) mmol/L Chloride 105 (98-107) mmol/L Carbon Dioxide 25.7 (21.0-32.0) mmol/L Anion Gap 15.0 BUN 13.0 (7.0-18.0) mg/dL Creatinine 0.80 (0.55-1.02) mg/dL Est GFR ( Amer) >60 (>=60 mL/min/1.73m^2) Est GFR (Non-Af Amer) >60 (>=60 mL/min/1.73m^2) BUN/Creatinine Ratio 16.2 Glucose 77 (74-106) mg/dL Calcium 8.9 (8.5-10.1) mg/dL Imaging Data CT scan - abdomen: Radiologist's impression: ITS Impressions Abdomen/Pelvis CT 09/17/24 04:04 IMPRESSION: 1. No acute or suspicious findings to account for patient's symptoms. Electronically authenticated by: IVY PASCUAL Date: 09/17/2024 05:55 Discharge Plan Discharge Chief Complaint: Abdominal Pain Clinical Impression: Diarrhea, Abdominal pain Patient Disposition: Home, Self-Care Time of Disposition Decision: 07:40 Condition: Good Mode of Transportation: Private Vehicle Prescriptions / Home Meds: No Action Linzess 72 mcg capsule 72 mcg PO DAILY lisinopril 10 mg tablet 10 mg PO DAILY omeprazole 40 mg capsule,delayed release(DR/EC) 40 mg PO DAILY ropinirole 1 mg tablet 1 mg PO DAILY simvastatin 20 mg tablet 20 mg PO DAILY aspirin [Adult Aspirin Regimen] 81 mg tablet,delayed release (DR/EC) 81 mg PO DAILY Print Language: Croatian Instructions: Acute Diarrhea (ED), Abdominal Pain (ED) Referrals: JAS KUMAR [Primary Care Provider] - 1 week
[2024-09-17 13:03] LABS: C. Difficile PCR NEGATIVE
[2024-09-19 14:10] LABS: Cryptosporidium EIA Negative (Negative); Giardia lamblia Ag, EIA Negative (Negative)
[2024-09-20 15:10] LABS: Ova + Parasite Exam Final report (.)
== END 2024-09-17 07:54 | disposition home or self-care (01) ==
PROVIDERS: Internal Medicine; Emergency Provider Emergency Medicine
DX: R19.7 Diarrhea, unspecified (principal); R10.9 Unspecified abdominal pain; Z90.710 Acquired absence of both cervix and uterus; Z63.4 Disappearance and death of family member
CPT/HCPCS: 36415; 74177; 80048; 83605; 85025; 87045; 87046; 87177; 87209; 87427; 87493; 99284; Q9967

== ENCOUNTER 2024-11-25 09:00 | Outpatient (OUT) | payer MEDICARE, SELFPAY ==
--- OUTSIDE RECORDS SUMMARY | 2024-11-25 09:15 | XMS_ITS | CCD ---
Author Organization [facility] Care Team Providers Care 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 Name Role Phone DEMI ., DR LINDSAY Primary Care Unavailable HOY ., DR LINDSAY Admitting Unavailable HOY ., DR LINDSAY Attending Unavailable HOY ., DR LINDSAY Primary Care Unavailable REINECK, DR SHANIQUE Weber Attending Unavailabl e REINECK, DR SHANIQUE Weber Consulting Unavailabl e REINECK, DR SHANIQUE Weber Admitting Unavailabl e ANKUR, [...] Unavailable Angélica Simms MD Primary Care Provider [phone] JOAO CHEEMA Attending Unavailable JOAO CHEEMA Attending Unavailable JOAO CHEEMA Attending Unavailable JOAO CHEEMA Attending Unavailable JOAO CHEEMA Attending Unavailable JOAO CHEEMA Attending Unavailable JOAO CHEEMA Referring Unavailable JOAO CHEEMA Attending Unavailable Allergies Allergy Classification Reported Allergen(s) Allergy Type Date of Onset Reaction(s) Facility (1 source) Chocolate Drug allergy (disorder) [facility] (1 source) piperazine Drug Allergy [facility] Medications Current Medications Medication Drug Class(es) Dates Sig (Normalized) Sig (Original) aspirin 81 mg delayed release oral tablet (13 sources) Platelet Aggregation Inhibitor, Nonsteroidal Anti-inflammatory Drug take 1 tablet by mouth once daily aspirin 81 MG EC tablet Take 81 mg by mouth Daily Active azithromycin 250 mg oral tablet (2 sources) Macrolide Antimicrobial Start: 06-30-2024 End: 07-05-2024 take 1 tablet by mouth once daily azithromycin (Zithromax Z-Orberto) 250 MG tablet Indications: Onychocryptosis Take 1 tablet (250 mg) by mouth Daily for 5 days Use as directed 6 tablet 06/30/2024 07/05/2024 Active calcium carbonate 1500 mg oral tablet (13 sources) take 1 tablet by mouth in the morning calcium carbonate (Super Calcium) 1500 (600 Ca) MG tablet Take 1,500 mg by mouth in the morning and 1,500 mg in the evening. Take with meals. Active omeprazole 40 mg delayed release oral capsule (13 sources) Proton Pump Inhibitor Start: 01-22-2024 omeprazole (PriLOSEC) [address] capsule 01/22/2024 Active simvastatin 20 mg oral tablet (13 sources) HMG-CoA Reductase Inhibitor Start: 01-22-2024 simvastatin (Zocor) 20 MG tablet 01/22/2024 Active Problems Active Problems Problem Classification Problem Date Documented Da te Episodic/Chronic Acquired foot deformities (6 sources) Hallux valgus (acquired), left foot; 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: [Hallux valgus (acquired)] 08-25-2024 Chronic Cancer of uterus (1 source) Personal history of malignant neoplasm of other parts of uterus; 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: [PERS HX MAL NEOPLSM OT [facility]] Onset: 03-11-2023 Episodic Congestive heart failure; nonhypertensive [...] DISEASE W/HEART FAIL] Onset: 10-04-2022 Chronic Mycoses (4 sources) Pain in toe; 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: [Tinea unguium] 08-25-2024 [...] ankle] 08-25-2024 Chronic Other aftercare (1 source) 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; 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: [CUSTODIAL CURRENT USE OF ASPIRIN] Onset: 03-11-2023 Episodic Other aftercare (1 source) Other informatics educator (current) drug therapy; 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: [OTH IMPLEMENTATION ARCHITECT CURRENT DRUG THERAPY] Onset: 03-11-2023 Episodic Other connective tissue disease (6 sources) Pain of toes of bilateral feet; 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: [Pain in right toe(s)] 06-30-2024 Episodic Other hereditary and degenerative nervous system conditions (1 source) Extrapyramidal and movement disorder, unspecified; 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: [EXTRAPYRAMIDAL MOVEMNT DISORDER UNS] Onset: 10-04-2022 Chronic Other non-epithelial cancer of skin (1 source) Personal history of other malignant neoplasm of skin; 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: [PERSONAL HX OTH MALIG NEOPLASM SKIN] Onset: 03-11-2023 Episodic Other skin disorders (6 sources) Ingrowing nail; 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: [Ingrowing nail] 06-30-2024 Episodic Peripheral and visceral atherosclerosis (3 sources) Peripheral vascular disease; 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: [Peripheral vascular disease, unspecified] 06-30-2024 Chronic Residual codes; unclassified (1 source) Acquired absence [...] INVLV CIRC RS] Onset: 06-26-2022 Episodic Other connective tissue disease (2 sources) Pain of toe of left foot; 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: [Pain in left toe(s)] 06-30-2024 Episodic Other connective tissue disease (2 sources) Pain of toe of right foot; 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: [Pain in right toe(s)] 06-30-2024 Episodic Other gastrointestinal disorders (4 sources) Constipation, unspecified; 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: [CONSTIPATION UNSPECIFIED] Onset: 09-29-2022 Episodic Unclassified (1 source) CONTACT W/AND (SUSP) EXPOS COVID-19; 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: [CONTACT W/AND (SUSP) EXPOS COVID-19] Onset: 06-25-2022 Results Test Name Value Interpretation Reference Range Facility CBC AUTO DIFFon 03-10-2023 BASO # 0.0 103/ul Normal 0.0-0.1 [facility] Comment on above: Performed By: #### A 1C #### [facility] [address] [place] [address] Dr. Salinas Tsang Basophils/100 WBC (Bld) 0.3 % Normal 0.2-2.0 [facility] Comment on above: Performed By: #### A 1C #### [facility] [address] [place] [address] Dr. Salinas Tsang EO # 0.1 103/ul Normal 0.0-0.7 [facility] Comment on above: Performed By: #### A 1C #### [facility] [address] [place] [address] Dr. Salinas Tsang Eosinophils/100 WBC (Bld) 1.7 % Normal 0.9-7.0 [facility] Comment on above: Performed By: #### A 1C #### [facility] [address] [place] [address] Dr. Salinas Tsang Erythrocyte distribution width (RBC) [Ratio] 12.4 % Normal 11.0-15.0 [facility] Comment on above: Performed By: #### A 1C #### [facility] [address] [place] [address] Dr. Salinas Tsang Hematocrit (Bld) [Volume fraction] 40.3 % Normal 36.0-48.0 [facility] Comment on above: Performed By: #### A 1C #### [facility] [address] [place] [address] Dr. Salinas Tsang Hemoglobin (Bld) [Mass/Vol] 13.3 g/dL Normal 12.0-16.0 [facility] Comment on above: Performed By: #### A 1C #### [facility] [address] [place] [address] Dr. Salinas Tsang IG # 0.01 10e3/ul Normal 0.00-0.03 [facility] Comment on above: Performed By: #### A 1C #### [facility] [address] [place] [address] Dr. Salinas Tsang IG % 0.1 % Normal 0.0-0.5 [facility] Comment on above: Performed By: #### A 1C #### [facility] [address] [place] [address] Dr. Salinas Tsang LYMPH # 1.9 103/ul Normal 1.2-3.8 [facility] Comment on above: Performed By: #### A 1C #### [facility] [address] [place] [address] Dr. Salinas Tsang Lymphocytes/100 WBC (Bld) 27.4 % Normal 20.5-60.0 [facility] Comment on above: Performed By: #### A 1C #### [facility] [address] [place] [address] Dr. Salinas Tsang MANUAL DIFF REQ NO Normal [facility] Comment on above: Performed By: #### A 1C #### [facility] [address] [address] [address] Salinas Tsang MCH (RBC) [Entitic mass] 31.2 pg Normal 26.7-34.0 [facility] Comment on above: Performed By: #### A 1C #### [facility] [address] [place] [address] Dr. Salinas Tsang MCHC (RBC) [Mass/Vol] 33.0 g/dL Normal 29.9-35.2 [facility] Comment on above: Performed By: #### A 1C #### [facility] [address] [place] [address] Dr. Salinas Tsang MCV (RBC) [Entitic vol] 94.6 fL Normal 81.0-99.0 [facility] Comment on above: Performed By: #### A 1C #### [facility] [address] [place] [address] Dr. Salinas Tsang MONO # 0.8 103/ul Normal 0.3-0.8 [facility] Comment on above: Performed By: #### A 1C #### [facility] [address] [place] [address] Dr. Salinas Tsang Monocytes/100 WBC (Bld) 12.1 % Critically high 1.7-12.0 [facility] Comment on above: Performed By: #### A 1C #### [facility] [address] [place] [address] Dr. Salinas Tsang NEUT # 4.0 103/ul Normal 1.4-6.5 [facility] Comment on above: Performed By: #### A 1C #### [facility] [address] [place] [address] Dr. Salinas Tsang Neutrophils/100 WBC (Bld) 58.4 % Normal 43.0-75.0 [facility] Comment on above: Performed By: #### A 1C #### [facility] [address] [place] [address] Dr. Salinas Tsang Platelet mean volume (Bld) [Entitic vol] 9.8 fL Normal 9.5-13.5 [facility] Comment on above: Performed By: #### A 1C #### [facility] [address] [place] [address] Dr. Salinas Tsang PLT 205 103/ul Normal 150-450 [facility] Comment on above: Performed By: #### A 1C #### [facility] [address] [place] [address] Dr. Salinas Tsang RBC 4.26 106/ul Normal 4.20-5.40 [facility] Comment on above: Performed By: #### A 1C #### [facility] [address] [place] [address] Dr. Salinas Tsang WBC 6.9 103/ul Normal 4.0-11.0 [facility] Comment on above: Performed By: #### A 1C #### [facility] [address] [place] [address] Dr. Salinas Tsang PROF 14(COMP METB)on 023 Albumin [Mass/Vol] 3.2 g/dL Critically low 3.4-5.0 [facility] Comment on above: Performed By: #### C HELENA HSTROPN #### [facility] [address] [place] [address] Dr. Salinas Tsang Albumin/Globulin [Mass ratio] 0.9 {ratio} Normal [facility] Comment on above: Performed By: #### C HELENA, HSTROPN #### [facility] [address] [place] [address] Dr. Salinas Tsang ALP [Catalytic activity/Vol] 75 U/L Normal 46-116 [facility] Comment on above: Performed By: #### C MP, HSTROPN #### [facility] [address] [place] [address] Dr. Salinas Tsang ALT [Catalytic activity/Vol] 19 U/L Normal 14-59 [facility] Comment on above: Performed By: #### C MP, HSTROPN #### [facility] [address] [place] [address] Dr. Salinas Tsang Anion gap [Moles/Vol] 12.2 mmol/L Normal [facility] Comment on above: Performed By: #### C HELENA, HSTROPN #### [facility] [address] [place] [address] Dr. Salinas Tsang AST [Catalytic activity/Vol] 23 U/L Normal 15-37 [facility] Comment on above: Performed By: #### C HELENA, HSTROPN #### [facility] [address] [place] [address] Dr. Salinas Tsang Bilirubin [Mass/Vol] 0.2 mg/dL Normal 0.2-1.0 [facility] Comment on above: Performed By: #### C HELNEA, HSTROPN #### [facility] [address] [place] [address] Dr. Salinas Tsang Calcium [Mass/Vol] 9.2 mg/dL Normal 8.5-10.1 [facility] Comment on above: Performed By: #### C HELENA, HSTROPN #### [facility] [address] [place] [address] Dr. Salinas Tsang Chloride [Moles/Vol] 106 mmol/L Normal 98-107 [facility] Comment on above: Performed By: #### C HELENA, HSTROPN #### [facility] [address] [place] [address] Dr. Salinas Tsang CO2 [Moles/Vol] 27.8 mmol/L Normal 21.0-32.0 [facility] Comment on above: Performed By: #### C HELENA, HSTROPN #### [facility] [address] [place] [address] Dr. Salinas Tsang Creatinine [Mass/Vol] 0.71 mg/dL Normal 0.55-1.02 [facility] Comment on above: Performed By: #### C HELENA, HSTROPN #### [facility] [address] [place] [address] Dr. Salinas Tsang EGFR-AF GUATEMALAN >60 Normal >=60 [facility] Comment on above: Performed By: #### C HELENA, HSTROPN #### [facility] [address] [place] [address] Dr. Salinas Tsang EGFR-NON AF GUATEMALAN >60 Normal >=60 [facility] Comment on above: Performed By: #### C HELENA, HSTROPN #### [facility] [address] [address] [address] Salinas Tsang Globulin (S) [Mass/Vol] 3.5 g/dL Normal [facility] Comment on above: Performed By: #### C HELENA, HSTROPN #### [facility] [address] [address] [address] Salinas Tsang Glucose [Mass/Vol] 92 mg/dL Normal 74-106 [facility] Comment on above: Performed By: #### C HELENA, HSTROPN #### [facility] [address] [address] [address] Salinas Tsang Potassium [Moles/Vol] 4.0 mmol/L Normal 3.5-5.1 [facility] Comment on above: Performed By: #### C HELENA, HSTROPN #### [facility] [address] [address] [address] Salinas Tsang Protein [Mass/Vol] 6.7 g/dL Normal 6.4-8.2 [facility] Comment on above: Performed By: #### C HELENA, HSTROPN #### [facility] [address] [address] [address] Salinas Tsang Sodium [Moles/Vol] 142 mmol/L Normal 136-145 [facility] Comment on above: Performed By: #### C HELENA, HSTROPN #### [facility] [address] [address] [address] Salinas Tsang Urea nitrogen [Mass/Vol] 17.0 mg/dL Normal 7.0-18.0 [facility] Comment on above: Performed By: #### C HELENA, HSTROPN #### [facility] [address] [address] [address] Salinas Tsang Urea nitrogen/Creatinine [Mass ratio] 23.9 mg/mg Normal [facility] Comment on above: Performed By: #### C HELENA, HSTROPN #### [facility] [address] [place] [address] Dr. Salinas Tsang PROTIMEon 03-10-2023 INR Coag (PPP) [Relative time] 0.99 {INR} Normal [facility] Comment on above: Performed By: #### P TT, PT #### [facility] [address] [place] [address] Dr. Salinas Tsang INR GUIDELINES SEE BELOW Normal [facility] Comment on above: Result Comment: KARIN RED INR: 2.0 - 3.0 CONDITIONS NOT LISTED BELOW 2.5 - 3.5 FOR PROSTHETIC HEART VALVE REPLACEMENT 2.5 - 3.5 RECURRENT THROMBOSIS Performed By: #### P TT, PT #### [facility] [address] [place] [address] Dr. Salinas Tsang PT Coag (PPP) [Time] 10.5 s Normal 9.0-11.6 [facility] Comment on above: Performed By: #### P TT, PT #### [facility] [address] [place] [address] Dr. Salinas Tsang PTTon 03-10-2023 aPTT Coag (Bld) [Time] 23.1 s Normal 22.3-36.2 [facility] Comment on above: Performed By: #### A 1C #### [facility] [address] [place] [address] Dr. Salians Tsang TROPONIN, HIGH SENSITIVITYon 03-10-2023 HSTROP 7.0 pg/mL Normal 4.0-51.3 [facility] Comment on above: Result Comment: CUT- OFF POINTS HAVE BEEN ESTABLISHED BASED ON THE FOURTH UNIVERSAL DEFINITIONS OF MYOCARDIAL INFARCTION. THE UPPER REFERENCE LIMIT (URL) OF TROPONIN, DEFINED THE 99TH PERCENTILE OF cTnI DISTRIBUTION IN A REFERENCE POPULATION, HAS BEEN CONFIRMED THE DECISION THRESHOLD FOR [place] DIAGNOSIS. Performed By: #### H STROPN #### [facility] [address] [place] [address] Dr. Salinas Tsang HSTROP 6.5 pg/mL Normal 4.0-51.3 [facility] Comment on above: Result Comment: CUT- OFF POINTS HAVE BEEN ESTABLISHED BASED ON THE FOURTH UNIVERSAL DEFINITIONS OF MYOCARDIAL INFARCTION. THE UPPER REFERENCE LIMIT (URL) OF TROPONIN, DEFINED THE 99TH PERCENTILE OF cTnI DISTRIBUTION IN A REFERENCE POPULATION, HAS BEEN CONFIRMED THE DECISION THRESHOLD FOR FL DIAGNOSIS. Performed By: #### C MP, HSTROPN #### [facility] [address] [place] [address] Dr. Salinas Tsang XR CHEST 1 Von [...] IVY PASCUAL Date: 2023-03-10 09:59 Normal [facility] INSULINon 09-30-2022 Insulin 22.0 uIU/mL Normal 2.6-24.9 [facility] Comment on above: Performed By: #### I NSULIN #### [facility] [address] [place] [address] Dr. Salinas Tsang BNPon 09-29-2022 Natriuretic peptide B (Bld) [Mass/Vol] 96.0 pg/mL Normal <=1,800.0 [facility] Comment on above: Performed By: #### A 1C #### [facility] [address] [place] [address] Dr. Salinas Tsang CBC AUTO DIFFon 09-29-2022 BASO # 0.0 103/ul Normal 0.0-0.1 [facility] Comment on above: Performed By: #### C BC #### [facility] [address] [place] [address] Dr. Salinas Tsang Basophils/100 WBC (Bld) 0.1 % Critically low 0.2-2.0 [facility] Comment on above: Performed By: #### C BC #### [facility] [address] [place] [address] Dr. Salinas Tsang EO # 0.2 103/ul Normal 0.0-0.7 [facility] Comment on above: Performed By: #### C BC #### [facility] [address] [place] [address] Dr. Salinas Tsang Eosinophils/100 WBC (Bld) 2.1 % Normal 0.9-7.0 [facility] Comment on above: Performed By: #### C BC #### [facility] [address] [place] [address] Dr. Salinas Tsang Erythrocyte distribution width (RBC) [Ratio] 13.1 % Normal 11.0-15.0 [facility] Comment on above: Performed By: #### C BC #### [facility] [address] [place] [address] Dr. Salinas Tsang Hematocrit (Bld) [Volume fraction] 43.6 % Normal 36.0-48.0 [facility] Comment on above: Performed By: #### C BC #### [facility] [address] [place] [address] Dr. Salinas Tsang Hemoglobin (Bld) [Mass/Vol] 14.2 g/dL Normal 12.0-16.0 [facility] Comment on above: Performed By: #### C BC #### [facility] [address] [place] [address] Dr. Salinas Tsang IG # 0.02 10e3/ul Normal 0.00-0.03 [facility] Comment on above: Performed By: #### C BC #### [facility] [address] [place] [address] Dr. Salinas Tsang IG % 0.3 % Normal 0.0-0.5 [facility] Comment on above: Performed By: #### C BC #### [facility] [address] [place] [address] Dr. Salinas Tsang LYMPH # 2.6 103/ul Normal 1.2-3.8 [facility] Comment on above: Performed By: #### C BC #### [facility] [address] [place] [address] Dr. Salinas Tsang Lymphocytes/100 WBC (Bld) 36.8 % Normal 20.5-60.0 [facility] Comment on above: Performed By: #### C BC #### [facility] [address] [place] [address] Dr. Salinas Tsang MANUAL DIFF REQ NO Normal [facility] Comment on above: Performed By: #### C BC #### [facility] [address] [place] [address] Dr. Salinas Tsang MCH (RBC) [Entitic mass] 30.4 pg Normal 26.7-34.0 [facility] Comment on above: Performed By: #### C BC #### [facility] [address] [place] [address] Dr. Salinas Tsang MCHC (RBC) [Mass/Vol] 32.6 g/dL Normal 29.9-35.2 [facility] Comment on above: Performed By: #### C BC #### [facility] [address] [place] [address] Dr. Salinas Tsang MCV (RBC) [Entitic vol] 93.4 fL Normal 81.0-99.0 [facility] Comment on above: Performed By: #### C BC #### [facility] [address] [place] [address] Dr. Salinas Tsang MONO # 0.6 103/ul Normal 0.3-0.8 [facility] Comment on above: Performed By: #### C BC #### [facility] [address] [place] [address] Dr. Salinas Tsang Monocytes/100 WBC (Bld) 8.8 % Normal 1.7-12.0 [facility] Comment on above: Performed By: #### C BC #### [facility] [address] [place] [address] Dr. Salinas Tsang NEUT # 3.7 103/ul Normal 1.4-6.5 [facility] Comment on above: Performed By: #### C BC #### [facility] [address] [place] [address] Dr. Salinas Tsang Neutrophils/100 WBC (Bld) 51.9 % Normal 43.0-75.0 [facility] Comment on above: Performed By: #### C BC #### [facility] [address] [place] [address] Dr. Salinas Tsang Platelet mean volume (Bld) [Entitic vol] 9.5 fL Normal 9.5-13.5 [facility] Comment on above: Performed By: #### C BC #### [facility] [address] [place] [address] Dr. Salinas Tsang PLT 194 103/ul Normal 150-450 [facility] Comment on above: Performed By: #### C BC #### [facility] [address] [place] [address] Dr. Salinas Tsang RBC 4.67 106/ul Normal 4.20-5.40 [facility] Comment on above: Performed By: #### C BC #### [facility] [address] [place] [address] Dr. Salinas Tsang WBC 7.1 103/ul Normal 4.0-11.0 [facility] Comment on above: Performed By: #### C BC #### [facility] [address] [place] [address] Dr. Salinas Tsang FREE THYROXINE INDEX T7on FTI 2.28 Normal 1.30-4.50 [facility] Comment on above: Performed By: #### A 1C #### [facility] [address] [place] [address] Dr. Salinas Tsang T3U 34.0 % Normal 30.0-39.0 [facility] Comment on above: Performed By: #### A 1C #### [facility] [address] [place] [address] Dr. Salinas Tsang T4 [Mass/Vol] 6.70 ug/dL Normal 4.80-13.90 [facility] Comment on above: Performed By: #### A 1C #### [facility] [address] [place] [address] Dr. Salinas Tsang GLYCOHEMOGLOBIN A1Con 2021 ADA RECOMMENDATION SEE BELOW Normal [facility] Comment on above: Result Comment: ADA RECOMMENDED LIMIT 4.0 - 6.0 ADA THERAPEUTIC TARGET < 7.0 ACTION SUGGESTED > 7.0 Performed By: #### A 1C #### [facility] [address] [place] [address] Dr. Salinas Tsang Glucose [Mass/Vol] 105 mg/dL Normal [facility] Comment on above: Performed By: #### A 1C #### [facility] [address] [place] [address] Dr. Salinas Tsang HbA1c (Bld) [Mass fraction] 5.3 % Normal 4.5-6.2 [facility] Comment on above: Performed By: #### A 1C #### [facility] [address] [place] [address] Dr. Salinas Tsang IRONon 09-29-2022 Iron [Mass/Vol] 103.0 ug/dL Normal 50.0-170.0 [facility] Comment on above: Performed By: #### A 1C #### [facility] [address] [place] [address] Dr. Salinas Tsang LIPID PROFILEon 09-29-2022 CHOL-HDL RATIO NORM SEE BELOW Normal [facility] Comment on above: Result Comment: 3.3 - 4.4 LOW RISK 4.4 - 7.1 AVERAGE RISK 7.1 - 11.0 MODERATE RISK >11.0 HIGH RISK Performed By: #### A 1C #### [facility] [address] [place] [address] Dr. Salinas Tsang Cholesterol [Mass/Vol] 143 mg/dL Normal <=200 [facility] Comment on above: Performed By: #### A 1C #### [facility] [address] [place] [address] Dr. Salinas Tsang Cholesterol in HDL [Mass/Vol] 39 mg/dL Critically low 40-60 [facility] Comment on above: Performed By: #### A 1C #### [facility] [address] [place] [address] Dr. Salinas Tsang Cholesterol in LDL [Mass/Vol] 75.4 mg/dL Normal [facility] Comment on above: Performed By: #### A 1C #### [facility] [address] [address] [address] Salinas Tsang Cholesterol.total/Ch olesterol in HDL [Mass ratio] 3.7 {ratio} Normal [facility] Comment on above: Performed By: #### A 1C #### [facility] [address] [address] [address] Salinas Tsang HDL NORMAL > or = 60 mg/dl - LOW CARDIOVASCULAR RISK <40 mg/dl - HIGH CARDIOVASCULAR RISK Normal [facility] Comment on above: Performed By: #### A 1C #### [facility] [address] [address] [address] Salinas Tsang LDL CALC NORMAL SEE BELOW Normal [facility] Comment on above: Result Comment: <100 mg/dl OPTIMAL 100 - 129 mg/dl NEAR OR ABOVE OPTIMAL 130 - 159 mg/dl BORDERLINE HIGH 160 - 189 mg/dl HIGH >190 mg/dl VERY HIGH Performed By: #### A 1C #### [facility] [address] [place] [address] Dr. Salinas Tsang Triglyceride [Mass/Vol] 143 mg/dL Normal <=150 [facility] Comment on above: Performed By: #### A 1C #### [facility] [address] [place] [address] Dr. Salinas Tsang VLDL CALC 28.6 mg/dL Normal [facility] Comment on above: Performed By: #### A 1C #### [facility] [address] [place] [address] Dr. Salinas Tsang PROF 14(COMP METB)on 022 Albumin [Mass/Vol] 3.5 g/dL Normal 3.4-5.0 [facility] Comment on above: Performed By: #### A 1C #### [facility] [address] [place] [address] Dr. Salinas Tsang Albumin/Globulin [Mass ratio] 1.0 {ratio} Normal [facility] Comment on above: Performed By: #### A 1C #### [facility] [address] [place] [address] Dr. Salinas Tsang ALP [Catalytic activity/Vol] 64 U/L Normal 46-116 [facility] Comment on above: Performed By: #### A 1C #### [facility] [address] [address] [address] Salinas Tsang ALT [Catalytic activity/Vol] 21 U/L Normal 14-59 [facility] Comment on above: Performed By: #### A 1C #### [facility] [address] [address] [address] Salinas Tsang Anion gap [Moles/Vol] 11.3 mmol/L Normal [facility] Comment on above: Performed By: #### A 1C #### [facility] [address] [address] [address] Salinas Tsang AST [Catalytic activity/Vol] 22 U/L Normal 15-37 [facility] Comment on above: Performed By: #### A 1C #### [facility] [address] [place] [address] Dr. Salinas Tsang Bilirubin [Mass/Vol] 0.4 mg/dL Normal 0.2-1.0 [facility] Comment on above: Performed By: #### A 1C #### [facility] [address] [address] [address] Salinas Tsang Calcium [Mass/Vol] 9.0 mg/dL Normal 8.5-10.1 [facility] Comment on above: Performed By: #### A 1C #### [facility] [address] [address] [address] Salinas Tsang Chloride [Moles/Vol] 106 mmol/L Normal 98-107 [facility] Comment on above: Performed By: #### A 1C #### [facility] [address] [address] [address] Salinas Tsang CO2 [Moles/Vol] 29.6 mmol/L Normal 21.0-32.0 [facility] Comment on above: Performed By: #### A 1C #### [facility] [address] [address] [address] Salinas Tsang Creatinine [Mass/Vol] 0.70 mg/dL Normal 0.55-1.02 [facility] Comment on above: Performed By: #### A 1C #### [facility] [address] [address] [address] Salinas Tsang EGFR-AF GUATEMALAN >60 Normal >=60 [facility] Comment on above: Performed By: #### A 1C #### [facility] [address] [address] [address] Salinas Tsang EGFR-NON AF GUATEMALAN >60 Normal >=60 [facility] Comment on above: Performed By: #### A 1C #### [facility] [address] [address] [address] Salinas Tsang Globulin (S) [Mass/Vol] 3.4 g/dL Normal [facility] Comment on above: Performed By: #### A 1C #### [facility] [address] [address] [address] Salinas Tsang Glucose [Mass/Vol] 98 mg/dL Normal 74-106 [facility] Comment on above: Performed By: #### A 1C #### [facility] [address] [address] [address] Salinas Tsang Potassium [Moles/Vol] 3.9 mmol/L Normal 3.5-5.1 [facility] Comment on above: Performed By: #### A 1C #### [facility] [address] [address] [address] Salinas Tsang Protein [Mass/Vol] 6.9 g/dL Normal 6.4-8.2 [facility] Comment on above: Performed By: #### A 1C #### [facility] [address] [address] [address] Salinas Tsang Sodium [Moles/Vol] 143 mmol/L Normal 136-145 [facility] Comment on above: Performed By: #### A 1C #### [facility] [address] [address] [address] Salinas Tsang Urea nitrogen [Mass/Vol] 16.0 mg/dL Normal 7.0-18.0 [facility] Comment on above: Performed By: #### A 1C #### [facility] [address] [place] [address] Dr. Salinas Tsang Urea nitrogen/Creatinine [Mass ratio] 22.9 mg/mg Normal [facility] Comment on above: Performed By: #### A 1C #### [facility] [address] [place] [address] Dr. Salinas Tsang TSHon 09-29-2022 TSH 1.484 uIU/mL Normal 0.358-3.740 [facility] Comment on above: Performed By: #### A 1C #### [facility] [address] [place] [address] Dr.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 Advanced Directives Records FoundNo Advanced Directives Records Found Additional Source Comments INFORMATION SOURCE (unrecogn ized section and content) DATE CREATED AUTHOR 03/11/2023 [facility] DATE CREATED AUTHOR AUTHOR'S ORGANIZ ATION 11/08/2024 [facility] Care Teams (unrecognized sec tion and content) 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 Relationship Specialty Start Date End Date Angélica Simms MD [address] [place] [address] PCP - General Family Medicine 03/03/24 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 Relationship Specialty Start Date End Date Angélica Simms MD [address] [place] [address] PCP - General Family Medicine 03/03/24 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 Relationship Specialty Start Date End Date Angélica Simms MD [address] [place] [address] PCP - General Family Medicine 03/03/24 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 Relationship Specialty Start Date End Date Angélica Simms MD [address] [place] [address] PCP - General Family Medicine 03/03/24 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 Relationship Specialty Start Date End Date Angélica Simms MD [address] [place] [address] PCP - General Family Medicine 03/03/24 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 Relationship Specialty Start Date End Date Angélica Simms MD [address] [place] [address] PCP - General Family Medicine 03/03/24 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 [facility]mo, [facility]. provides no warranty or guarantee of the accuracy or completeness of information in this document.
[2024-11-25 09:32] LABS: Basophils Absolute Auto 0.1 10^3/uL (0.0-0.1); Basophils Percent Auto 0.7 % (0.2-2.0); Eosinophils Absolute Auto 0.2 10^3/uL (0.0-0.7); Eosinophils Percent Auto 2.1 % (0.9-7.0); Hematocrit 45.6 % (36.0-48.0); Hemoglobin 15.1 g/dL (12.0-16.0); Immature Granulocytes Abs Auto 0.08 10^3/uL (0.00-0.03); Immature Granulocytes Pct Auto 1.1 % (0.0-0.5); Lymphocytes Absolute Auto 2.7 10^3/uL (1.2-3.8); Lymphocytes Percent Auto 37.6 % (20.5-60.0); Mean Corpuscular HGB Conc 33.1 g/dL (29.9-35.2); Mean Corpuscular Hemoglobin 31.5 pg (26.7-34.0); Mean Corpuscular Volume 95.2 fL (81.0-99.0); Mean Platelet Volume 10.5 fL (9.5-13.5); Monocytes Absolute Auto 0.6 10^3/uL (0.3-0.8); Monocytes Percent Auto 8.8 % (1.7-12.0); Neutrophils Absolute Auto 3.5 10^3/uL (1.4-6.5); Neutrophils Percent Auto 49.7 % (43.0-75.0); Platelet Count 183 10^3/uL (150-450); Red Blood Count 4.79 10^6/uL (4.20-5.40); Red Cell Distribution Width 12.2 % (11.0-15.0)
[2024-11-25 10:00] LABS: Anion Gap 12.4; BUN Creatinine Ratio 25.7; Calcium 9.3 mg/dL (8.5-10.1); Chloride 107 mmol/L (98-107); Estimated GFR (African America >60 (>=60 mL/min/1.73m^2); Estimated GFR (Non-African Ame >60 (>=60 mL/min/1.73m^2); Glucose 105 mg/dL (74-106); Potassium 4.4 mmol/L (3.5-5.1); Sodium 143 mmol/L (136-145)
== END 2024-11-25 09:01 | disposition home or self-care (01) ==
LOC: LAB 09:11
DX: Z01.812 Encounter for preprocedural laboratory examination (principal); Z01.818 Encounter for other preprocedural examination
CPT/HCPCS: 36415; 80048; 85025

== ENCOUNTER 2024-12-07 08:12 | Outpatient (OUT) | payer MEDICARE, SELFPAY ==
--- OUTSIDE RECORDS SUMMARY | 2024-12-07 08:19 | XMS_ITS | CCD ---
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 Furnace Repairer Helper Name Role Phone DEMI ., DR LINDSAY [...] Unavailable Angélica Simms MD Primary Care Provider [phone] JOAO CHEEMA Attending Unavailable JOAO CHEEMA Attending Unavailable JOAO CHEEMA Attending Unavailable JOAO CHEEMA Attending Unavailable JOAO CHEEMA Attending Unavailable JOAO CHEEMA Attending Unavailable JOAO CHEEMA Referring Unavailable JOAO CHEEMA Attending Unavailable Allergies Allergy Classification Reported Allergen(s) Allergy Type Date of Onset Reaction(s) Facility (1 source) Chocolate Drug allergy (disorder) [facility] (1 source) piperazine Drug Allergy [facility] Medications Current Medications Medication Drug [...] tablet by mouth once daily azithromycin (Zithromax Z-Roberto) 250 MG tablet Indications: Onychocryptosis Take 1 [...] 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: [PERS HX MAL NEOPLSM OT PART [facility]] Onset: 03-11-2023 Episodic Congestive heart failure; nonhypertensive [...] ankle] 08-25-2024 Chronic Other 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 Salinas Tsang Basophils/100 WBC (Bld) 0.3 % Normal 0.2-2.0 [facility] Comment on above: Performed By: #### A 1C #### [facility] [address] [place] [address] Dr. Salinas Tsang EO # 0.1 103/ul Normal 0.0-0.7 [facility] Comment on above: Performed By: #### A 1C #### [facility] [address] [place] [address] Dr. Salinas Tsang Eosinophils/100 WBC (Bld) 1.7 % Normal 0.9-7.0 [facility] Comment on above: Performed By: #### A 1C #### [facility] [address] [place] [address] Dr. Salinas Tsang Erythrocyte distribution width (RBC) [Ratio] 12.4 % Normal 11.0-15.0 [facility] Comment on above: Performed By: #### A 1C #### [facility] [address] [place] [address] Dr. Salinas Tsang Hematocrit (Bld) [Volume fraction] 40.3 % Normal 36.0-48.0 [facility] Comment on above: Performed By: #### A 1C #### [facility] [address] [place] [address] Dr. Salinas Tsang Hemoglobin (Bld) [Mass/Vol] 13.3 g/dL Normal 12.0-16.0 [facility] Comment on above: Performed By: #### A 1C #### [facility] [address] [place] [address] Dr. Salinas Tsang IG # 0.01 10e3/ul Normal 0.00-0.03 [facility] Comment on above: Performed By: #### A 1C #### [facility] [address] [place] [address] Dr. Salinas Tsang IG % 0.1 % Normal 0.0-0.5 [facility] Comment on above: Performed By: #### A 1C #### [facility] [address] [place] [address] Dr. Salinas Tsang LYMPH # 1.9 103/ul Normal 1.2-3.8 [facility] Comment on above: Performed By: #### A 1C #### [facility] [address] [place] [address] Dr. Salinas Tsang Lymphocytes/100 WBC (Bld) 27.4 % Normal 20.5-60.0 [facility] Comment on above: Performed By: #### A 1C #### [facility] [address] [place] [address] Dr. Salinas Tsang MANUAL DIFF REQ NO Normal [facility] Comment on above: Performed By: #### A 1C #### [facility] [address] [address] [address] Salinas Tsang MCH (RBC) [Entitic mass] 31.2 pg Normal 26.7-34.0 [facility] Comment on above: Performed By: #### A 1C #### [facility] [address] [place] [address] Dr. Salinas Tsang MCHC (RBC) [Mass/Vol] 33.0 g/dL Normal 29.9-35.2 [facility] Comment on above: Performed By: #### A 1C #### [facility] [address] [place] [address] Dr. Salinas Tasng MCV (RBC) [Entitic vol] 94.6 fL Normal 81.0-99.0 [facility] Comment on above: Performed By: #### A 1C #### [facility] [address] [place] [address] Dr. Salinas Tsang MONO # 0.8 103/ul Normal 0.3-0.8 [facility] Comment on above: Performed By: #### A 1C #### [facility] [address] [place] [address] Dr. Salinas Tsang Monocytes/100 WBC (Bld) 12.1 % Critically high 1.7-12.0 [facility] Comment on above: Performed By: #### A 1C #### [facility] [address] [place] [address] Dr. Salinas Tsang NEUT # 4.0 103/ul Normal 1.4-6.5 [facility] Comment on above: Performed By: #### A 1C #### [facility] [address] [place] [address] Dr. Salinas Tsang Neutrophils/100 WBC (Bld) 58.4 % Normal 43.0-75.0 [facility] Comment on above: Performed By: #### A 1C #### [facility] [address] [place] [address] Dr. Salinas Tsang Platelet mean volume (Bld) [Entitic vol] 9.8 fL Normal 9.5-13.5 [facility] Comment on above: Performed By: #### A 1C #### [facility] [address] [place] [address] Dr. Salinas Tsang PLT 205 103/ul Normal 150-450 [facility] Comment on above: Performed By: #### A 1C #### [facility] [address] [place] [address] Dr. Salinas Tsang RBC 4.26 106/ul Normal 4.20-5.40 [facility] Comment on above: Performed By: #### A 1C #### [facility] [address] [place] [address] Dr. Salinas Tsang WBC 6.9 103/ul Normal 4.0-11.0 [facility] Comment on above: Performed By: #### A 1C #### [facility] [address] [place] [address] Dr. Salinas Tsang PROF 14(COMP METB)on 023 Albumin [Mass/Vol] 3.2 g/dL Critically low 3.4-5.0 [facility] Comment on above: Performed By: #### C HELENA HSTROPN #### [facility] [address] [place] [address] Dr. Salinas Tsang Albumin/Globulin [Mass ratio] 0.9 {ratio} Normal [facility] Comment on above: Performed By: #### C HELENA, HSTROPN #### [facility] [address] [place] [address] Dr. Salinas Tsang ALP [Catalytic activity/Vol] 75 U/L Normal 46-116 [facility] Comment on above: Performed By: #### C MP, HSTROPN #### [facility] [address] [place] [address] Dr. Salinas Tsang ALT [Catalytic activity/Vol] 19 U/L Normal 14-59 [facility] Comment on above: Performed By: #### C MP, HSTROPN #### [facility] [address] [place] [address] Dr. Salinas Tsang Anion gap [Moles/Vol] 12.2 mmol/L Normal [facility] Comment on above: Performed By: #### C HELENA, HSTROPN #### [facility] [address] [place] [address] Dr. Salinas Tsang AST [Catalytic activity/Vol] 23 U/L Normal 15-37 [facility] Comment on above: Performed By: #### C HELENA, HSTROPN #### [facility] [address] [place] [address] Dr. Salinas Tsang Bilirubin [Mass/Vol] 0.2 mg/dL Normal 0.2-1.0 [facility] Comment on above: Performed By: #### C HELENA, HSTROPN #### [facility] [address] [place] [address] Dr. Salinas Tsang Calcium [Mass/Vol] 9.2 mg/dL Normal 8.5-10.1 [facility] Comment on above: Performed By: #### C HELENA, HSTROPN #### [facility] [address] [place] [address] Dr. Salinas Tsang Chloride [Moles/Vol] 106 mmol/L Normal 98-107 [facility] Comment on above: Performed By: #### C HELENA, HSTROPN #### [facility] [address] [place] [address] Dr. Salinas Tsang CO2 [Moles/Vol] 27.8 mmol/L Normal 21.0-32.0 [facility] Comment on above: Performed By: #### C HELENA, HSTROPN #### [facility] [address] [place] [address] Dr. Salinas Tsang Creatinine [Mass/Vol] 0.71 mg/dL Normal 0.55-1.02 [facility] Comment on above: Performed By: #### C HELENA, HSTROPN #### [facility] [address] [place] [address] Dr. Salinas Tsang EGFR-AF CYMRO >60 Normal >=60 [facility] Comment on above: Performed By: #### C HELENA, HSTROPN #### [facility] [address] [place] [address] Dr. Salinas Tsang EGFR-NON AF CYMRO >60 Normal >=60 [facility] Comment on above: Performed By: #### C HELENA, HSTROPN #### [facility] [address] [address] [address] Salinas Tsang Globulin (S) [Mass/Vol] 3.5 g/dL Normal [facility] Comment on above: Performed By: #### C HELENA, HSTROPN #### [facility] [address] [address] [address] Salinas Tsang Glucose [Mass/Vol] 92 mg/dL Normal 74-106 [facility] Comment on above: Performed By: #### C HELENA, HSTROPN #### [facility] [address] [address] [address] Salinas Tsang Potassium [Moles/Vol] 4.0 mmol/L Normal 3.5-5.1 [facility] Comment on above: Performed By: #### C HELENA, HSTROPN #### [facility] [address] [address] [address] Salinas Tsang Protein [Mass/Vol] 6.7 g/dL Normal 6.4-8.2 [facility] Comment on above: Performed By: #### C HELENA, HSTROPN #### [facility] [address] [address] [address] Salinas Tsang Sodium [Moles/Vol] 142 mmol/L Normal 136-145 [facility] Comment on above: Performed By: #### C HELENA, HSTROPN #### [facility] [address] [address] [address] Salinas Tsang Urea nitrogen [Mass/Vol] 17.0 mg/dL Normal 7.0-18.0 [facility] Comment on above: Performed By: #### C HELENA, HSTROPN #### [facility] [address] [address] [address] Salinas Tsang Urea nitrogen/Creatinine [Mass ratio] 23.9 mg/mg Normal [facility] Comment on above: Performed By: #### C HELENA, HSTROPN #### [facility] [address] [place] [address] Dr. Salnias Tsang PROTIMEon 03-10-2023 INR Coag (PPP) [Relative time] 0.99 {INR} Normal [facility] Comment on above: Performed By: #### P TT, PT #### [facility] [address] [place] [address] Dr. Salinas Tsang INR GUIDELINES SEE BELOW Normal [facility] Comment on above: Result Comment: KARIN RED INR: 2.0 - 3.0 CONDITIONS NOT LISTED BELOW 2.5 - 3.5 FOR PROSTHETIC HEART VALVE REPLACEMENT 2.5 - 3.5 RECURRENT THROMBOSIS Performed By: #### P TT, PT #### [facility] [address] [place] [address] Dr. Salinas Tsang PT Coag (PPP) [Time] 10.5 s Normal 9.0-11.6 [facility] Comment on above: Performed By: #### P TT, PT #### [facility] [address] [place] [address] Dr. Salinas Tsang PTTon 03-10-2023 aPTT Coag (Bld) [Time] 23.1 s Normal 22.3-36.2 [facility] Comment on above: Performed By: #### A 1C #### [facility] [address] [place] [address] Dr. Salinas Tsang TROPONIN, HIGH SENSITIVITYon 03-10-2023 HSTROP 7.0 pg/mL Normal 4.0-51.3 [facility] Comment on above: Result Comment: CUT- OFF POINTS HAVE BEEN ESTABLISHED BASED ON THE FOURTH UNIVERSAL DEFINITIONS OF MYOCARDIAL INFARCTION. THE UPPER REFERENCE LIMIT (URL) OF TROPONIN, DEFINED THE 99TH PERCENTILE OF cTnI DISTRIBUTION IN A REFERENCE POPULATION, HAS BEEN CONFIRMED THE DECISION THRESHOLD FOR OH DIAGNOSIS. Performed By: #### H STROPN #### [facility] [address] [place] [address] Dr. Salinas Tsang HSTROP 6.5 pg/mL Normal 4.0-51.3 [facility] Comment on above: Result Comment: CUT- OFF POINTS HAVE BEEN ESTABLISHED BASED ON THE FOURTH UNIVERSAL DEFINITIONS OF MYOCARDIAL INFARCTION. THE UPPER REFERENCE LIMIT (URL) OF TROPONIN, DEFINED THE 99TH PERCENTILE OF cTnI DISTRIBUTION IN A REFERENCE POPULATION, HAS BEEN CONFIRMED THE DECISION THRESHOLD FOR OH DIAGNOSIS. Performed By: #### C MP, HSTROPN #### [facility] [address] [place] [address] Dr. Salinas Tsang XR CHEST 1 Von [...] IVY PASCUAL Date: 2023-03-10 09:59 Normal [facility] INSULINon 09-30-2022 Insulin 22.0 uIU/mL Normal 2.6-24.9 [facility] Comment on above: Performed By: #### I NSULIN #### [facility] [address] [place] [address] Dr. Salinas Tsang BNPon 09-29-2022 Natriuretic peptide B (Bld) [Mass/Vol] 96.0 pg/mL Normal <=1,800.0 [facility] Comment on above: Performed By: #### A 1C #### [facility] [address] [place] [address] Dr. Salinas Tsang CBC AUTO DIFFon 09-29-2022 BASO # 0.0 103/ul Normal 0.0-0.1 [facility] Comment on above: Performed By: #### C BC #### [facility] [address] [place] [address] Dr. Salinas Tsang Basophils/100 WBC (Bld) 0.1 % Critically low 0.2-2.0 [facility] Comment on above: Performed By: #### C BC #### [facility] [address] [place] [address] Dr. Salinas Tsang EO # 0.2 103/ul Normal 0.0-0.7 [facility] Comment on above: Performed By: #### C BC #### [facility] [address] [place] [address] Dr. Salinas Tsang Eosinophils/100 WBC (Bld) 2.1 % Normal 0.9-7.0 [facility] Comment on above: Performed By: #### C BC #### [facility] [address] [place] [address] Dr. Salinas Tsang Erythrocyte distribution width (RBC) [Ratio] 13.1 % Normal 11.0-15.0 [facility] Comment on above: Performed By: #### C BC #### [facility] [address] [place] [address] Dr. Salinas Tsang Hematocrit (Bld) [Volume fraction] 43.6 % Normal 36.0-48.0 [facility] Comment on above: Performed By: #### C BC #### [facility] [address] [place] [address] Dr. Salinas Tsang Hemoglobin (Bld) [Mass/Vol] 14.2 g/dL Normal 12.0-16.0 [facility] Comment on above: Performed By: #### C BC #### [facility] [address] [place] [address] Dr. Salinas Tsang IG # 0.02 10e3/ul Normal 0.00-0.03 [facility] Comment on above: Performed By: #### C BC #### [facility] [address] [place] [address] Dr. Salinas Tsang IG % 0.3 % Normal 0.0-0.5 [facility] Comment on above: Performed By: #### C BC #### [facility] [address] [place] [address] Dr. Salinas Tsang LYMPH # 2.6 103/ul Normal 1.2-3.8 [facility] Comment on above: Performed By: #### C BC #### [facility] [address] [place] [address] Dr. Salinas Tsang Lymphocytes/100 WBC (Bld) 36.8 % Normal 20.5-60.0 [facility] Comment on above: Performed By: #### C BC #### [facility] [address] [place] [address] Dr. Salinas Tsang MANUAL DIFF REQ NO Normal [facility] Comment on above: Performed By: #### C BC #### [facility] [address] [place] [address] Dr. Salinas Tsang MCH (RBC) [Entitic mass] 30.4 pg Normal 26.7-34.0 [facility] Comment on above: Performed By: #### C BC #### [facility] [address] [place] [address] Dr. Salinas Tsang MCHC (RBC) [Mass/Vol] 32.6 g/dL Normal 29.9-35.2 [facility] Comment on above: Performed By: #### C BC #### [facility] [address] [place] [address] Dr. Salinas Tsang MCV (RBC) [Entitic vol] 93.4 fL Normal 81.0-99.0 [facility] Comment on above: Performed By: #### C BC #### [facility] [address] [place] [address] Dr. Salinas Tsang MONO # 0.6 103/ul Normal 0.3-0.8 [facility] Comment on above: Performed By: #### C BC #### [facility] [address] [place] [address] Dr. Salinas Tsang Monocytes/100 WBC (Bld) 8.8 % Normal 1.7-12.0 [facility] Comment on above: Performed By: #### C BC #### [facility] [address] [place] [address] Dr. Salinas Tsang NEUT # 3.7 103/ul Normal 1.4-6.5 [facility] Comment on above: Performed By: #### C BC #### [facility] [address] [place] [address] Dr. Salinas Tsang Neutrophils/100 WBC (Bld) 51.9 % Normal 43.0-75.0 [facility] Comment on above: Performed By: #### C BC #### [facility] [address] [place] [address] Dr. Salinas Tsang Platelet mean volume (Bld) [Entitic vol] 9.5 fL Normal 9.5-13.5 [facility] Comment on above: Performed By: #### C BC #### [facility] [address] [place] [address] Dr. Salinas Tsang PLT 194 103/ul Normal 150-450 [facility] Comment on above: Performed By: #### C BC #### [facility] [address] [place] [address] Dr. Salinas Tsang RBC 4.67 106/ul Normal 4.20-5.40 [facility] Comment on above: Performed By: #### C BC #### [facility] [address] [place] [address] Dr. Salinas Tsang WBC 7.1 103/ul Normal 4.0-11.0 [facility] Comment on above: Performed By: #### C BC #### [facility] [address] [place] [address] Dr. Salinas Tsang FREE THYROXINE INDEX T7on FTI 2.28 Normal 1.30-4.50 [facility] Comment on above: Performed By: #### A 1C #### [facility] [address] [place] [address] Dr. Salinas Tsang T3U 34.0 % Normal 30.0-39.0 [facility] Comment on above: Performed By: #### A 1C #### [facility] [address] [place] [address] Dr. Salinas Tsang T4 [Mass/Vol] 6.70 ug/dL Normal 4.80-13.90 [facility] Comment on above: Performed By: #### A 1C #### [facility] [address] [place] [address] Dr. Salinas Tsang GLYCOHEMOGLOBIN A1Con 2021 ADA RECOMMENDATION SEE BELOW Normal [facility] Comment on above: Result Comment: ADA RECOMMENDED LIMIT 4.0 - 6.0 ADA THERAPEUTIC TARGET < 7.0 ACTION SUGGESTED > 7.0 Performed By: #### A 1C #### [facility] [address] [place] [address] Dr. Salinas Tsang Glucose [Mass/Vol] 105 mg/dL Normal [facility] Comment on above: Performed By: #### A 1C #### [facility] [address] [place] [address] Dr. Salinas Tsang HbA1c (Bld) [Mass fraction] 5.3 % Normal 4.5-6.2 [facility] Comment on above: Performed By: #### A 1C #### [facility] [address] [place] [address] Dr. Salinas Tsang IRONon 09-29-2022 Iron [Mass/Vol] 103.0 ug/dL Normal 50.0-170.0 [facility] Comment on above: Performed By: #### A 1C #### [facility] [address] [place] [address] Dr. Salinas Tsang LIPID PROFILEon 09-29-2022 CHOL-HDL RATIO NORM SEE BELOW Normal [facility] Comment on above: Result Comment: 3.3 - 4.4 LOW RISK 4.4 - 7.1 AVERAGE RISK 7.1 - 11.0 MODERATE RISK >11.0 HIGH RISK Performed By: #### A 1C #### [facility] [address] [place] [address] Dr. Salinas Tsang Cholesterol [Mass/Vol] 143 mg/dL Normal <=200 [facility] Comment on above: Performed By: #### A 1C #### [facility] [address] [place] [address] Dr. Salinas Tsang Cholesterol in HDL [Mass/Vol] 39 mg/dL Critically low 40-60 [facility] Comment on above: Performed By: #### A 1C #### [facility] [address] [place] [address] Dr. Salinas Tsang Cholesterol in LDL [Mass/Vol] 75.4 mg/dL Normal [facility] Comment on above: Performed By: #### A 1C #### [facility] [address] [address] [address] Salinas Tsang Cholesterol.total/Ch olesterol in HDL [Mass ratio] 3.7 {ratio} Normal [facility] Comment on above: Performed By: #### A 1C #### [facility] [address] [address] [address] Salinas Tsang HDL NORMAL > or = 60 mg/dl - LOW CARDIOVASCULAR RISK <40 mg/dl - HIGH CARDIOVASCULAR RISK Normal [facility] Comment on above: Performed By: #### A 1C #### [facility] [address] [address] [address] Salinas Tsang LDL CALC NORMAL SEE BELOW Normal [facility] Comment on above: Result Comment: <100 mg/dl OPTIMAL 100 - 129 mg/dl NEAR OR ABOVE OPTIMAL 130 - 159 mg/dl BORDERLINE HIGH 160 - 189 mg/dl HIGH >190 mg/dl VERY HIGH Performed By: #### A 1C #### [facility] [address] [place] [address] Dr. Salinas Tsang Triglyceride [Mass/Vol] 143 mg/dL Normal <=150 [facility] Comment on above: Performed By: #### A 1C #### [facility] [address] [place] [address] Dr. Salinas Tsang VLDL CALC 28.6 mg/dL Normal [facility] Comment on above: Performed By: #### A 1C #### [facility] [address] [place] [address] Dr. Salinas Tsang PROF 14(COMP METB)on 022 Albumin [Mass/Vol] 3.5 g/dL Normal 3.4-5.0 [facility] Comment on above: Performed By: #### A 1C #### [facility] [address] [place] [address] Dr. Salinas Tsang Albumin/Globulin [Mass ratio] 1.0 {ratio} Normal [facility] Comment on above: Performed By: #### A 1C #### [facility] [address] [place] [address] Dr. Salinas Tsang ALP [Catalytic activity/Vol] 64 U/L Normal 46-116 [facility] Comment on above: Performed By: #### A 1C #### [facility] [address] [address] [address] Salinas Tsang ALT [Catalytic activity/Vol] 21 U/L Normal 14-59 [facility] Comment on above: Performed By: #### A 1C #### [facility] [address] [address] [address] Salinas Tsang Anion gap [Moles/Vol] 11.3 mmol/L Normal [facility] Comment on above: Performed By: #### A 1C #### [facility] [address] [address] [address] Salinas Tsang AST [Catalytic activity/Vol] 22 U/L Normal 15-37 [facility] Comment on above: Performed By: #### A 1C #### [facility] [address] [place] [address] Dr. Salinas Tsang Bilirubin [Mass/Vol] 0.4 mg/dL Normal 0.2-1.0 [facility] Comment on above: Performed By: #### A 1C #### [facility] [address] [address] [address] Salinas Tsang Calcium [Mass/Vol] 9.0 mg/dL Normal 8.5-10.1 [facility] Comment on above: Performed By: #### A 1C #### [facility] [address] [address] [address] Salinas Tsang Chloride [Moles/Vol] 106 mmol/L Normal 98-107 [facility] Comment on above: Performed By: #### A 1C #### [facility] [address] [address] [address] Salinas Tsang CO2 [Moles/Vol] 29.6 mmol/L Normal 21.0-32.0 [facility] Comment on above: Performed By: #### A 1C #### [facility] [address] [address] [address] Salinas Tsang Creatinine [Mass/Vol] 0.70 mg/dL Normal 0.55-1.02 [facility] Comment on above: Performed By: #### A 1C #### [facility] [address] [address] [address] Salinas Tsang EGFR-AF CYMRO >60 Normal >=60 [facility] Comment on above: Performed By: #### A 1C #### [facility] [address] [address] [address] Salinas Tsang EGFR-NON AF CYMRO >60 Normal >=60 [facility] Comment on above: Performed By: #### A 1C #### [facility] [address] [address] [address] Salinas Tsang Globulin (S) [Mass/Vol] 3.4 g/dL Normal [facility] Comment on above: Performed By: #### A 1C #### [facility] [address] [address] [address] Salinas Tsang Glucose [Mass/Vol] 98 mg/dL Normal 74-106 [facility] Comment on above: Performed By: #### A 1C #### [facility] [address] [address] [address] Salinas Tsang Potassium [Moles/Vol] 3.9 mmol/L Normal 3.5-5.1 [facility] Comment on above: Performed By: #### A 1C #### [facility] [address] [address] [address] Salinas Tsang Protein [Mass/Vol] 6.9 g/dL Normal 6.4-8.2 [facility] Comment on above: Performed By: #### A 1C #### [facility] [address] [address] [address] Salinas Tsang Sodium [Moles/Vol] 143 mmol/L Normal 136-145 [facility] Comment on above: Performed By: #### A 1C #### [facility] [address] [address] [address] Salinas Tsang Urea nitrogen [Mass/Vol] 16.0 mg/dL Normal 7.0-18.0 [facility] Comment on above: Performed By: #### A 1C #### [facility] [address] [place] [address] Dr. Salinas Tsang Urea nitrogen/Creatinine [Mass ratio] 22.9 mg/mg Normal [facility] Comment on above: Performed By: #### A 1C #### [facility] [address] [place] [address] Dr. Salinas Tsang TSHon 09-29-2022 TSH 1.484 uIU/mL Normal 0.358-3.740 [facility] Comment on above: Performed By: #### A 1C #### [facility] [address] [place] [address] Dr. Salinas Tsang VITAMIN B12on 09-29-2022 Cobalamin (Vitamin B12) [Mass/Vol] 488.0 pg/mL Normal 193.0-986.0 [facility] Comment on above: Performed By: #### A 1C #### [facility] [address] [place] [address] Dr. Salinas Tsang VITAMIN D 25 OHon 09-29-2022 VIT D 25-OH 86.8 ng/mL Normal [facility] Comment on above: Performed By: #### A 1C #### [facility] [address] [place] [address] Dr. Salinas Tsang VIT D RANGES SEE BELOW Normal [facility] Comment on above: Result Comment: <20 ng/mL Vit D deficient 20 - <30 ng/mL Vit D insufficient 30 - 100 ng/mL Vit D sufficient >100 ng/mL Potential Toxicity Performed By: #### A 1C #### [facility] [address] [place] [address] Dr. Salinas Tsang XR ABD FLAT UP_PA [...] ABRAHAM ARNETT Date: 2022-08-30 17:04 Normal [facility] Covid-19 PCR (CVDTB)on 05-28 SARS-CoV-2 (COVID-19) RNA FRANKO+probe Ql (Unsp spec) Detected Critically abnormal NOT DETECTED [facility] Comment on above: Result Comment: This test is not yet approved or cleared by the [place] FDA. When there are no FDA-approved or cleared tests available, and other criteria are met, FDA can make tests available under an emergency access mechanism called an Emergency Use Authorization (EUA). The EUA for this test is supported by the [place] of Health and Human Service's (HHS's) declaration [...] longer be used). Performed By: #### [facility] #### [facility] [address] [place] [address] Dr. Salinas Tsang Vital Signs Date Time Vital Sign Value Performing Clinician Faci lity 11-03-2024 11:00-0500 Body height 152.4 cm Joao Cheema DPM Work Phone: [facility] 11-03-2024 11:00-0500 Body mass index (BMI) [Ratio] 28.32 kg/m2 Joao Cheema DPM Work Phone: [facility] 11-03-2024 11:00-0500 Body weight 65.77 kg Joao Cheema DPM Work Phone: [facility] 11-03-2024 11:00-0500 Respiratory rate 16 /min Joao Cheema DPM Work Phone: [facility] 08-25-2024 10:57-0400 Body height 152.4 cm Joao Cheema DPM Work Phone: [facility] 08-25-2024 10:57-0400 Body mass index (BMI) [Ratio] 28.32 kg/m2 Joao Brown DPM Work Phone: [facility] 08-25-2024 10:57-0400 Body weight 65.77 kg Joao Brown DPM Work Phone: [facility] 08-25-2024 10:57-0400 Diastolic blood pressure 80 mm[Hg] Joao Brown DPM Work Phone: [facility] 08-25-2024 10:57-0400 Heart rate 81 /min Joao Brown DPM Work Phone: [facility] 08-25-2024 10:57-0400 Systolic blood pressure 126 mm[Hg] Joao Brown DPM Work Phone: [facility] 07-21-2024 10:25-0400 Body height 152.4 cm Joao Brown DPM Work Phone: [facility] 07-21-2024 10:25-0400 Body mass index (BMI) [Ratio] 28.32 kg/m2 Joao Brown DPM Work Phone: [facility] 07-21-2024 10:25-0400 Body weight 65.77 kg Joao Brown DPM Work Phone: [facility] 07-21-2024 10:25-0400 Diastolic blood pressure 80 mm[Hg] Joao Brown DPM Work Phone: [facility] 07-21-2024 10:25-0400 Heart rate 75 /min Joao Brown DPM Work Phone: [facility] 07-21-2024 10:25-0400 Respiratory rate 18 /min Joao Brown DPM Work Phone: [facility] 07-21-2024 10:25-0400 Systolic blood pressure 128 mm[Hg] Joao Brown DPM Work Phone: [facility] 07-14-2024 10:26-0400 Body height 152.4 cm Joao Brown DPM Work Phone: [facility] 07-14-2024 10:26-0400 Body mass index (BMI) [Ratio] 28.32 kg/m2 Joaocharu Cheema DPM Work Phone: [facility] 07-14-2024 10:26-0400 Body weight 65.77 kg Joao Deni DPM Work Phone: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
[2024-12-07 08:50] LABS: Estimated Average Glucose 105 mg/dL; Glycohemoglobin A1C 5.3 % (4.5-6.2)
[2024-12-07 09:19] LABS: Basophils Percent Auto 0.3 % (0.2-2.0); Eosinophils Absolute Auto 0.1 10^3/uL (0.0-0.7); Eosinophils Percent Auto 2.4 % (0.9-7.0); Hematocrit 44.1 % (36.0-48.0); Hemoglobin 14.4 g/dL (12.0-16.0); Immature Granulocytes Abs Auto 0.01 10^3/uL (0.00-0.03); Immature Granulocytes Pct Auto 0.2 % (0.0-0.5); Lymphocytes Absolute Auto 2.5 10^3/uL (1.2-3.8); Lymphocytes Percent Auto 42.8 % (20.5-60.0); Mean Corpuscular HGB Conc 32.7 g/dL (29.9-35.2); Mean Corpuscular Hemoglobin 31.4 pg (26.7-34.0); Mean Corpuscular Volume 96.1 fL (81.0-99.0); Mean Platelet Volume 10.7 fL (9.5-13.5); Monocytes Absolute Auto 0.5 10^3/uL (0.3-0.8); Monocytes Percent Auto 8.6 % (1.7-12.0); Neutrophils Absolute Auto 2.6 10^3/uL (1.4-6.5); Neutrophils Percent Auto 45.7 % (43.0-75.0); Platelet Count 179 10^3/uL (150-450); Red Blood Count 4.59 10^6/uL (4.20-5.40); Red Cell Distribution Width 12.5 % (11.0-15.0); White Blood Count 5.7 10^3/uL (4.0-11.0)
[2024-12-07 09:21] LABS: Alanine Aminotransferase 18 U/L (14-59); Albumin Globulin Ratio 1.1; Albumin Level 3.5 g/dL (3.4-5.0); Alkaline Phosphatase 68 U/L (46-116); Anion Gap 8.8; Aspartate Amino Transferase 23 U/L (15-37); BUN Creatinine Ratio 21.8; Bilirubin Total 0.4 mg/dL (0.2-1.0); Calcium 9.4 mg/dL (8.5-10.1); Carbon Dioxide 32.1 mmol/L (21.0-32.0); Chloride 107 mmol/L (98-107); Chol HDL Ratio 3.3; Cholesterol 133 mg/dL (<=200); Estimated GFR (African America >60 (>=60 mL/min/1.73m^2); Estimated GFR (Non-African Ame >60 (>=60 mL/min/1.73m^2); Free T3 2.75 pg/mL (2.18-3.98); Globulin 3.2 g/dL; Glucose 90 mg/dL (74-106); HDL Cholesterol 40 mg/dL (40-60); LDL Cholesterol Calculated 70.6 mg/dL; Potassium 3.9 mmol/L (3.5-5.1); Sodium 144 mmol/L (136-145); Thyroid Stimulating Hormone 1.507 uIU/mL (0.358-3.740); Total Protein 6.7 g/dL (6.4-8.2); Triglycerides 112 mg/dL (<=150); VLDL CHOLESTEROL 22.4 mg/dL
== END 2024-12-07 08:13 | disposition home or self-care (01) ==
LOC: LAB 08:14
PROVIDERS: Visit Provider Family Medicine
DX: E78.00 Pure hypercholesterolemia, unspecified (principal); I10 Essential (primary) hypertension; K21.9 Gastro-esophageal reflux disease without esophagitis; R73.09 Other abnormal glucose; D64.9 Anemia, unspecified; E55.9 Vitamin D deficiency, unspecified
CPT/HCPCS: 36415; 80053; 80061; 82306; 83036; 83540; 84436; 84443; 84481; 85025

== ENCOUNTER 2025-02-16 07:41 | Outpatient (OUT) | payer MEDICARE, SELFPAY ==
--- NOTE | 2025-02-16 08:00 | ECG_ITS ---
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 Measurements Intervals [place] Rate: 63 P: -18 HI: 151 QRS: 59 QRSD: 91 T: 62 QT: 370 QTc: 381 Interpretive Statements SINUS RHYTHM Normal ECG Compared to ECG 09/06/2024 08:36:56 No significant changes Electronically Signed On 02-16-2025 20:42:12 EDT by MALACHI GARCIA M.D.
[2025-02-16 08:01] LABS: Basophils Percent Auto 0.3 % (0.2-2.0); Eosinophils Absolute Auto 0.3 10^3/uL (0.0-0.7); Eosinophils Percent Auto 3.7 % (0.9-7.0); Hematocrit 43.5 % (36.0-48.0); Hemoglobin 14.5 g/dL (12.0-16.0); Immature Granulocytes Abs Auto 0.01 10^3/uL (0.00-0.03); Immature Granulocytes Pct Auto 0.1 % (0.0-0.5); Lymphocytes Absolute Auto 2.5 10^3/uL (1.2-3.8); Mean Corpuscular HGB Conc 33.3 g/dL (29.9-35.2); Mean Corpuscular Hemoglobin 31.9 pg (26.7-34.0); Mean Corpuscular Volume 95.8 fL (81.0-99.0); Mean Platelet Volume 10.1 fL (9.5-13.5); Monocytes Absolute Auto 0.6 10^3/uL (0.3-0.8); Neutrophils Absolute Auto 3.6 10^3/uL (1.4-6.5); Neutrophils Percent Auto 50.9 % (43.0-75.0); Platelet Count 193 10^3/uL (150-450); Red Blood Count 4.54 10^6/uL (4.20-5.40); Red Cell Distribution Width 12.4 % (11.0-15.0)
[2025-02-16 08:18] LABS: Anion Gap 10.9; BUN Creatinine Ratio 25.4; Calcium 9.6 mg/dL (8.5-10.1); Carbon Dioxide 30.1 mmol/L (21.0-32.0); Chloride 107 mmol/L (98-107); Estimated GFR (African America >60 (>=60 mL/min/1.73m^2); Estimated GFR (Non-African Ame >60 (>=60 mL/min/1.73m^2); Glucose 99 mg/dL (74-106); Sodium 144 mmol/L (136-145)
== END 2025-02-16 07:42 | disposition home or self-care (01) ==
LOC: CARD 07:42
DX: Z01.810 Encounter for preprocedural cardiovascular examination (principal); Z01.818 Encounter for other preprocedural examination
CPT/HCPCS: 36415; 80048; 85025; 93005

== ENCOUNTER 2025-06-08 08:15 | Outpatient (OUT) | payer MEDICARE, SELFPAY ==
--- OUTSIDE RECORDS SUMMARY | 2025-06-08 08:25 | XMS_ITS | CCD ---
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 Phone DEMI ., DR LINDSAY [...] ., DR LINDSAY Primary Care Unavailable Angélica Alberto MD Primary Care Provider [phone] Angélica Alberto MD Primary Care Provider [phone] DENI JOAO A Attending Unavailable BROWN, JOAO A Attending Unavailable BROWN, JOAO A Attending Unavailable BROWN, JOAO A Referring Unavailable BROWN, JOAO A Attending Unavailable BROWN, JOAO A Attending Unavailable BROWN, JOAO A Referring Unavailable BROWN, JOAO A Attending Unavailable BROWN, JOAO A Attending Unavailable BROWN, JOAO A Attending Unavailable BROWN, JOAO A Attending Unavailable BROWN, JOAO A Attending Unavailable BROWN, JOAO A Attending Unavailable BROWN, JOAO A Referring Unavailable BROWN, JOAO A Attending Unavailable Allergies Allergy Classification Reported Allergen(s) Allergy Type Date of Onset Reaction(s) Facility (1 source) Chocolate Drug allergy (disorder) [facility] (1 source) piperazine Drug Allergy [facility] Medications Current Medications Medication Drug Class(es) Dates Sig (Normalized) Sig (Original) acetaminophen 325 mg / HYDROcodone bitartrate 5 mg oral tablet (2 sources) Opioid Agonist Start: 02-23-2025 End: 02-28-2025 take 1 tablet by mouth every eight hours as needed for pain HYDROcodone-acetamin ophen ([place]) 5-325 MG tablet Indications: Pain Take 1 tablet by mouth every 8 (eight) hours if needed for moderate pain (PRN pain) for up to 5 days 15 tablet 02/23/2025 02/28/2025 Active aspirin 81 mg delayed release oral tablet (20 sources) Platelet Aggregation Inhibitor, Nonsteroidal Anti-inflammatory Drug [...] Active calcium carbonate 1500 mg oral tablet (20 sources) take 1 tablet by mouth in the morning calcium carbonate (Super Calcium) 1500 (600 Ca) MG tablet Take 1,500 mg by mouth in the morning and 1,500 mg in the evening. Take with meals. Active omeprazole 40 mg delayed release oral capsule (20 sources) Proton Pump Inhibitor Start: 01-22-2024 omeprazole (PriLOSEC) [address] capsule 01/22/2024 Active simvastatin 20 mg oral tablet (20 sources) HMG-CoA Reductase Inhibitor Start: 01-22-2024 simvastatin (Zocor) 20 MG tablet 01/22/2024 Active Problems Active Problems Problem Classification Problem Date Documented Da te Episodic/Chronic Acquired foot deformities (13 sources) Hallux valgus (acquired), left foot; 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: [Hallux valgus (acquired)] 08-25-2024 Chronic Acquired foot deformities (1 source) Hallux valgus (acquired), right foot; 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: [Hallux valgus (acquired)] 06-01-2025 Chronic Cancer of uterus (1 source) Personal [...] DISEASE W/HEART FAIL] Onset: 10-04-2022 Chronic Mycoses (8 sources) Pain in toe; 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: [Tinea unguium] 08-25-2024 Episodic Nonspecific chest pain (5 sources) Chest pain, unspecified; 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: [CHEST PAIN UNSPECIFIED] Onset: 10-04-2022 Episodic Nutritional deficiencies (1 source) Vitamin D deficiency, unspecified; 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: [VITAMIN D DEFICIENCY UNSPECIFIED] Onset: 10-04-2022 Chronic Osteoarthritis (1 source) Unspecified osteoarthritis, unspecified site; 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: [UNSPECIFIED OSTEOARTHRITIS UNS SITE] Onset: 03-11-2023 Chronic Other acquired deformities (5 sources) Contracture of joint of left ankle; 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: [Contracture, left ankle] 08-25-2024 Chronic Other aftercare (1 source) detention (current) use of aspirin; 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: [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 OF ASPIRIN] Onset: 03-11-2023 Episodic Other aftercare (1 source) 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; 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: [OTH LONG-TERM CURRENT DRUG THERAPY] Onset: 03-11-2023 Episodic Other [...] nail] 06-30-2024 Episodic Peripheral and visceral atherosclerosis (4 sources) Peripheral vascular disease; 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: [Peripheral vascular [...] Test Name Value Interpretation Reference Range Facility XR Foot - left 3 [facility] Result: Notable [facility] bunionectomy with rectus left great toe and arthroplasty the base of proximal phalanx of left great toe [facility] Radiology Study observation (narrative) [facility] CBC AUTO DIFFon 03-10-2023 BASO # 0.0 103/ul Normal 0.0-0.1 [facility] Comment on above: Performed By: #### A 1C #### [facility] [address] [address] [address] Salinas Tsang Basophils/100 WBC (Bld) 0.3 % Normal 0.2-2.0 [facility] Comment on above: Performed By: #### A 1C #### [facility] [address] [address] [address] Salinas Tsang EO # 0.1 103/ul Normal 0.0-0.7 [facility] Comment on above: Performed By: #### A 1C #### [facility] [address] [address] [address] Salinas Tsang Eosinophils/100 WBC (Bld) 1.7 % Normal 0.9-7.0 [facility] Comment on above: Performed By: #### A 1C #### [facility] [address] [address] [address] Salinas Tsang Erythrocyte distribution width (RBC) [Ratio] 12.4 % Normal 11.0-15.0 [facility] Comment on above: Performed By: #### A 1C #### [facility] [address] [address] [address] Salinas Tsang Hematocrit (Bld) [Volume fraction] 40.3 % Normal 36.0-48.0 [facility] Comment on above: Performed By: #### A 1C #### [facility] [address] [address] [address] Salinas Tsang Hemoglobin (Bld) [Mass/Vol] 13.3 g/dL Normal 12.0-16.0 [facility] Comment on above: Performed By: #### A 1C #### [facility] [address] [place] [address] Dr. Salinas Tsang IG # 0.01 10e3/ul Normal 0.00-0.03 [facility] Comment on above: Performed By: #### A 1C #### [facility] [address] [place] [address] Dr. Salinas Tsang IG % 0.1 % Normal 0.0-0.5 [facility] Comment on above: Performed By: #### A 1C #### [facility] [address] [place] [address] Dr. Salinas Tsang LYMPH # 1.9 103/ul Normal 1.2-3.8 [facility] Comment on above: Performed By: #### A 1C #### [facility] [address] [place] [address] Dr. Salinas Tsang Lymphocytes/100 WBC (Bld) 27.4 % Normal 20.5-60.0 [facility] Comment on above: Performed By: #### A 1C #### [facility] [address] [place] [address] Dr. Salinas Tsang MANUAL DIFF REQ NO Normal [facility] Comment on above: Performed By: #### A 1C #### [facility] [address] [place] [address] Dr. Salinas Tsang MCH (RBC) [Entitic mass] 31.2 pg Normal 26.7-34.0 [facility] Comment on above: Performed By: #### A 1C #### [facility] [address] [place] [address] Dr. Salinas Tsang MCHC (RBC) [Mass/Vol] 33.0 g/dL Normal 29.9-35.2 [facility] Comment on above: Performed By: #### A 1C #### [facility] [address] [place] [address] Dr. Salinas Tsang MCV (RBC) [Entitic vol] 94.6 fL Normal 81.0-99.0 [facility] Comment on above: Performed By: #### A 1C #### [facility] [address] [place], [place] [id number] Dr. Salinas Tsang MONO # 0.8 103/ul Normal 0.3-0.8 [facility] Comment on above: Performed By: #### A 1C #### [facility] [address] [place] [address] Dr. Salinas Tsang Monocytes/100 WBC (Bld) 12.1 % Critically high 1.7-12.0 [facility] Comment on above: Performed By: #### A 1C #### [facility] [address] [place] [address] Dr. Salinas Tsang NEUT # 4.0 103/ul Normal 1.4-6.5 [facility] Comment on above: Performed By: #### A 1C #### [facility] [address] [place] [address] Dr. Salinas Tsang Neutrophils/100 WBC (Bld) 58.4 % Normal 43.0-75.0 [facility] Comment on above: Performed By: #### A 1C #### [facility] [address] [place] [address] Dr. Salinas Tsang Platelet mean volume (Bld) [Entitic vol] 9.8 fL Normal 9.5-13.5 [facility] Comment on above: Performed By: #### A 1C #### [facility] [address] [place] [address] Dr. Salinas Tsang PLT 205 103/ul Normal 150-450 [facility] Comment on above: Performed By: #### A 1C #### [facility] [address] [place] [address] Dr. Salinas Tsang RBC 4.26 106/ul Normal 4.20-5.40 [facility] Comment on above: Performed By: #### A 1C #### [facility] [address] [place] [address] Dr. Salinas Tsang WBC 6.9 103/ul Normal 4.0-11.0 [facility] Comment on above: Performed By: #### A 1C #### [facility] [address] [place] [address] Dr. Salinas Tsang PROF 14(COMP METB)on 023 Albumin [Mass/Vol] 3.2 g/dL Critically low 3.4-5.0 [facility] Comment on above: Performed By: #### C HELENA, HSTROPN #### [facility] [address] [address] [address] Salinas Tsang Albumin/Globulin [Mass ratio] 0.9 {ratio} Normal [facility] Comment on above: Performed By: #### C HELENA, HSTROPN #### [facility] [address] [address] [address] Salinas Tsang ALP [Catalytic activity/Vol] 75 U/L Normal 46-116 [facility] Comment on above: Performed By: #### C HELENA, HSTROPN #### [facility] [address] [place] [address] Dr. Salinas Tasng ALT [Catalytic activity/Vol] 19 U/L Normal 14-59 [facility] Comment on above: Performed By: #### C HELENA, HSTROPN #### [facility] [address] [place] [address] Dr. Salinas Tsang Anion gap [Moles/Vol] 12.2 mmol/L Normal [facility] Comment on above: Performed By: #### C HELENA, HSTROPN #### [facility] [address] [place] [address] Dr. Salinas Tsang AST [Catalytic activity/Vol] 23 U/L Normal 15-37 [facility] Comment on above: Performed By: #### C HELENA, HSTROPN #### [facility] [address] [place] [address] Dr. Salinas Tsang Bilirubin [Mass/Vol] 0.2 mg/dL Normal 0.2-1.0 [facility] Comment on above: Performed By: #### C HELENA, HSTROPN #### [facility] [address] [place] [address] Dr. Salinas Tsang Calcium [Mass/Vol] 9.2 mg/dL Normal 8.5-10.[address] [facility] Comment on above: Performed By: #### C MP, HSTROPN #### [facility] [address] [address] [address] Salinas Tsang Chloride [Moles/Vol] 106 mmol/L Normal 98-107 [facility] Comment on above: Performed By: #### C MP, HSTROPN #### [facility] [address] [address] [address] Salinas Tsang CO2 [Moles/Vol] 27.8 mmol/L Normal 21.0-32.0 [facility] Comment on above: Performed By: #### C MP, HSTROPN #### [facility] [address] [address] [address] Salinas Tsang Creatinine [Mass/Vol] 0.71 mg/dL Normal 0.55-1.02 [facility] Comment on above: Performed By: #### C MP, HSTROPN #### [facility] [address] [place] [address] Dr. Salinas Tsang EGFR-AF KAZAKH >60 Normal >=60 [facility] Comment on above: Performed By: #### C MP, HSTROPN #### [facility] [address] [address] [address] Salinas Tsang EGFR-NON AF KAZAKH >60 Normal >=60 [facility] Comment on above: Performed By: #### C MP, HSTROPN #### [facility] [address] [place] [address] Dr. Salinas Tsang Globulin (S) [Mass/Vol] 3.5 g/dL Normal [facility] Comment on above: Performed By: #### C MP, HSTROPN #### [facility] [address] [address] [address] Salinas Tsang Glucose [Mass/Vol] 92 mg/dL Normal 74-[address] [facility] Comment on above: Performed By: #### C MP, HSTROPN #### [facility] [address] [address] [address] Salinas Tsang Potassium [Moles/Vol] 4.0 mmol/L Normal 3.5-5.1 [facility] Comment on above: Performed By: #### C MP, HSTROPN #### [facility] [address] [place] [address] Dr. Salinas Tsang Protein [Mass/Vol] 6.7 g/dL Normal 6.4-8.[address] [facility] Comment on above: Performed By: #### C MP, HSTROPN #### [facility] [address] [place] [address] Dr. Salinas Tsang Sodium [Moles/Vol] 142 mmol/L Normal 136-[address] [facility] Comment on above: Performed By: #### C MP, HSTROPN #### [facility] [address] [place] [address] Dr. Salinas Tsang Urea nitrogen [Mass/Vol] 17.0 mg/dL Normal 7.0-18.0 [facility] Comment on above: Performed By: #### C MP, HSTROPN #### [facility] [address] [place] [address] Dr. Salinas Tsang Urea nitrogen/Creatinine [Mass ratio] 23.9 mg/mg Normal [facility] Comment on above: Performed By: #### C MP, HSTROPN #### [facility] [address] [place] [address] Dr. Salinas Tsang PROTIMEon 03-10-2023 INR Coag (PPP) [Relative time] 0.99 {INR} Normal [facility] Comment on above: Performed By: #### P TT, PT #### [facility] [address] [place] [address] Dr. Salinas Tsang INR GUIDELINES SEE BELOW Normal [facility] Comment on above: Result Comment: KARIN RED INR: 2.0 - 3.0 CONDITIONS NOT LISTED BELOW 2.5 - 3.5 FOR PROSTHETIC HEART VALVE REPLACEMENT 2.5 - 3.5 RECURRENT THROMBOSIS Performed By: #### P TT, PT #### [facility] [address] [place] [address] Dr. Salinas Tsang PT Coag (PPP) [Time] 10.5 s Normal 9.0-11.6 [facility] Comment on above: Performed By: #### P TT, PT #### [facility] [address] [address] [address] Salinas Tsang PTTon 03-10-2023 aPTT Coag (Bld) [Time] 23.1 s Normal 22.3-36.2 [facility] Comment on above: Performed By: #### A 1C #### [facility] [address] [address] [address] Salinas Tsang TROPONIN, HIGH SENSITIVITYon 03-10-2023 HSTROP 7.0 pg/mL Normal 4.0-51.3 [facility] Comment on above: Result Comment: CUT- OFF POINTS HAVE BEEN ESTABLISHED BASED ON THE FOURTH UNIVERSAL DEFINITIONS OF MYOCARDIAL INFARCTION. THE UPPER REFERENCE LIMIT (URL) OF TROPONIN, DEFINED THE 99TH PERCENTILE OF cTnI DISTRIBUTION IN A REFERENCE POPULATION, HAS BEEN CONFIRMED THE DECISION THRESHOLD FOR RI DIAGNOSIS. Performed By: #### H STROPN #### [facility] [address] [address] [address] Salinas Tsang HSTROP 6.5 pg/mL Normal 4.0-51.3 [facility] Comment on above: Result Comment: CUT- OFF POINTS HAVE BEEN ESTABLISHED BASED ON THE FOURTH UNIVERSAL DEFINITIONS OF MYOCARDIAL INFARCTION. THE UPPER REFERENCE LIMIT (URL) OF TROPONIN, DEFINED THE 99TH PERCENTILE OF cTnI DISTRIBUTION IN A REFERENCE POPULATION, HAS BEEN CONFIRMED THE DECISION THRESHOLD FOR RI DIAGNOSIS. Performed By: #### C MP, HSTROPN #### [facility] [address] [address] [address] Salinas Tsang XR CHEST 1 Von [...] IVY PASCUAL Date: 2023-03-10 09:59 Normal [facility] INSULINon 09-30-2022 Insulin 22.0 uIU/mL Normal 2.6-24.9 [facility] Comment on above: Performed By: #### I NSULIN #### [facility] [address] [place] [address] Dr. Salinas Tsang BNPon 09-29-2022 Natriuretic peptide B (Bld) [Mass/Vol] 96.0 pg/mL Normal <=1,800.0 [facility] Comment on above: Performed By: #### A 1C #### [facility] [address] [place] [address] Dr. Salinas Tsang CBC AUTO DIFFon 09-29-2022 BASO # 0.0 103/ul Normal 0.0-0.1 [facility] Comment on above: Performed By: #### C BC #### [facility] [address] [place] [address] Dr. Salinas Tsang Basophils/100 WBC (Bld) 0.1 % Critically low 0.2-2.0 [facility] Comment on above: Performed By: #### C BC #### [facility] [address] [place] [address] Dr. Salinas Tsang EO # 0.2 103/ul Normal 0.0-0.7 [facility] Comment on above: Performed By: #### C BC #### [facility] [address] [place] [address] Dr. Salinas Tsang Eosinophils/100 WBC (Bld) 2.1 % Normal 0.9-7.0 [facility] Comment on above: Performed By: #### C BC #### [facility] [address] [place] [address] Dr. Salinas Tsang Erythrocyte distribution width (RBC) [Ratio] 13.1 % Normal 11.0-15.0 [facility] Comment on above: Performed By: #### C BC #### [facility] [address] [place] [address] Dr. Salinas Tsang Hematocrit (Bld) [Volume fraction] 43.6 % Normal 36.0-48.0 [facility] Comment on above: Performed By: #### C BC #### [facility] [address] [place] [address] Dr. Salinas Tsang Hemoglobin (Bld) [Mass/Vol] 14.2 g/dL Normal 12.0-16.0 [facility] Comment on above: Performed By: #### C BC #### [facility] [address] [place] [address] Dr. Salinas Tsang IG # 0.02 10e3/ul Normal 0.00-0.03 [facility] Comment on above: Performed By: #### C BC #### [facility] [address] [place] [address] Dr. Salinas Tsang IG % 0.3 % Normal 0.0-0.5 [facility] Comment on above: Performed By: #### C BC #### [facility] [address] [place] [address] Dr. Salinas Tsang LYMPH # 2.6 103/ul Normal 1.2-3.8 [facility] Comment on above: Performed By: #### C BC #### [facility] [address] [place] [address] Dr. Salinas Tsang Lymphocytes/100 WBC (Bld) 36.8 % Normal 20.5-60.0 [facility] Comment on above: Performed By: #### C BC #### [facility] [address] [place] [address] Dr. Salinas Tsang MANUAL DIFF REQ NO Normal [facility] Comment on above: Performed By: #### C BC #### [facility] [address] [place] [address] Dr. Salinas Tsang MCH (RBC) [Entitic mass] 30.4 pg Normal 26.7-34.0 [facility] Comment on above: Performed By: #### C BC #### [facility] [address] [place] [address] Dr. Salinas Tsang MCHC (RBC) [Mass/Vol] 32.6 g/dL Normal 29.9-35.2 [facility] Comment on above: Performed By: #### C BC #### [facility] [address] [address] [address] Salinas Tsang MCV (RBC) [Entitic vol] 93.4 fL Normal 81.0-99.0 [facility] Comment on above: Performed By: #### C BC #### [facility] [address] [place] [address] Dr. Salinas Tsang MONO # 0.6 103/ul Normal 0.3-0.8 [facility] Comment on above: Performed By: #### C BC #### [facility] [address] [place] [address] Dr. Salinas Tsang Monocytes/100 WBC (Bld) 8.8 % Normal 1.7-12.0 [facility] Comment on above: Performed By: #### C BC #### [facility] [address] [place] [address] Dr. Salinas Tsang NEUT # 3.7 103/ul Normal 1.4-6.5 [facility] Comment on above: Performed By: #### C BC #### [facility] [address] [place] [address] Dr. Salinas Tsang Neutrophils/100 WBC (Bld) 51.9 % Normal 43.0-75.0 [facility] Comment on above: Performed By: #### C BC #### [facility] [address] [place] [address] Dr. Salinas Tsang Platelet mean volume (Bld) [Entitic vol] 9.5 fL Normal 9.5-13.5 [facility] Comment on above: Performed By: #### C BC #### [facility] [address] [place] [address] Dr. Salinas Tsang PLT 194 103/ul Normal 150-450 [facility] Comment on above: Performed By: #### C BC #### [facility] [address] [place] [address] Dr. Salinas Tsang RBC 4.67 106/ul Normal 4.20-5.40 [facility] Comment on above: Performed By: #### C BC #### [facility] [address] [place] [address] Dr. Salinas Tsang WBC 7.1 103/ul Normal 4.0-11.0 [facility] Comment on above: Performed By: #### C BC #### [facility] [address] [place] [address] Dr. Salinas Tsang FREE THYROXINE INDEX T7on FTI 2.28 Normal 1.30-4.50 [facility] Comment on above: Performed By: #### A 1C #### [facility] [address] [place] [address] Dr. Salinas Tsang T3U 34.0 % Normal 30.0-39.0 [facility] Comment on above: Performed By: #### A 1C #### [facility] [address] [place] [address] Dr. Salinas Tsang T4 [Mass/Vol] 6.70 ug/dL Normal 4.80-13.90 [facility] Comment on above: Performed By: #### A 1C #### [facility] [address] [place] [address] Dr. Salinas Tsang GLYCOHEMOGLOBIN A1Con 2021 ADA RECOMMENDATION SEE BELOW Normal [facility] Comment on above: Result Comment: ADA RECOMMENDED LIMIT 4.0 - 6.0 ADA THERAPEUTIC TARGET < 7.0 ACTION SUGGESTED > 7.0 Performed By: #### A 1C #### [facility] [address] [place] [address] Dr. Salinas Tsang Glucose [Mass/Vol] 105 mg/dL Normal [facility] Comment on above: Performed By: #### A 1C #### [facility] [address] [place] [address] Dr. Salinas Tsang HbA1c (Bld) [Mass fraction] 5.3 % Normal 4.5-6.2 [facility] Comment on above: Performed By: #### A 1C #### [facility] [address] [place] [address] Dr. Salinas Tsang IRONon 09-29-2022 Iron [Mass/Vol] 103.0 ug/dL Normal 50.0-170.0 [facility] Comment on above: Performed By: #### A 1C #### [facility] [address] [address] [address] Salinas Tsang LIPID PROFILEon 09-29-2022 CHOL-HDL RATIO NORM SEE BELOW Normal [facility] Comment on above: Result Comment: 3.3 - 4.4 LOW RISK 4.4 - 7.1 AVERAGE RISK 7.1 - 11.0 MODERATE RISK >11.0 HIGH RISK Performed By: #### A 1C #### [facility] [address] [address] [address] Salinas Tsang Cholesterol [Mass/Vol] 143 mg/dL Normal <=200 [facility] Comment on above: Performed By: #### A 1C #### [facility] [address] [address] [address] Salinas Tsang Cholesterol in HDL [Mass/Vol] 39 mg/dL Critically low 40-60 [facility] Comment on above: Performed By: #### A 1C #### [facility] [address] [address] [address] Salinas Tsang Cholesterol in LDL [Mass/Vol] 75.4 mg/dL Normal [facility] Comment on above: Performed By: #### A 1C #### [facility] [address] [address] [address] Salinas Tsang Cholesterol.total/Ch olesterol in HDL [Mass ratio] 3.7 {ratio} Normal [facility] Comment on above: Performed By: #### A 1C #### [facility] [address] [address] [address] Salinas Tsang HDL NORMAL > or = 60 mg/dl - LOW CARDIOVASCULAR RISK <40 mg/dl - HIGH CARDIOVASCULAR RISK Normal [facility] Comment on above: Performed By: #### A 1C #### [facility] [address] [id number] Salinas Tsang LDL CALC NORMAL SEE BELOW Normal [facility] Comment on above: Result Comment: <100 mg/dl OPTIMAL 100 - 129 mg/dl NEAR OR ABOVE OPTIMAL 130 - 159 mg/dl BORDERLINE HIGH 160 - 189 mg/dl HIGH >190 mg/dl VERY HIGH Performed By: #### A 1C #### [facility] [address] [place] [place] [address] Dr. Salinas Tsang Triglyceride [Mass/Vol] 143 mg/dL Normal <=150 [facility] Comment on above: Performed By: #### A 1C #### [facility] [address] [place] [address] Dr. Salinas Tsang VLDL CALC 28.6 mg/dL Normal [facility] Comment on above: Performed By: #### A 1C #### [facility] [address] [place] [address] Dr. Salinas Tsang PROF 14(COMP METB)on 022 Albumin [Mass/Vol] 3.5 g/dL Normal 3.4-5.[address] [facility] Comment on above: Performed By: #### A 1C #### [facility] [address] [place] [address] Dr. Salinas Tsang Albumin/Globulin [Mass ratio] 1.0 {ratio} Normal [facility] Comment on above: Performed By: #### A 1C #### [facility] [address] [place] [address] Dr. Salinas Tsang ALP [Catalytic activity/Vol] 64 U/L Normal 46-116 [facility] Comment on above: Performed By: #### A 1C #### [facility] [address] [place] [address] Dr. Salinas Tsang ALT [Catalytic activity/Vol] 21 U/L Normal 14-59 [facility] Comment on above: Performed By: #### A 1C #### [facility] [address] [place] [address] Dr. Salinas Tsang Anion gap [Moles/Vol] 11.3 mmol/L Normal [facility] Comment on above: Performed By: #### A 1C #### [facility] [address] [place] [address] Dr. Salinas Tsang AST [Catalytic activity/Vol] 22 U/L Normal 15-37 [facility] Comment on above: Performed By: #### A 1C #### [facility] [address] [place] [address] Dr. Salinas Tsang Bilirubin [Mass/Vol] 0.4 mg/dL Normal 0.2-1.0 [facility] Comment on above: Performed By: #### A 1C #### [facility] [address] [place] [address] Dr. Salinas Tsang Calcium [Mass/Vol] 9.0 mg/dL Normal 8.5-10.[address] [facility] Comment on above: Performed By: #### A 1C #### [facility] [address] [address] [address] Salinas Tsang Chloride [Moles/Vol] 106 mmol/L Normal 98-107 [facility] Comment on above: Performed By: #### A 1C #### [facility] [address] [place] [address] Dr. Salinas Tsang CO2 [Moles/Vol] 29.6 mmol/L Normal 21.0-32.0 [facility] Comment on above: Performed By: #### A 1C #### [facility] [address] [place] [address] Dr. Salinas Tsang Creatinine [Mass/Vol] 0.70 mg/dL Normal 0.55-1.02 [facility] Comment on above: Performed By: #### A 1C #### [facility] [address] [place] [address] Dr. Salinas Tsang EGFR-AF KAZAKH >60 Normal >=60 [facility] Comment on above: Performed By: #### A 1C #### [facility] [address] [place] [address] Dr. Salinas Tsang EGFR-NON AF KAZAKH >60 Normal >=60 [facility] Comment on above: Performed By: #### A 1C #### [facility] [address] [place] [address] Dr. Salinas Tsang Globulin (S) [Mass/Vol] 3.4 g/dL Normal [facility] Comment on above: Performed By: #### A 1C #### [facility] [address] [place] [address] Dr. Salinas Tsang Glucose [Mass/Vol] 98 mg/dL Normal 74-106 [facility] Comment on above: Performed By: #### A 1C #### [facility] [address] [address] [address] Salinas Tsang Potassium [Moles/Vol] 3.9 mmol/L Normal 3.5-5.1 [facility] Comment on above: Performed By: #### A 1C #### [facility] [address] [address] [address] Salinas Tsang Protein [Mass/Vol] 6.9 g/dL Normal 6.4-8.[address] [facility] Comment on above: Performed By: #### A 1C #### [facility] [address] [address] [address] Salinas Tsang Sodium [Moles/Vol] 143 mmol/L Normal 136-[address] [facility] Comment on above: Performed By: #### A 1C #### [facility] [address] [place] [address] Dr. Salinas Tsang Urea nitrogen [Mass/Vol] 16.0 mg/dL Normal 7.0-18.0 [facility] Comment on above: Performed By: #### A 1C #### [facility] [address] [place] [address] Dr. Salinas Tsang Urea nitrogen/Creatinine [Mass ratio] 22.9 mg/mg Normal [facility] Comment on above: Performed By: #### A 1C #### [facility] [address] [place] [address] Dr. Salinas Tsang TSHon 09-29-2022 TSH 1.484 uIU/mL Normal 0.358-3.740 [facility] Comment on above: Performed By: #### A 1C #### [facility] [address] [place] [address] Dr. Salinas Tsang VITAMIN B12on 09-29-2022 Cobalamin (Vitamin B12) [Mass/Vol] 488.0 pg/mL Normal 193.0-986.0 [facility] Comment on above: Performed By: #### A 1C #### [facility] [address] [place] [address] Dr. Salinas Tsang VITAMIN D 25 OHon 09-29-2022 VIT D 25-OH 86.8 ng/mL Normal [facility] Comment on above: Performed By: #### A 1C #### [facility] [id number] Salinas Tsang VIT D RANGES SEE BELOW Normal [facility] Comment on above: Result Comment: <20 ng/mL Vit D deficient 20 - <30 ng/mL Vit D insufficient 30 - 100 ng/mL Vit D sufficient >100 ng/mL Potential Toxicity Performed By: #### A 1C #### [facility] [address] [place], [place] [address] Dr. Salinas Tsang XR ABD FLAT UP_PA [...] ABRAHAM ARNETT Date: 2022-08-30 17:04 Normal [facility] Covid-19 PCR (CVDTBH)on 05-28 SARS-CoV-2 (COVID-19) RNA FRANKO+probe Ql (Unsp spec) Detected Critically abnormal NOT DETECTED [facility] Comment on above: Result Comment: This test is not yet approved or cleared by the [place] FDA. When there are no FDA-approved or cleared tests available, and other criteria are met, FDA can make tests available under an emergency access mechanism called an Emergency Use Authorization (EUA). The EUA for this test is supported by the [place] of Health and Human Service's (HHS's) declaration [...] used). Performed By: #### C VDTBH #### [facility] [address] [place] [address] Dr. Salinas Tsang Vital Signs Date Time Vital Sign Value Performing Clinician Racheal allen 06-01-2025 09:58-0400 Body height 152.4 cm Joao Brown DPM Work Phone: [facility] 06-01-2025 09:58-0400 Body mass index (BMI) [Ratio] 28.32 kg/m2 Joao Brown DPM Work Phone: [facility] 06-01-2025 09:58-0400 Body weight 65.77 kg Joao Brown DPM Work Phone: [facility] 06-01-2025 09:58-0400 Respiratory rate 18 /min Joao Brown DPM Work Phone: [facility] 03-29-2025 13:44-0400 Body height 152.4 cm Joao Brown DPM Work Phone: [facility] 03-29-2025 13:44-0400 Body mass index (BMI) [Ratio] 28.32 kg/m2 Joao Brown DPM Work Phone: [facility] 03-29-2025 13:44-0400 Body weight 65.77 kg Joao Brown DPM Work Phone: [facility] 03-29-2025 13:44-0400 Respiratory rate 16 /min Joao Brown DPM Work Phone: [facility] 03-23-2025 10:10-0400 Body height 152.4 cm Joao Brown DPM Work Phone: [facility] 03-23-2025 10:10-0400 Body mass index (BMI) [Ratio] 28.32 kg/m2 Joao Brown DPM Work Phone: [facility] 03-23-2025 10:10-0400 Body weight 65.77 kg Joao Brown DPM Work Phone: [facility] 03-23-2025 10:10-0400 Respiratory rate 16 /min Joao Brown DPM Work Phone: [facility] 02-23-2025 11:33-0400 Body height 152.4 cm Joao Brown DPM Work Phone: [facility] 02-23-2025 11:33-0400 Body mass index (BMI) [Ratio] 28.32 kg/m2 Joao Brown DPM Work Phone: [facility] 02-23-2025 11:33-0400 Body weight 65.77 kg Joao Brown DPM Work Phone: [facility] 02-23-2025 11:33-0400 Respiratory rate 16 /min Joao Brown DPM Work Phone: [facility] 01-12-2025 11:06-0400 Body height 152.4 cm Joao Brown DPM Work Phone: [facility] 01-12-2025 11:06-0400 Body mass index (BMI) [Ratio] 28.32 kg/m2 Joao Brown DPM Work Phone: [facility] 01-12-2025 11:06-0400 Body weight 65.77 kg Joao Brown DPM Work Phone: [facility] 01-12-2025 11:06-0400 Diastolic blood pressure 76 mm[Hg] Joao Brown DPM Work Phone: [facility] 01-12-2025 11:06-0400 Heart rate 83 /min Joao Brown DPM Work Phone: [facility] 01-12-2025 11:06-0400 Systolic blood pressure 128 mm[Hg] Joao Brown DPM Work Phone: [facility] 11-03-2024 11:00-0500 Body height 152.4 cm Joao Brown DPM Work Phone: [facility] 11-03-2024 11:00-0500 Body mass index (BMI) [Ratio] 28.32 kg/m2 Joao Brown DPM Work Phone: [facility] 11-03-2024 11:00-0500 Body weight 65.77 kg Joao Brown DPM Work Phone: [facility] 11-03-2024 11:00-0500 Respiratory rate 16 /min Joao Brown DPM Work Phone: [facility] 08-25-2024 10:57-0400 Body height 152.4 cm Joao Brown DPM Work Phone: [facility] 08-25-2024 10:57-0400 Body mass index (BMI) [Ratio] 28.32 kg/m2 Joao Brown DPM Work Phone: [facility] 08-25-2024 10:57-0400 Body weight 65.77 kg Joao Brown DPM Work Phone: [facility] 08-25-2024 10:57-0400 Diastolic blood pressure 80 mm[Hg] Joao Brown DPM Work Phone: [facility] 08-25-2024 10:57-0400 Heart rate 81 /min Joao Brown DPM Work Phone: [facility] 08-25-2024 10:57-0400 Systolic blood pressure 126 mm[Hg] Joao Brown DPM Work Phone: [facility] 07-21-2024 10:25-0400 Body height 152.4 cm Joao Brown DPM Work Phone: [facility] 07-21-2024 10:25-0400 Body mass index (BMI) [Ratio] 28.32 kg/m2 Joao Brown DPM Work Phone: [facility] 07-21-2024 10:25-0400 Body weight 65.77 kg Joao Brown DPM Work Phone: [facility] 07-21-2024 10:25-0400 Diastolic blood pressure 80 mm[Hg] Joao Brown DPM Work Phone: [facility] 07-21-2024 10:25-0400 Heart rate 75 /min Joao Brown DPM Work Phone: [facility] 07-21-2024 10:25-0400 Respiratory rate 18 /min Joao Brown DPM Work Phone: [facility] 07-21-2024 10:25-0400 Systolic blood pressure 128 mm[Hg] Joao Brown DPM Work Phone: [facility] 07-14-2024 10:26-0400 Body height 152.4 cm Joao Brown DPM Work Phone: [facility] 07-14-2024 10:26-0400 Body mass index (BMI) [Ratio] 28.32 kg/m2 Joao Brown DPM Work Phone: [facility] 07-14-2024 10:26-0400 Body weight 65.77 kg Joao Brown DPM Work Phone: [facility] 07-14-2024 10:26-0400 Diastolic blood pressure 80 mm[Hg] Joao Brown DPM Work Phone: [facility] 07-14-2024 10:26-0400 Heart rate 75 /min Joao Brown DPM Work Phone: [facility] 07-14-2024 10:26-0400 Respiratory rate 18 /min Joao Brown DPM Work Phone: [facility] 07-14-2024 10:26-0400 Systolic blood pressure 128 mm[Hg] Joao Brown DPM Work Phone: [facility] 06-30-2024 09:46-0400 Body height 152.4 cm Joao Brown DPM Work Phone: [facility] 06-30-2024 09:46-0400 Body mass index (BMI) [Ratio] 28.32 kg/m2 Joao Brown DPM Work Phone: [facility] 06-30-2024 09:46-0400 Body weight 65.77 kg Joao Deni DPM Work Phone: [facility] 06-30-2024 09:46-0400 Diastolic blood pressure 80 mm[Hg] Joao Cheema DPM Work Phone: [facility] 06-30-2024 09:46-0400 Heart rate 74 /min Joao Cheema DPM Work Phone: [facility] 06-30-2024 09:46-0400 Respiratory rate 16 /min Joao Cheema DPM Work Phone: [facility] 06-30-2024 09:46-0400 Systolic blood pressure 127 mm[Hg] Joao Deni DPM Work Phone: [facility] Healthcare Encounters Encounter Date Encounter Type Care Provider Facility Start: 06-01-2025 End: 06-01-2025 Bamboo flowsheet Joao Cheema DPM Work Phone: [facility] Start: 06-01-2025 End: 06-01-2025 Bamboo flowsheet Joao Cheema DPM Work Phone: [facility] Start: 06-01-2025 End: 06-01-2025 Patient encounter procedure Joao Cheema DPM Work Phone: [facility] Comment on above: Hav (hallux abducto valgus), right (Primary Dx); Pain due to onychomycosis of toenails of both feet Start: 06-01-2025 End: 06-01-2025 ambulatory JOAO CHEEMA Not Available Start: 03-29-2025 End: 03-29-2025 Bamboo flowsheet Joao Cheema DPM Work Phone: [facility] Start: 03-29-2025 End: 03-29-2025 Bamboo flowsheet Joao Cheema DPM Work Phone: [facility] Start: 03-29-2025 End: 03-29-2025 Patient encounter procedure Joao Cheema DPM Work Phone: [facility] Comment on above: Pain due to onychomy cosis of toenails of both feet (Primary Dx); Hav (hallux abducto valgus), left Start: 03-29-2025 End: 03-29-2025 ambulatory JOAO CHEEMA Not Available Start: 03-23-2025 End: 03-23-2025 Bamboo flowsheet Joao Cheema DPM Work Phone: [facility] Start: 03-23-2025 End: 03-23-2025 Bamboo flowsheet Joao Cheema DPM Work Phone: [facility] Start: 03-23-2025 End: 03-23-2025 Postop follow up visit related to original px Joao Cheema DPM Work Phone: [facility] Comment on above: Hav (hallux abducto valgus), left (Primary Dx); Contracture of left ankle Start: 03-23-2025 End: 03-23-2025 ambulatory JOAO CHEEMA Not Available Start: 03-16-2025 End: 03-16-2025 ambulatory JOAO CHEEMA Not Available Start: 02-23-2025 End: 02-23-2025 Office outpatient visit 25 minutes Joao Cheema DPM Work Phone: [facility] Comment on above: Hav (hallux abducto valgus), left (Primary Dx); Contracture of left ankle Start: 02-23-2025 End: 02-23-2025 ambulatory JOAO CHEEMA Not Available Start: 01-12-2025 End: 01-12-2025 Office outpatient visit 15 minutes Joao Cheema DPM Work Phone: [facility] Comment on above: Hav (hallux abducto valgus), left (Primary Dx); Pain due to onychomycosis of toenails of both feet; PVD (peripheral vascular disease) ([facility]) Start: 01-12-2025 End: 01-12-2025 ambulatory JOAO CHEEMA Not Available Start: 11-03-2024 End: 11-03-2024 Bamboo flowsheet Joao Cheema DPM Work Phone: [facility] Start: 11-03-2024 End: 11-03-2024 Bamboo flowsheet Joao Cheema DPM Work Phone: [facility] Start: 11-03-2024 End: 11-03-2024 Office outpatient visit 15 minutes Joao Cheema DPM Work Phone: [facility] Comment on above: Pain due to onychomy cosis of toenails of both feet (Primary Dx); Hav (hallux abducto valgus), left; PVD (peripheral vascular disease) ([facility] Start: 11-03-2024 End: 11-03-2024 ambulatory JOAO CHEEMA Not Available Start: 09-19-2024 End: 11-07-2024 Telephone encounter Joao Cheema DPM Work Phone: [facility] Start: 08-25-2024 End: 08-25-2024 Bamboo flowsheet Joao Cheema DPM Work Phone: [facility] Start: 08-25-2024 End: 08-25-2024 Bamboo flowsheet Joao Cheema DPM Work Phone: [facility] Start: 08-25-2024 End: 08-25-2024 ambulatory JOAO CHEEMA Not Available Start: 08-25-2024 End: 08-25-2024 Office outpatient visit 15 minutes Joao Cheema DPM Work Phone: [facility] Comment on above: Pain due to onychomy cosis of toenails of both feet (Primary Dx); Hav (hallux abducto valgus), left; Contracture of left ankle Start: 08-25-2024 End: 08-25-2024 ambulatory JOAO Ha CHEEMA Not Available Start: 07-21-2024 End: 07-21-2024 Bamboo flowsheet Joao A Deni DPM Work Phone: [facility] Start: 07-21-2024 End: 07-21-2024 Bamboo flowsheet Joao A Brown DPM Work Phone: [facility] Start: 07-21-2024 End: 07-21-2024 Office outpatient visit 15 minutes Joao A Brown DPM Work Phone: [facility] Comment on above: Onychocryptosis (Annabelle damaris Dx); Toe pain, bilateral Start: 07-21-2024 End: 07-21-2024 ambulatory JOAO Ha CHEEMA Not Available Start: 07-14-2024 End: 07-14-2024 Bamboo flowsheet Joao A Brown DPM Work Phone: [facility] Start: 07-14-2024 End: 07-14-2024 Bamboo flowsheet Joao A Brown DPM Work Phone: [facility] Start: 07-14-2024 End: 07-14-2024 Office outpatient visit 15 minutes Joao Ha Brown DPM Work Phone: [facility] Comment on above: Onychocryptosis (Annabelle damaris Dx); Toe pain, bilateral; Hav (hallux abducto valgus), left Start: 07-14-2024 End: 07-14-2024 ambulatory JOAO A BROWN Not Available Start: 06-30-2024 End: 06-30-2024 Office outpatient visit 15 minutes Joao A Brown DPM Work Phone: [facility] Comment on above: PVD (peripheral vasc ular disease) (CMS/HCC) (Primary Dx); Hav (hallux abducto valgus), left; Onychomycosis; Toe pain, bilateral; Onychocryptosis; Toe pain, left; Toe pain, right Start: 06-30-2024 End: 06-30-2024 ambulatory JOAO CHEEMA Not Available Start: 06-09-2024 End: 06-09-2024 ambulatory JOAO CHEEMA Not Available Start: 03-10-2023 End: 03-10-[address] ANGÉLICA ALBERTO . Facility: Start: 09-29-2022 End: 09-30-[address] ANGÉLICA ALBERTO . Facility:[facility] Start: 08-30-2022 End: 08-30-2022 ambulatory MONTY MERCADO . Facility:[facility] Start: 08-05-[address] ANGÉLICA ALBERTO . Facili ty:[facility] Start: 06-25-2022 End: 06-25-[address] ANGÉLICA ALBERTO . Facility: Procedures Date Procedure Procedure Detail Performing Clinician Start: 03-29-2025 Radex foot complete minimum 3 views Joao Cheema DPWilliam Work Phone: Plan of Treatment Date Care Activity Detail Author Start: 06-26-2025 Influenza vaccination Influenza Vacc ine (#1) [facility] Start: 06-01-2025 End: 06-01-2025 Patient encounter procedure [facility] Comment on above: Pain due to onychomy cosis of toenails of both feet (Primary Dx) Start: 03-29-2025 End: 03-29-2025 Patient encounter procedure 03/29/2025 1:40 PM EDT Office Visit [facility] [address] [place] [address] Joao Cheema DPM [address] [address] Pain due to onychomycosis of toenails of both feet (Primary Dx) [facility] Comment on above: Pain due to onychomy cosis of toenails of both feet (Primary Dx) Start: 03-23-2025 End: 03-23-2025 Patient encounter procedure [facility] Comment on above: Hav (hallux abducto valgus), left (Primary Dx); Contracture of left ankle Start: 03-16-2025 End: 03-16-2025 Patient encounter procedure 03/16/2025 10:20 AM EDT Office Visit [facility] [address] [facility] [address] [place] [address] Joao Cheema DPM [address] [address] [facility] Start: 01-12-2025 End: 01-12-2025 Patient encounter procedure 01/12/2025 11:30 AM EDT Procedure Visit [facility] [address] [address] Joao Cheema DPM [address] [address] [facility] Start: 11-03-2024 End: 11-03-2024 Patient encounter procedure [facility] Comment on above: Pain due to onychomy cosis of toenails of both feet (Primary Dx); Hav (hallux abducto valgus), left; PVD (peripheral vascular disease) ([facility] Start: 08-25-2024 End: 08-25-2024 Professional / ancillary services management 08/25/2024 12:30 PM EDT Ancillary Procedure [facility] [address] [address] Arrived [facility] Comment on above: Arrived Start: 08-25-2024 End: 08-25-2024 Patient encounter procedure 08/25/2024 11:00 AM EDT Procedure Visit [facility] [address] [address] Joao Cheema DPM [address] [address] Hav (hallux abducto valgus), right (Primary Dx); Pain due to onychomycosis of toenails of both feet [facility] Comment on above: Hav (hallux abducto valgus), right (Primary Dx); Pain due to onychomycosis of toenails of both feet Start: 08-18-2024 End: 08-18-2024 Patient encounter procedure 08/18/2024 11:40 AM EDT Procedure Visit [facility] [address] [address] Joao Cheema DPM [address] [address] [facility] Start: 07-21-2024 End: 07-21-2024 Patient encounter procedure 07/21/2024 10:20 AM EDT Office Visit [facility] [address] [address] Joao Cheema DPM [address] [address] Onychocryptosis (Primary Dx); Toe pain, bilateral [facility] Comment on above: Onychocryptosis (Annabelle damaris Dx); Toe pain, bilateral Start: 07-14-2024 End: 07-14-2024 Patient encounter procedure 07/14/2024 10:30 AM EDT Office Visit [facility] [address] [address] Joao Cheema DPM [address] [address] Onychocryptosis (Primary Dx); Toe pain, bilateral; Hav (hallux abducto valgus), left [facility] Comment on above: Onychocryptosis (Annabelle damaris Dx); Toe pain, bilateral; Hav (hallux abducto valgus), left Start: 06-26-2024 Influenza vaccination [facility] XR foot 3 + views left Imaging Routine Hav (hallux abducto valgus), left 08/25/2024 12:25 PM EDT [facility] Work Phone: Immunizations Immunization Date Immunization Notes Care Provider [facility] 07-11-2024 influenza virus vacc ine, unspecified formulation Joao Cheema DPM Work Phone: [facility] 07-13-2023 influenza virus vacc ine, unspecified formulation Joao Cheema DPM Work Phone: [facility] Payers Date Payer Category Payer Medicaid [employer] MEDICARE A DVANTAGE [id number] 2023 Medicare A[employer]NA MEDICARE A DVANTAGE AETNA MEDICARE REPLACEMENT [id number] 2023-Present [address] [place] [address] [id number] 1959 Medicare [id number] 1957 Self-pay 1937 Unknown [id number] [id number]3 1937 Unknown [id number] 2.16.840.1.651212.3.579.2.593 1937 Unknown [id number] 2.16.840.1.829232.3.579.2.593 1937 Unknown [id number] 2.16.840.1.759391.3.579.2.593 1937 Unknown [id number] 2.16.840.1.587746.3.579.2.593 1937 Unknown [id number] 2.16.840.1.732339.3.579.2.1258 1937 Unknown [id number] 2.16.840.1.015319.3.579.2.1258 1937 Unknown [id number] 2.16.840.1.496782.3.579.2.1258 1937 Unknown [id number] 2.16.840.1.858966.3.579.2.1258 1937 Unknown [id number] 2.16.840.1.696670.3.579.2.1258 1937 Unknown [id number] 2.16.840.1.290536.3.579.2.1258 1937 Unknown [id number] 2.16840.1.399001.3.579.2.1258 1937 Unknown [id number] 2.16.840.1.262148.3.579.2.1258 1937 Unknown [id number] 2.16.840.1.417318.3.579.2.1258 1937 Unknown [id number] 2.16.840.1.844106.3.579.2.1258 1937 Unknown [id number] 2.16.840.1.248279.3.579.2.1258 1937 Unknown [id number] 2.16.840.1.605243.3.579.2.1258 1937 Unknown [id number] 2.16.840.1.719051.3.579.2.1258 1937 Unknown [id number] 2.16.840.1.358946.3.579.2.1258 1937 Unknown [id number] 2.16.840.1.331436.3.579.2.125 Social History Date Type Detail Facility Start[facility] Start: 03-03-2024 Tobacco use and exposure Smokeless tobacco non-user [facility] Start: 07-21-2024 End: 06-01-2025 Alcoholic beverage intake Defer [facility] Start: 07-21-2024 End: 06-01-2025 History of Social function [facility] Start: 07-21-2024 End: 06-01-2025 Tobacco use panel [facility] Start: 1935 Sex assigned at Not on file [facility] NEGATED: Highlighted rowStart: NINF History of tobacco use Passive smoker [facility] Clinical Notes 06-30-2024 to 06-01-2025 Joao Cheema, [facility] - 06/01/2025 10:10 AM EDHelga Cheema, [facility] - 03/29/2025 1:40 PM EDTJoao Cheema, [facility] - 02/23/2025 11:30 AM EDTJoao Cheema, [facility] - 11/03/2024 10:50 AM EST Note Date & Type Note Facility 06-01-2025 History of Presen t illness Narrative Patient: Flores Daniel : 1935 PCP: Angélica Alberto MD SUBJECTIVE This is a 89 y.o. female that presents today with prior left Soliman bunionectomy Patient presents today with a CC of elongated, thick nails. Pt states nails have been elongated and thick for many years and cause pain with ambulation in shoegear. Pt has tried previous treatment with minimal relief. Pt presents today for nail care and treatment. Unrelated to prior surgery Patient now presents today with complaints of right foot bunion that is painful with ambulation and states she would like to have surgical intervention in the near future as she has tried different wider shoe gears with minimal improvement and had previous left Soliman bunionectomy Allergies: No Known Allergies Past Medical History: Past Medical History: Diagnosis Date History of hysterectomy Hypertension Skin cancer (melanoma) (HCC) Medications: Current Outpatient Medications: aspirin 81 MG [...] 20 MG tablet, , Disp: , Rfl: ROS: Gastrointestinal: denies abdominal pain, ulcers, or changes in appetite or bowel habits Musculoskeletal: 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 Cardiovascular: denies CP, palpitations, irregular rhythms OBJECTIVE LE EXAM: Derm: skin intact to left foot Elongated thick yellow crumbly nails digits 1-10. Diminished hair growth to b/l feet. Rubor to dorsal medial eminence of 1st metatarsal head right Vascular: non Palpable pedal pulses to left foot Neuro: Gross sensation intact to left foot. Musculoskeletal: Negative pain on palpation toleft calf. Ortho: Ankle range of motion less than 10 degrees of dorsiflexion at left ankle joint. 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 Pain due to onychomycosis of toenails of both feet 2. Hav (hallux abducto valgus), right PLAN Debrided nails in length and thickness digits 1-10, unrelated to prior surgery Discussed conservative and surgical treatment options for patient today including postoperative time frame and surgical procedure in detail. Patient may continue with conservative treatments including qtkd-dgd-ovrzabr anti-inflammatories and other treatments suggested today. Patient may want to be scheduled for surgical intervention in the near future. Patient of the right Soliman bunionectomy and will see Dr. Alcala for preoperative clearance and patient like in the very near future Joao Cheema DPM documented in this encounter [facility] 03-29-2025 History of Presen t illness Narrative Patient: Flores Cantor Daniel : 1935 PCP: Angélica Alberto MD SUBJECTIVE This is a 89 y.o. female that presents today 21 days s/p left Soliman bunionectomy Pt denies n/f/v/c and has minimal pain to post op site. Pt states that they have been keeping dressing dry and intact and have been partial weight-bearing to post op foot with walking boot Pt presents today for follow up. Patient presents today with a CC of elongated, thick nails. Pt states nails have been elongated and thick for many years and cause pain with ambulation in shoegear. Pt has tried previous treatment with minimal relief. Pt presents today for nail care and treatment. Allergies: No Known Allergies Past Medical History: Past Medical History: Diagnosis Date History of hysterectomy Hypertension ([facility]/HCC) Skin cancer (melanoma) ([facility]) Medications: Current Outpatient Medications: aspirin 81 MG [...] 20 MG tablet, , Disp: , Rfl: ROS: General: denies fever, chills, fatigue, malaise OBJECTIVE LE EXAM: Derm: Sutures intact to left foot with negative erythema, negative drainage, minimal edema with negative clinical signs of infection. K-wire intact to left hallux Elongated thick yellow crumbly nails digits 1-10. Diminished hair growth to b/l feet. Vascular: non Palpable pedal pulses to left foot Neuro: Gross sensation intact to left foot. Musculoskeletal: Negative pain on palpation toleft calf. Ortho: Ankle range of motion less than 10 degrees of dorsiflexion at left ankle joint. Rectus left hallux Positive pain on palpation to toenails of the left 1,2,3,4,5 toes and right 1,2,3,4,5 toes X-ray: XR foot 3+ views left Imaging Result: Notable Soliman bunionectomy with rectus left great toe and arthroplasty the base of proximal phalanx of left great toe ASSESSMENT 21 days s/p left Soliman bunionectomy with K-wire 1. Pain due to onychomycosis of toenails of both feet PLAN Removal of kwire under sterile conditions. Return to normal shoe gear. Debrided nails in length and thickness digits 1-10 Joao Cheema DPM documented in this encounter [facility] 02-23-2025 History of Presen t illness Narrative Patient: Flores Daniel : 1935 PCP: Angélica Alberto MD SUBJECTIVE This is a 89 y/o female that presents today with chronic complaints of left HAV deformity. She has tried multiple conservative treatments with negative improvement. States pain a 05/04 and Scheduled for a left Soliman bunionectomy And presents today for preoperative evaluation and examination Patient had recent LEONARD PVRs with notable healing potential to postop sites Allergies: No Known Allergies Past Medical History: Past Medical History: Diagnosis Date History of hysterectomy Hypertension (CMS/HCC) Skin cancer (melanoma) (CMS/[facility]) Medications: Current Outpatient Medications: aspirin 81 MG [...] Partner Violence: Unknown (12/17/2023) Received from [facility] [place] [facility] Fear of Current or Ex-Partner: Not on file Emotionally Abused: Not on file Physically Abused: Not on file Sexually Abused: Not on file Physically or Sexually Abused: Not on file Housing Stability: Not on file ROS: General: denies fever, chills, fatigue, malaise Gastrointestinal: denies abdominal pain, ulcers, or changes in appetite or bowel habits Musculoskeletal: positive hx of arthritis, denies loss of strength, pain to [...] medial eminence of the 1st metatarsal LEONARD/PVR [facility] relates normal findings per report Verbal order today for x-rays be taken by staff. AP/Oblique/Lateral 3 view radiographs today of the left foot demonstrated the following: Notable left IM angle of the HAV deformity of 12 degrees with elongated proximal phalanx of left hallux ASSESSMENT 1. Hav (hallux abducto valgus), left 2. Contracture of left ankle PLAN Pt dispensed pneumatic CAM walker ([id number]) today to maintain 90 degree foot to ankle position. Pt informed to only remove walker when at rest or bathing. ABN signed and in chart for device if warranted. The boot was assembled and adjusted liner and straps and pneumatically inflated for proper custom fitting by Joao Cheema DPM and staff. A verbal order was given for dispensing of device. The patient is ambulatory and may benefit functionally from this device. It may be used for the following conditions as noted per medical diagnosis. Patient given prescription for pain medication to be taken postoperatively. Decision for surgery today and patient medically cleared from a podiatric standpoint for surgery and to proceed with surgery. Pt to have pre op H/P per PCP for medical clearance for surgery and will be reviewed along with labs prior to surgery. Pt scheduled for a left soliman bunionectomy. Discussed with the patient the nature of condition and operative vs nonoperative care. The surgical plans, risks, alternatives, benefits, post op complications and parts counterman expectations were discussed including but not limited to: infection,bone infection,wound dehiscence hardware failure and irritation,wound dehiscence,delay union/mal union/non union of bone. RSDS,neuroma,duty limitations,DVT/PE, RI,nerve damage, scar, loss of sensation, swelling.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
[2025-06-08 09:03] LABS: Hematocrit 43.1 % (36.0-48.0); Hemoglobin 14.5 g/dL (12.0-16.0); Immature Granulocytes Abs Auto 0.01 10^3/uL (0.00-0.03); Immature Granulocytes Pct Auto 0.1 % (0.0-0.5); Lymphocytes Absolute Auto 2.7 10^3/uL (1.2-3.8); Mean Corpuscular HGB Conc 33.6 g/dL (29.9-35.2); Mean Corpuscular Hemoglobin 31.8 pg (26.7-34.0); Mean Corpuscular Volume 94.5 fL (81.0-99.0); Platelet Count 186 10^3/uL (150-450); Red Blood Count 4.56 10^6/uL (4.20-5.40); White Blood Count 8.8 10^3/uL (4.0-11.0)
[2025-06-08 09:21] LABS: Anion Gap 12.2; Blood Urea Nitrogen 17.0 mg/dL (7.0-18.0); Calcium 9.9 mg/dL (8.5-10.1); Carbon Dioxide 29.8 mmol/L (21.0-32.0); Chloride 105 mmol/L (98-107); Estimated GFR (African America >60 (>=60 mL/min/1.73m^2); Estimated GFR (Non-African Ame >60 (>=60 mL/min/1.73m^2); Glucose 95 mg/dL (74-106); Potassium 4.0 mmol/L (3.5-5.1); Sodium 143 mmol/L (136-145)
== END 2025-06-08 08:16 | disposition home or self-care (01) ==
PROVIDERS: PCP Family Medicine
DX: Z01.812 Encounter for preprocedural laboratory examination (principal); Z01.818 Encounter for other preprocedural examination
CPT/HCPCS: 36415; 80048; 85025